=== PATIENT | female | born 1975 | race Caucasian/White ===

== ENCOUNTER 2016-11-08 19:42 | Emergency (ER) | payer OTHER, SELFPAY ==
[2016-11-08] MEDS ORDERED: MORPHINE SULFATE 4 MG INJ IV ONE (20:18)
[2016-11-08] MEDS ORDERED: Phenergan 25 MG INJ IV ONE (20:18)
--- NOTE | 2016-11-08 20:25 | ERPHSYRPT ---
- History of Present Illness Time Seen by Provider: 11/08/16 20:11 Historian: patient Exam Limitations: no limitations Patient Subjective Stated Complaint: states that she began having lower abd pain this morning - painful urination - history of ovarian cysts Triage Nursing Assessment: ambulatory to treatment area - steady gait - moves all extremities with equal strength. alert/oriented - unpleasant affect. skin pwd - no rash/injury. resps easy - non-labored. tenderness of abd Physician History: FOR THE PAST 9 HOURS PT HAS HAD INTERMITTENT SHARP LOWER ABDOMINAL PAIN WITH LOW BACK PAIN LASTING UP TO 5 MINUTES PER EPISODE. LAST BM WAS THIS AM & WNL. LMP STARTED YESTERDAY. PT STATES SHE HAS A HX OF OVARIAN CYSTS. PT DENIES FEVER , COUGH, CHILLS, DIAPHORESIS, DYSURIA; ADMITS TO RIGHT EYE REDNESS SINCE THIS AM. Allergies/Adverse Reactions: Sulfa (Sulfonamide Antibiotics) [Sulfa(Sulfonamide Antibiotics)] Allergy ( Verified 11/08/16 19:52) Home Medications: Chlorzoxazone 500 mg PO Q4-6HPRN 01/03/16 [History] Trihexyphenidyl HCl 4 mg PO TID 01/03/16 [History] Hydrocodone Bit/Acetaminophen [[place]ale 5/325Mg] 1 each PO Q4-6HPRN PRN 02/25/16 [ History] Clonazepam 0.5 mg [Klonopin 0.5 MG] 0.5 mg PO TID 03/07/16 [History] Gabapentin [Neurontin] 300 mg PO HS 03/07/16 [History] Meloxicam 7.5 mg [Mobic 7.5 MG] 7.5 mg PO HS 03/07/16 [History] Dicyclomine HCl [Bentyl] 10 mg PO QID 05/08/16 [History] Hx Tetanus, Diphtheria Vaccination/Date Given: Yes Hx Influenza Vaccination/Date Given: No Hx Pneumococcal Vaccination/Date Given: No Immunizations Up to Date: Yes - Review of Systems Eyes: Eye Redness (RIGHT) Respiratory: No Dyspnea on Exertion (DRUMMOND) Cardiac: No Chest Pain Abdominal/Gastrointestinal: Abdominal Pain Musculoskeletal: Back Pain (LOW) Endocrine: No Excessive Sweating All Other Systems: Reviewed and Negative - Past Medical History Pertinent Past Medical History: Yes Neurological History: No Pertinent History ENT History: No Pertinent History Cardiac History: No Pertinent History Respiratory History: No Pertinent History Endocrine Medical History: No Pertinent History Musculoskeletal History: Other GI Medical History: No Pertinent History History: No Pertinent History Psycho-Social History: Anxiety Female Reproductive Disorders: Abnormal Uterine Bleeding, Menstrual Problems, Other Other Medical History: DYSTONIA DISORDER - Past Surgical History Past Surgical History: Yes Neuro Surgical History: No Pertinent History Cardiac: No Pertinent History Respiratory: No Pertinent History Gastrointestinal: No Pertinent History Genitourinary: No Pertinent History Musculoskeletal: No Pertinent History Female Surgical History: Section, Tubal Ligation, Other Other Surgical History: COCHL. EAR IMPLANT - Social History Smoking Status: Current every day smoker How long have you smoked: 25 Exposure to second hand smoke: No Drug Use: none Patient Lives Alone: No - Female History Hx Last Menstrual Period: 2 days Hx Now: No - Nursing Vital Signs Nursing Vital Signs: Initial Vital Signs Temperature 99.6 F Temperature Source Oral Pulse Rate 80 Respiratory Rate 14 Blood Pressure [] 118/62 Pain Intensity 7 - Physical Exam General Appearance: alert Eye Exam: other (RIGHT CONJUNCTIVAE INJECTED) Ears, Nose, Throat Exam: TMs normal, pharynx normal, moist mucous membranes Neck Exam: normal inspection Respiratory Exam: lungs clear Cardiovascular Exam: normal heart sounds Gastrointestinal/Abdomen Exam: soft, normal bowel sounds, tenderness (MILD LOWER ABDOMINAL TENDERNESS) Back Exam: other (MILD LUMBAR PARAVERTEBRAL MUSCLE TENDERNESS) Extremity Exam: normal inspection, No pedal edema Neurologic Exam: alert, cooperative Skin Exam: warm, dry SpO2 Interpretation: normal SpO2: 99 Oxygen Delivery: Room Air - Course Nursing assessment & vital signs reviewed: Yes - CT Exams Abdomen/Pelvis CT Interpretation: Tele-radiologist Report (NO ACUTE FINDINGS) - Radiology Ultrasound Exam Pelvis Ultrasound: Other (TECH REPORT: NOTHING ABNORMAL.) Ordered Tests: Active Orders 24 hr Category Date Time Status Clean Catch Urine Specimen STAT Care 11/08/16 20:18 Active IV Insertion STAT Care 11/08/16 20:18 Active ABDOMEN AND PELVIS W/0 CONTRAS [CT] Stat Exams 11/08/16 21:03 Taken PELVIS TRANS VAGINAL [US] Stat Exams 11/08/16 20:18 Taken AMYLASE Stat Lab 11/08/16 20:33 Completed CBC W DIFF Stat Lab 11/08/16 20:33 Completed CMP Stat Lab 11/08/16 20:33 Completed HCG QUALITATIVE,SERUM Stat Lab 11/08/16 20:33 Completed LIPASE Stat Lab 11/08/16 20:33 Completed MAGNESIUM Stat Lab 11/08/16 20:33 Completed UA W/ MICROSCOPIC Stat Lab 11/08/16 20:30 Completed Medication Summary Generic Name Dose Route Start Last Admin Trade Name Jackie PRN Reason Stop Dose Admin Sodium Chloride 1,000 mls @ 100 mls/hr 11/08/16 20:30 11/08/16 20:44 Sodium Chloride 0.9% 1000 Ml IV 12/08/16 20:29 100 mls/hr .Q10H NATHALY Administration Discontinued Medications Generic Name Dose Route Start Last Admin Trade Name Jackie PRN Reason Stop Dose Admin Morphine Sulfate 4 mg 11/08/16 20:18 11/08/16 20:44 Morphine Sulfate 4 Mg Inj IV 11/08/16 20:19 4 mg STAT ONE Administration Morphine Sulfate Confirm 11/08/16 20:35 Morphine Sulfate 4 Mg Inj Administered 11/08/16 20:36 Dose 4 mg .ROUTE .STK-MED ONE Promethazine HCl 12.5 mg 11/08/16 20:18 11/08/16 20:44 Phenergan 25 Mg Inj IV 11/08/16 20:19 12.5 mg STAT ONE Administration Promethazine HCl Confirm 11/08/16 20:35 Phenergan 25 Mg Inj Administered 11/08/16 20:36 Dose 25 mg .ROUTE .STK-MED ONE Lab/Rad Data: Laboratory Result Diagrams 11/08/16 20:33 11/08/16 20:33 Laboratory Results 11/08/16 11/08/16 11/08/16 Range/Units 20:33 20:33 20:33 WBC 12.3 H (4.0-10.5) K/mm3 RBC 4.01 L (4.1-5.4) M/mm3 Hgb 11.8 L (12.0-16.0) gm/dl Hct 36.3 (35-47) % MCV 90.5 (78-100) fl MCH 29.4 (26-32) pg MCHC 32.5 (32-36) g/dl RDW 14.6 H (11.5-14.0) % Plt Count 338 (150-450) K/mm3 MPV 10.8 H (6-9.5) fl Gran % 64.9 (36.0-66.0) % Lymphocytes % 26.4 (24.0-44.0) % Monocytes % 6.7 (0.0-12.0) % Eosinophils % 1.4 (0.00-5.0) % Basophils % 0.6 (0.0-0.4) % Basophils # 0.08 (0-0.4) Sodium 139 (136-145) mEq/L Potassium 4.2 (3.5-5.1) mEq/L Chloride 104 (98-107) mEq/L Carbon Dioxide 27.3 (21-32) mEq/L Anion Gap 12.2 (5-15) MEQ/L BUN 15 (9-20) mg/dL Creatinine 0.98 (0.55-1.30) mg/dl Estimated GFR > 60 ML/MIN Glucose 89 (70-110) MG/DL Calcium 8.1 L (8.5-10.1) mg/dL Magnesium 1.8 (1.8-2.4) mg/dL Total Bilirubin 0.1 L (0.2-1.0) mg/dL AST 16 (15-37) U/L ALT 27 (12-78) U/L Alkaline Phosphatase 67 (46-116) U/L Serum Total Protein 6.7 (6.4-8.2) gm/dL Albumin 3.5 (3.4-5.0) g/dL Amylase 39 (25-115) U/L Lipase 138 (73-393) U/L Serum , Qual NEGATIVE (Negative) Ur Collection Type Urine Color (YELLOW) Urine Appearance (CLEAR) Urine pH (5-6) Ur Specific [place] (1.005-1.025) Urine Protein (Negative) Urine Glucose (UA) (NEGATIVE) mg/dL Urine Ketones (NEGATIVE) Urine Nitrite (NEGATIVE) Urine Bilirubin (NEGATIVE) Urine Urobilinogen (0-1) mg/dL Urine WBC (Auto) (NEGATIVE) Urine RBC (Auto) (0-5) Ethan/ul Ur Epithelial Cells (FEW) /HPF Urine Mucus (NEGATIVE) /HPF Specimen Received 11/08/16 Range/Units 20:30 WBC (4.0-10.5) K/mm3 RBC (4.1-5.4) M/mm3 Hgb (12.0-16.0) gm/dl Hct (35-47) % MCV (78-100) fl MCH (26-32) pg MCHC (32-36) g/dl RDW (11.5-14.0) % Plt Count (150-450) K/mm3 MPV (6-9.5) fl Gran % (36.0-66.0) % Lymphocytes % (24.0-44.0) % Monocytes % (0.0-12.0) % Eosinophils % (0.00-5.0) % Basophils % (0.0-0.4) % Basophils # (0-0.4) Sodium (136-145) mEq/L Potassium (3.5-5.1) mEq/L Chloride (98-107) mEq/L Carbon Dioxide (21-32) mEq/L Anion Gap (5-15) MEQ/L BUN (9-20) mg/dL Creatinine (0.55-1.30) mg/dl Estimated GFR ML/MIN Glucose (70-110) MG/DL Calcium (8.5-10.1) mg/dL Magnesium (1.8-2.4) mg/dL Total Bilirubin (0.2-1.0) mg/dL AST (15-37) U/L ALT (12-78) U/L Alkaline Phosphatase (46-116) U/L Serum Total Protein (6.4-8.2) gm/dL Albumin (3.4-5.0) g/dL Amylase (25-115) U/L Lipase (73-393) U/L Serum , Qual (Negative) Ur Collection Type CLEAN CATCH Urine Color YELLOW (YELLOW) Urine Appearance SLIGHTLY CLOUDY (CLEAR) Urine pH 6.0 (5-6) Ur Specific [place] 1.025 (1.005-1.025) Urine Protein 30 (Negative) Urine Glucose (UA) NEGATIVE (NEGATIVE) mg/dL Urine Ketones NEGATIVE (NEGATIVE) Urine Nitrite NEGATIVE (NEGATIVE) Urine Bilirubin NEGATIVE (NEGATIVE) Urine Urobilinogen 1 (0-1) mg/dL Urine WBC (Auto) NEGATIVE (NEGATIVE) Urine RBC (Auto) NEGATIVE (0-5) Ethan/ul Ur Epithelial Cells FEW (FEW) /HPF Urine Mucus SLIGHT (NEGATIVE) /HPF Specimen Received 11/08/16:2330 - Departure Time of Disposition: 22:33 Departure Disposition: Home Clinical Impression: ABDOMINAL PAIN, LOW BACK PAIN, CONJUNCTIVITIS OF RIGHT EYE Condition: Fair Critical Care Time: No Referrals: ELZBIETA VALERA MD [Primary Care Provider] - Instructions: Abdominal Pain-Adult, Low Back Pain, Conjunctivitis Additional Instructions: FOLLOW UP WITH PRIVATE DOCTOR TOMORROW. Prescriptions: Sulfacetamide Sodium Ophth [Sodium Sulamyd Eye Drops 15 ml] 2 drops OP TID #1 bottle
[2016-11-08] MEDS ORDERED: Sodium Chloride 0.9% 1000 ML 1,000 ML IV SCH (20:30)
[2016-11-08] MEDS ORDERED: Phenergan 25 MG INJ ONE (20:35)
[2016-11-08] MEDS ORDERED: Sodium Chloride 0.9% 1000 ML 1,000 ML ONE (20:35)
[2016-11-08] MEDS ORDERED: MORPHINE SULFATE 4 MG INJ ONE (20:35)
[2016-11-08 20:39] LABS: BASOPHIL % 0.6 % (0.0-0.4); Eosinophil % 1.4 % (0.00-5.0); Granulocytes % 64.9 % (36.0-66.0); Lymphocytes % 26.4 % (24.0-44.0); Mean Cell Volume 90.5 fl (78-100); Mean Corpuscular Hemoglobin 29.4 pg (26-32); Mean Platelet Volume 10.8 fl (6-9.5); Monocytes % 6.7 % (0.0-12.0); Platelet Count 338 K/mm3 (150-450); Red Blood Count 4.01 M/mm3 (4.1-5.4); Red Cell Distribution Width 14.6 % (11.5-14.0); White Blood Count 12.3 K/mm3 (4.0-10.5)
[2016-11-08 20:41] LABS: COMPLETE URINE MICROSCOPIC? YES; Collection Type CLEAN CATCH; Epithelial Cells FEW /HPF (FEW); Mucus SLIGHT /HPF (NEGATIVE)
[2016-11-08 21:05] LABS: ALBUMIN 3.5 g/dL (3.4-5.0); ALKALINE PHOSPHATASE 67 U/L (46-116); ANION GAP 12.2 MEQ/L (5-15); BILIRUBIN,TOTAL 0.1 mg/dL (0.2-1.0); BLOOD UREA NITROGEN 15 mg/dL (9-20); CHLORIDE 104 mEq/L (98-107); Carbon Dioxide 27.3 mEq/L (21-32); Glucose 89 MG/DL (70-110); LIPASE 138 U/L (73-393); MAGNESIUM 1.8 mg/dL (1.8-2.4); Potassium 4.2 mEq/L (3.5-5.1); SGOT/AST 16 U/L (15-37); SGPT/ALT 27 U/L (12-78); SODIUM 139 mEq/L (136-145); Total Protein 6.7 gm/dL (6.4-8.2)
[2016-11-08] MEDS ORDERED: Hydromorphone 1 mg/ml Ampule IV ONE (22:37)
[2016-11-08] MEDS ORDERED: SODIUM SULAMYD EYE DROPS 15 ML OP ONE ×2 (22:40→22:45)
[2016-11-08] MEDS ORDERED: Hydromorphone 1 mg/ml Ampule ONE (22:40)
[2016-11-08] MEDS ORDERED: GARAMYCIN 0.3% OPHTH SOL OP ONE (22:41)
[2016-11-08] MEDS ORDERED: GARAMYCIN 0.3% OPHTH SOL ONE (22:44)
[2016-11-08 22:55] VITALS: BP 114/63; PULSE 78; O2SAT 97
--- NOTE | 2016-11-09 08:07 | XRAY ---
Indication: Lower abdominal pain. Dysuria. Multiple contiguous axial images obtained through the abdomen and pelvis without contrast as ordered. Comparison: April 11, 2014. Lung bases demonstrates mild bilateral dependent atelectasis. No consolidation or effusion. Heart is not enlarged. Noncontrasted stomach and bowel loops appear nonobstructed. Mild diffuse scattered colonic fecal debris. Appendix not seen. No free fluid/air. There remains a few bilateral pelvic phleboliths. Remaining liver, gallbladder, pancreas, spleen, adrenal glands, kidneys, ureters, bladder, and uterus appear unremarkable for noncontrast exam. Minimal calcifications of the aortoiliac vessels without AAA. Osseous structures intact. Impression: Mild fecal stasis without obstruction. No new or acute intra-abdominal/pelvic abnormalities on this noncontrast exam. Comment: Preliminary interpretation was made by [facility]. No discrepancy. CTDI 8.48
--- NOTE | 2016-11-09 08:09 | XRAY ---
Indication: Right lower quadrant pain. Two-dimensional transvaginal pelvic ultrasound was performed. Comparison: March 21, 2009. Uterus is anteverted today measuring 9.7 x 4.4 x 5.5 cm. No focal solid/cystic mass. Endometrial stripe measures 5 mm. No endometrial cavity mass or fluid collection. Right ovary measures 1.7 x 1.0 x 1.7 cm and the left measures 1.5 x 0.8 x 1.6 cm. Normal perfusion bilaterally. No suspicious adnexal mass or free fluid. Impression: Negative transvaginal pelvic sonogram. Comment: Preliminary report was given.
== END 2016-11-08 22:57 | disposition home or self-care (01) ==
LOC: ED 19:42
DX: R10.9 Unspecified abdominal pain (principal); M54.5 Low back pain; H10.89 Other conjunctivitis; Z85.43 Personal history of malignant neoplasm of ovary; F17.200 Nicotine dependence, unspecified, uncomplicated
CPT/HCPCS: 36000; 36415; 74176; 76830; 80053; 81000; 82150; 83690; 83735; 84703; 85025; 96360; 96361; 96374; 96375; 99283; 99285; J1170; J2270; J2550; A9270-GY

== ENCOUNTER 2017-09-04 12:17 | Emergency (ER) | payer OTHER ==
[2017-09-04] MEDS ORDERED: Sodium Chloride 0.9% 1000 ML 1,000 ML IV STA (12:31)
[2017-09-04] MEDS ORDERED: TORAdol 30 mg Injection IV ONE (12:31)
[2017-09-04] MEDS ORDERED: ATARAX 25 MG PO ONE (12:32)
[2017-09-04] MEDS ORDERED: ATARAX 25 MG ONE (12:43)
[2017-09-04] MEDS ORDERED: Sodium Chloride 0.9% 1000 ML 1,000 ML ONE (12:43)
[2017-09-04] MEDS ORDERED: TORAdol 30 mg Injection ONE (12:43)
--- NOTE | 2017-09-04 12:44 | ERPHSYRPT ---
- History of Present Illness Time Seen by Provider: 09/04/17 12:19 Source: patient, family Patient Subjective Stated Complaint: PT COMPLAINS OF LOWER ABDOMINAL PAIN SINCE LAST. NIGHT STATES THAT SHE HAS NOTICED THAT SHE HAS. INCREASED ABDOMINAL PAIN WHEN SHE IS ON HER. PERIOD DENIES NAUSEA OR VOMITING. STATES SHE. WAS 2 MONTHS LATE ON HER PERIOD. Triage Nursing Assessment: PT ALERT WARM AND DRY RESP EASY NON LABORED ABDOMEN. SOFT NON TENDER ON PALPATION. Physician History: CC: lower abd pain Hx: 41 y/o patient of Dr Valera with hx of cochlear implant. She has intermittent lower abdominal pain associated with menses. She missed menses for 2 months, now on menses with discomfort. No vomiting. No fever or chills. Normal urination. Some vaginal discharge. She had prior BTL and hernia repairs. Severity of Pain-Max: moderate Severity of Pain-Current: moderate Allergies/Adverse Reactions: Sulfa (Sulfonamide Antibiotics) [Sulfa(Sulfonamide Antibiotics)] Allergy ( Verified 11/08/16 19:52) Home Medications: Trihexyphenidyl HCl 1 mg PO TID 01/03/16 [History] Hydrocodone Bit/Acetaminophen [[place] 5/325Mg] 1 each PO Q4-6HPRN PRN 02/25/16 [ History] Clonazepam 0.5 mg [Klonopin 0.5 MG] 0.5 mg PO TID 03/07/16 [History] Gabapentin [Neurontin] 300 mg PO HS 03/07/16 [History] Dicyclomine HCl [Bentyl] 10 mg PO QID 05/08/16 [History] Hx Tetanus, Diphtheria Vaccination/Date Given: Yes Hx Influenza Vaccination/Date Given: No Hx Pneumococcal Vaccination/Date Given: No - Review of Systems Constitutional: Malaise, No Fever, No Chills Eyes: No Symptoms Ears, Nose, & Throat: No Symptoms Respiratory: No Cough, No Dyspnea Cardiac: No Chest Pain Abdominal/Gastrointestinal: Abdominal Pain, No Nausea, No Vomiting, No Diarrhea Genitourinary Symptoms: Vaginal Bleeding, Vaginal Discharge, No Dysuria, No Musculoskeletal: No Back Pain Skin: No Rash Neurological: No Headache All Other Systems: Reviewed and Negative - Past Medical History Pertinent Past Medical History: Yes Neurological History: No Pertinent History ENT History: No Pertinent History Cardiac History: No Pertinent History Respiratory History: No Pertinent History Endocrine Medical History: No Pertinent History Musculoskeletal History: Other GI Medical History: No Pertinent History History: No Pertinent History Psycho-Social History: Anxiety Female Reproductive Disorders: Abnormal Uterine Bleeding, Menstrual Problems, Other Other Medical History: DYSTONIA DISORDER - Past Surgical History Past Surgical History: Yes Neuro Surgical History: No Pertinent History Cardiac: No Pertinent History Respiratory: No Pertinent History Gastrointestinal: No Pertinent History Genitourinary: No Pertinent History Musculoskeletal: No Pertinent History Female Surgical History: Section, Tubal Ligation, Other Other Surgical History: COCHL. EAR IMPLANT - Social History Smoking Status: Never smoker How long have you smoked: 25 Exposure to second hand smoke: Yes Drug Use: none Patient Lives Alone: No - Female History Hx Last Menstrual Period: NOW Hx Now: (HCG pending) - Nursing Vital Signs Nursing Vital Signs: Initial Vital Signs Temperature 98.4 F 09/04/17 12:31 Pulse Rate 61 09/04/17 12:31 Respiratory Rate 18 09/04/17 12:31 Blood Pressure 96/52 09/04/17 12:31 O2 Sat by Pulse Oximetry 96 09/04/17 12:31 Pain Scale Pain Intensity 6 - Physical Exam General Appearance: alert, thin, other (appears to understand speech and communicates well) Eye Exam: PERRL/EOMI Ears, Nose, Throat Exam: normal ENT inspection, moist mucous membranes Neck Exam: normal inspection, non-tender, supple Respiratory Exam: normal breath sounds, lungs clear Cardiovascular Exam: regular rate/rhythm Gastrointestinal/Abdomen Exam: soft, No tenderness, No distention, No mass, No guarding Pelvic Exam: normal external exam, cervical motion tenderness, vaginal bleeding (menses appears normal and mild), uterine tenderness, No adnexal mass, No vaginal discharge Back Exam: normal inspection, normal range of motion Extremity Exam: normal inspection, normal range of motion Neurologic Exam: alert, oriented x 3, cooperative, sensation nml, No motor deficits Skin Exam: warm, dry, No rash - Course Nursing assessment & vital signs reviewed: Yes - Radiology Exams AAS X-ray Interpretation: Teleradiologist Report, Negative Ordered Tests: Active Orders 24 hr Category Date Time Status Cath for Specimen-Straight STAT Care 09/04/17 12:32 Active IV Insertion STAT Care 09/04/17 12:31 Active Pelvic Exam Assist STAT Care 09/04/17 12:31 Active OBSTR/ACUTE ABDOMEN SERIES Stat Exams 09/04/17 12:31 Completed CBC W DIFF Stat Lab 09/04/17 12:46 Completed CMP Stat Lab 09/04/17 12:46 Completed HCG QUALITATIVE,SERUM Stat Lab 09/04/17 12:46 Completed LIPASE Stat Lab 09/04/17 12:46 Completed UA W/RFX UR CULTURE Stat Lab 09/04/17 13:12 Completed Wet Prep Stat Lab 09/04/17 13:12 Completed Medication Summary Discontinued Medications Generic Name Dose Route Start Last Admin Trade Name Freq PRN Reason Stop Dose Admin Hydroxyzine HCl 25 mg 09/04/17 12:32 09/04/17 12:45 Atarax 25 Mg PO 09/04/17 12:33 25 mg STAT ONE Administration Hydroxyzine HCl Confirm 09/04/17 12:43 Atarax 25 Mg Administered 09/04/17 12:44 Dose 25 mg .ROUTE .STK-MED ONE Sodium Chloride 1,000 mls @ 999 mls/hr 09/04/17 12:31 09/04/17 12:45 Sodium Chloride 0.9% 1000 Ml IV 09/04/17 13:31 999 mls/hr .Q1H1M STA Administration Sodium Chloride Confirm 09/04/17 12:43 Sodium Chloride 0.9% 1000 Ml Administered 09/04/17 12:44 Dose 1,000 mls @ ud .ROUTE .STK-MED ONE Ketorolac Tromethamine 30 mg 09/04/17 12:31 09/04/17 12:45 Toradol 30 Mg Injection IV 09/04/17 12:32 30 mg STAT ONE Administration Ketorolac Tromethamine Confirm 09/04/17 12:43 Toradol 30 Mg Injection Administered 09/04/17 12:44 Dose 30 mg .ROUTE .STK-MED ONE Lab/Rad Data: Laboratory Result Diagrams 09/04/17 12:46 09/04/17 12:46 Laboratory Results 09/04/17 09/04/17 09/04/17 Range/Units 13:12 12:46 12:46 WBC (4.0-10.5) K/mm3 RBC (4.1-5.4) M/mm3 Hgb (12.0-16.0) gm/dl Hct (35-47) % MCV (78-100) fl MCH (26-32) pg MCHC (32-36) g/dl RDW (11.5-14.0) % Plt Count (150-450) K/mm3 MPV (6-9.5) fl Gran % (36.0-66.0) % Lymphocytes % (24.0-44.0) % Monocytes % (0.0-12.0) % Eosinophils % (0.00-5.0) % Basophils % (0.0-0.4) % Basophils # (0-0.4) Sodium 137 (136-145) mEq/L Potassium 4.4 (3.5-5.1) mEq/L Chloride 103 (98-107) mEq/L Carbon Dioxide 26.3 (21-32) mEq/L Anion Gap 12.1 (5-15) MEQ/L BUN 9 (9-20) mg/dL Creatinine 0.82 (0.55-1.30) mg/dl Estimated GFR > 60 ML/MIN Glucose 85 (70-110) MG/DL Calcium 8.4 L (8.5-10.1) mg/dL Total Bilirubin 0.20 (0.2-1.0) mg/dL AST 17 (15-37) U/L ALT 16 (12-78) U/L Alkaline Phosphatase 58 (46-116) U/L Serum Total Protein 6.4 (6.4-8.2) gm/dL Albumin 3.3 L (3.4-5.0) g/dL Lipase 136 (73-393) U/L Serum , Qual NEGATIVE (Negative) Ur Collection Type CATH Urine Color YELLOW (YELLOW) Urine Appearance CLEAR (CLEAR) Urine pH 6.0 (5-6) Ur Specific [place] 1.010 (1.005-1.025) Urine Protein NEGATIVE (Negative) Urine Ketones NEGATIVE (NEGATIVE) Urine Blood NEGATIVE (0-5) Ethan/ul Urine Nitrite NEGATIVE (NEGATIVE) Urine Bilirubin NEGATIVE (NEGATIVE) Urine Urobilinogen NORMAL (0-1) mg/dL Ur Leukocyte Esterase NEGATIVE (NEGATIVE) Urine Culture Reflexed NO (NO) Urine Glucose NEGATIVE (NEGATIVE) mg/dL WBC (Wet Prep) Few RBC (Wet Prep) Many Epi Cells (Wet Prep) Moderate Bacteria (Wet Prep) Moderate Clue Cells (Wet Prep) None Seen Trichomonas (Wet Prep) None Seen Budding Yeast (Wet Prp) None Seen Specimen Received 09/04/17 1315 09/04/17 Range/Units 12:46 WBC 6.4 (4.0-10.5) K/mm3 RBC 4.05 L (4.1-5.4) M/mm3 Hgb 11.8 L (12.0-16.0) gm/dl Hct 36.2 (35-47) % MCV 89.4 (78-100) fl MCH 29.1 (26-32) pg MCHC 32.6 (32-36) g/dl RDW 14.2 H (11.5-14.0) % Plt Count 267 (150-450) K/mm3 MPV 10.3 H (6-9.5) fl Gran % 61.8 (36.0-66.0) % Lymphocytes % 27.8 (24.0-44.0) % Monocytes % 7.3 (0.0-12.0) % Eosinophils % 2.2 (0.00-5.0) % Basophils % 0.9 (0.0-0.4) % Basophils # 0.06 (0-0.4) Sodium (136-145) mEq/L Potassium (3.5-5.1) mEq/L Chloride (98-107) mEq/L Carbon Dioxide (21-32) mEq/L Anion Gap (5-15) MEQ/L BUN (9-20) mg/dL Creatinine (0.55-1.30) mg/dl Estimated GFR ML/MIN Glucose (70-110) MG/DL Calcium (8.5-10.1) mg/dL Total Bilirubin (0.2-1.0) mg/dL AST (15-37) U/L ALT (12-78) U/L Alkaline Phosphatase (46-116) U/L Serum Total Protein (6.4-8.2) gm/dL Albumin (3.4-5.0) g/dL Lipase (73-393) U/L Serum , Qual (Negative) Ur Collection Type Urine Color (YELLOW) Urine Appearance (CLEAR) Urine pH (5-6) Ur Specific [place] (1.005-1.025) Urine Protein (Negative) Urine Ketones (NEGATIVE) Urine Blood (0-5) Ethan/ul Urine Nitrite (NEGATIVE) Urine Bilirubin (NEGATIVE) Urine Urobilinogen (0-1) mg/dL Ur Leukocyte Esterase (NEGATIVE) Urine Culture Reflexed (NO) Urine Glucose (NEGATIVE) mg/dL WBC (Wet Prep) RBC (Wet Prep) Epi Cells (Wet Prep) Bacteria (Wet Prep) Clue Cells (Wet Prep) Trichomonas (Wet Prep) Budding Yeast (Wet Prp) Specimen Received - Progress Progress Note: 09/04/17 13:53 Pt stable. No sign of PID. Abd soft. Will Rx NSAID for dysmenorrhea. Appt for Dr Valera for recheck. Counseled pt/family regarding: lab results, diagnosis, need for follow-up, rad results - Departure Time of Disposition: 13:53 Departure Disposition: Home Clinical Impression: Dysmenorrhea Condition: Stable Critical Care Time: No Referrals: ELZBIETA VALERA MD [Primary Care Provider] - 09/10/17 2:30 pm (September 10 at 2:30PM) Instructions: Menstrual Cramps (DC) Additional Instructions: ABDOMINAL PAIN 1. There are several different causes for abdominal pain, some of which may not be able to be identified on initial examination. 2. The important thing to remember is that bodily functions can change in a short period of time. If you notice any of the following symptoms, return to the emergency department or consult your doctor immediately: A. Worsening pain or no improvement in the next 12 hours. B. Increasing, severe abdominal pain C. Blood in stool D. Black stools E. Persistent vomiting F. Fever or chills or other symptoms Rx Naproxen. Follow up with Dr Valera September 10 at 2:30PM. Prescriptions: Naproxen 500 mg [Naprosyn 500 MG] 500 mg PO BID #20 tablet
[2017-09-04 12:58] LABS: BASOPHIL % 0.9 % (0.0-0.4); Basophil (Absolute #) 0.06 (0-0.4); Eosinophil % 2.2 % (0.00-5.0); Eosinophil (Absolute #) 0.14 (0-0.5); Granulocyte Absolute (ANC) 3.97 (1.4-6.9); Granulocytes % 61.8 % (36.0-66.0); Hematocrit 36.2 % (35-47); Hemoglobin 11.8 gm/dl (12.0-16.0); Lymphocyte (Absolute #) 1.79 (1.0-4.6); Lymphocytes % 27.8 % (24.0-44.0); Mean Cell Volume 89.4 fl (78-100); Mean Corpuscular Hemoglobin 29.1 pg (26-32); Mean Corpuscular Hgb Concent. 32.6 g/dl (32-36); Mean Platelet Volume 10.3 fl (6-9.5); Monocyte (Absolute #) 0.47 (0.0-1.3); Monocytes % 7.3 % (0.0-12.0); Platelet Count 267 K/mm3 (150-450); Red Blood Count 4.05 M/mm3 (4.1-5.4); Red Cell Distribution Width 14.2 % (11.5-14.0); White Blood Count 6.4 K/mm3 (4.0-10.5)
[2017-09-04 13:07] VITALS: O2SAT 96
[2017-09-04 13:15] LABS: ALBUMIN 3.3 g/dL (3.4-5.0); ALKALINE PHOSPHATASE 58 U/L (46-116); ANION GAP 12.1 MEQ/L (5-15); BLOOD UREA NITROGEN 9 mg/dL (9-20); CHLORIDE 103 mEq/L (98-107); Calcium 8.4 mg/dL (8.5-10.1); Carbon Dioxide 26.3 mEq/L (21-32); Creatinine 1 0.82 mg/dl (0.55-1.30); EST GLOMERULAR FILTRATION RATE > 60 ML/MIN; Glucose 85 MG/DL (70-110); LIPASE 136 U/L (73-393); Potassium 4.4 mEq/L (3.5-5.1); SGOT/AST 17 U/L (15-37); SGPT/ALT 16 U/L (12-78); SODIUM 137 mEq/L (136-145); Total Protein 6.4 gm/dL (6.4-8.2)
[2017-09-04 13:21] LABS: Appearance CLEAR (CLEAR); Bacteria Moderate; Bilirubin NEGATIVE (NEGATIVE); Blood NEGATIVE Ery/ul (0-5); Clue Cells None Seen; Glucose NEGATIVE (NEGATIVE); Ketones NEGATIVE (NEGATIVE); Leukocyte Esterase NEGATIVE (NEGATIVE); Nitrite NEGATIVE (NEGATIVE); Protein,Urine Dip NEGATIVE (Negative); Trichomonas None Seen; Urobilinogen NORMAL mg/dL (0-1)
[2017-09-04 13:22] LABS: Red Blood Cells Many; White Blood Cells Few; Yeast None Seen
--- NOTE | 2017-09-04 13:37 | XRAY ---
Indication: Lower abdominal pain 2 days. Comparison: [facility] September 20, 2015. 2 views of the abdomen nonacute and nonobstructed. Solid organs and osseous structures unremarkable. Single PA chest demonstrates minimal mid lung fibrosis/scarring bilaterally. Otherwise normal heart, lungs, and bony thorax. Impression: Negative abdomen. Nonacute 1 view chest.
[2017-09-04 14:01] VITALS: BP 96/62; PULSE 84
== END 2017-09-04 14:08 | disposition home or self-care (01) ==
LOC: ED 12:17
DX: N94.6 Dysmenorrhea, unspecified (principal); Z79.899 Other long term (current) drug therapy
CPT/HCPCS: 36000; 36415; 74022; 80053; 81002; 83690; 84703; 85025; 87210; 87490; 87590; 96360; 96375; 99284; J1885; P9612; A9270-GY

== ENCOUNTER 2019-03-07 13:52 | Emergency (ER) | payer OTHER ==
--- NOTE | 2019-03-07 14:27 | ERPHSYRPT ---
- History of Present Illness Time Seen by Provider: 03/07/19 14:27 Source: patient Exam Limitations: other (pt cannot verbalize after her cva) Patient Subjective Stated Complaint: pt reports nausea, diarrhea, decreased appetite and low energy x 2 days. pt also reports left lower abd pain. pt reports she ended her period yesterday. Triage Nursing Assessment: pt is aox3, pupils perrl, afebrile, resps easy and non labored, radial pulses strong and equal, cap refill < 3 seconds, pt abd soft , tender with palpation to the lower left quadrant, bowel sounds present and normoactive x 4, pt skin pink warm dry. Physician History: 42 y/o white female states she has had diarrhea for last 2 days. she has had associated headache as well. no others individuals with same sx. no recent travel outside [facility]. no recent camping. no recent antibiotic use. she has never had this before Timing/Duration: day(s) (2) Severity: mild Associated Symptoms: nausea, headaches, No vomiting, No abdominal pain Allergies/Adverse Reactions: Sulfa (Sulfonamide Antibiotics) [Sulfa(Sulfonamide Antibiotics)] Allergy ( Verified 03/07/19 14:19) Home Medications: Trihexyphenidyl HCl 1 mg PO TID 01/03/16 [History] Hydrocodone Bit/Acetaminophen [[place] 5/325Mg] 1 each PO Q4-6HPRN PRN 02/25/16 [ History] Clonazepam 0.5 mg [Klonopin 0.5 MG] 0.5 mg PO TID 03/07/16 [History] Gabapentin [Neurontin] 300 mg PO HS 03/07/16 [History] Dicyclomine HCl [Bentyl] 10 mg PO QID 05/08/16 [History] Hx Tetanus, Diphtheria Vaccination/Date Given: Yes Hx Influenza Vaccination/Date Given: Yes Hx Pneumococcal Vaccination/Date Given: No Immunizations Up to Date: Yes - Review of Systems Constitutional: No Symptoms Eyes: No Symptoms Ears, Nose, & Throat: No Symptoms Respiratory: No Symptoms Cardiac: No Symptoms Abdominal/Gastrointestinal: Nausea, Diarrhea Genitourinary Symptoms: No Symptoms Musculoskeletal: No Symptoms Skin: No Symptoms Neurological: Headache Psychological: No Symptoms Endocrine: No Symptoms Hematologic/Lymphatic: No Symptoms Immunological/Allergic: No Symptoms All Other Systems: Reviewed and Negative - Past Medical History Pertinent Past Medical History: Yes Neurological History: No Pertinent History ENT History: No Pertinent History Cardiac History: No Pertinent History Respiratory History: No Pertinent History Endocrine Medical History: No Pertinent History Musculoskeletal History: Other GI Medical History: No Pertinent History History: No Pertinent History Psycho-Social History: Anxiety Female Reproductive Disorders: Abnormal Uterine Bleeding, Menstrual Problems, Other Other Medical History: DYSTONIA DISORDER - Past Surgical History Past Surgical History: Yes Neuro Surgical History: No Pertinent History Cardiac: No Pertinent History Respiratory: No Pertinent History Gastrointestinal: No Pertinent History, Hernia Repair Genitourinary: No Pertinent History Musculoskeletal: No Pertinent History Female Surgical History: Section, Tubal Ligation, Other Other Surgical History: COCHL. EAR IMPLANT - Social History Smoking Status: Never smoker How long have you smoked: 25 Exposure to second hand smoke: Yes Drug Use: none Patient Lives Alone: No - Female History Hx Last Menstrual Period: 03/06/19 Hx Now: No - Nursing Vital Signs Nursing Vital Signs: Initial Vital Signs Temperature 98.9 F 03/07/19 14:09 Pulse Rate 116 H 03/07/19 14:09 Respiratory Rate 20 03/07/19 14:09 Blood Pressure 106/73 03/07/19 14:09 O2 Sat by Pulse Oximetry 97 03/07/19 14:09 Pain Scale Pain Intensity 10 - Physical Exam General Appearance: no apparent distress, alert Eye Exam: PERRL/EOMI, eyes nml inspection Ears, Nose, Throat Exam: normal ENT inspection, moist mucous membranes Neck Exam: normal inspection, non-tender, supple, full range of motion Respiratory Exam: normal breath sounds, lungs clear, airway intact, No chest tenderness, No respiratory distress Cardiovascular Exam: normal peripheral pulses, tachycardia Gastrointestinal/Abdomen Exam: soft, normal bowel sounds, No tenderness Pelvic Exam: not done Rectal Exam: not done Back Exam: normal inspection, normal range of motion, No CVA tenderness, No vertebral tenderness Extremity Exam: normal inspection, normal range of motion, pelvis stable Neurologic Exam: alert, oriented x 3, cooperative, 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, normal mood/affect Skin Exam: normal color, warm, dry Lymphatic Exam: No adenopathy SpO2 Interpretation: normal SpO2: 97 O2 Delivery: Room Air - Course Nursing assessment & vital signs reviewed: Yes Ordered Tests: Active Orders 24 hr Category Date Time Status IV Insertion STAT Care 03/07/19 14:36 Active AMYLASE Stat Lab 03/07/19 14:46 Completed CBC W DIFF Stat Lab 03/07/19 14:46 Completed CMP Stat Lab 03/07/19 14:46 Completed LIPASE Stat Lab 03/07/19 14:46 Completed Lactic Acid Stat Lab 03/07/19 15:42 Completed UA W/RFX UR CULTURE Stat Lab 03/07/19 16:30 Completed Medication Summary Discontinued Medications Generic Name Dose Route Start Last Admin Trade Name Jackie PRN Reason Stop Dose Admin Sodium Chloride 1,000 mls @ 999 mls/hr 03/07/19 14:36 03/07/19 16:50 Sodium Chloride 0.9% 1000 Ml IV 03/07/19 15:36 Infused .Q1H1M STA Infusion Sodium Chloride Confirm 03/07/19 15:31 Sodium Chloride 0.9% 1000 Ml Administered 03/07/19 15:32 Dose 1,000 mls @ ud .ROUTE .STK-MED ONE Metronidazole 500 mg 03/07/19 16:10 03/07/19 16:20 Flagyl 500 Mg PO 03/07/19 16:11 500 mg STAT ONE Administration Metronidazole Confirm 03/07/19 16:20 Flagyl 500 Mg Administered 03/07/19 16:21 Dose 500 mg .ROUTE .STK-MED ONE Ondansetron HCl 4 mg 03/07/19 14:36 03/07/19 15:32 Zofran 4 Mg/2 Ml Vial IV 03/07/19 14:37 4 mg STAT ONE Administration Ondansetron HCl Confirm 03/07/19 15:31 Zofran 4 Mg/2 Ml Vial Administered 03/07/19 15:32 Dose 4 mg .ROUTE .STK-MED ONE Lab/Rad Data: Laboratory Result Diagrams 03/07/19 14:46 03/07/19 14:46 Laboratory Results 03/07/19 03/07/19 03/07/19 Range/Units 16:30 15:42 14:46 WBC (4.0-10.5) K/mm3 RBC (4.1-5.4) M/mm3 Hgb (12.0-16.0) gm/dl Hct (35-47) % MCV (78-100) fl MCH (26-32) pg MCHC (32-36) g/dl RDW (11.5-14.0) % Plt Count (150-450) K/mm3 MPV (6-9.5) fl Gran % (36.0-66.0) % Eos # (Auto) (0-0.5) Absolute Lymphs (auto) (1.0-4.6) Absolute Monos (auto) (0.0-1.3) Lymphocytes % (24.0-44.0) % Monocytes % (0.0-12.0) % Eosinophils % (0.00-5.0) % Basophils % (0.0-0.4) % Absolute Granulocytes (1.4-6.9) Basophils # (0-0.4) Sodium 136 L (137-145) mmol/L Potassium 3.9 (3.5-5.1) mmol/L Chloride 101 (98-107) mmol/L Carbon Dioxide 24 (22-30) mmol/L Anion Gap 15.2 H (5-15) MEQ/L BUN 11 (7-17) mg/dL Creatinine 0.72 (0.52-1.04) mg/dL Estimated GFR > 60.0 ML/MIN Glucose 121 H (74-106) mg/dL Lactic Acid 0.9 (0.4-2.0) Calcium 9.7 (8.4-10.2) mg/dL Total Bilirubin 0.60 (0.2-1.3) mg/dL AST 25 (14-36) U/L ALT 17 (0-35) U/L Alkaline Phosphatase 72 (38-126) U/L Serum Total Protein 8.3 H (6.3-8.2) g/dL Albumin 4.9 (3.5-5.0) g/dL Amylase 77 (30-110) U/L Lipase 68 (23-300) U/L Urine Color YELLOW (YELLOW) Urine Appearance SLIGHTLY CLOUDY (CLEAR) Urine pH 6.0 (5-6) Ur Specific [place] 1.015 (1.005-1.025) Urine Protein NEGATIVE (Negative) Urine Ketones TRACE (NEGATIVE) Urine Blood MODERATE (0-5) Ethan/ul Urine Nitrite NEGATIVE (NEGATIVE) Urine Bilirubin NEGATIVE (NEGATIVE) Urine Urobilinogen NEGATIVE (0-1) mg/dL Ur Leukocyte Esterase NEGATIVE (NEGATIVE) Urine WBC (Auto) 0-2 (0-5) /HPF Urine RBC (Auto) NONE (0-2) /HPF U Epithel Cells (Auto) RARE (FEW) /HPF Urine Bacteria (Auto) NONE (NEGATIVE) /HPF Urine Mucus (Auto) SLIGHT (NEGATIVE) /HPF Urine Culture Reflexed NO (NO) Urine Glucose NEGATIVE (NEGATIVE) mg/dL 03/07/19 Range/Units 14:46 WBC 8.6 (4.0-10.5) K/mm3 RBC 5.01 (4.1-5.4) M/mm3 Hgb 15.5 (12.0-16.0) gm/dl Hct 44.8 (35-47) % MCV 89.4 (78-100) fl MCH 30.9 (26-32) pg MCHC 34.6 (32-36) g/dl RDW 14.4 H (11.5-14.0) % Plt Count 325 (150-450) K/mm3 MPV 10.7 H (6-9.5) fl Gran % 77.5 H (36.0-66.0) % Eos # (Auto) 0.05 (0-0.5) Absolute Lymphs (auto) 1.22 (1.0-4.6) Absolute Monos (auto) 0.58 (0.0-1.3) Lymphocytes % 14.2 L (24.0-44.0) % Monocytes % 6.8 (0.0-12.0) % Eosinophils % 0.6 (0.00-5.0) % Basophils % 0.9 (0.0-0.4) % Absolute Granulocytes 6.65 (1.4-6.9) Basophils # 0.08 (0-0.4) Sodium (137-145) mmol/L Potassium (3.5-5.1) mmol/L Chloride (98-107) mmol/L Carbon Dioxide (22-30) mmol/L Anion Gap (5-15) MEQ/L BUN (7-17) mg/dL Creatinine (0.52-1.04) mg/dL Estimated GFR ML/MIN Glucose (74-106) mg/dL Lactic Acid (0.4-2.0) Calcium (8.4-10.2) mg/dL Total Bilirubin (0.2-1.3) mg/dL AST (14-36) U/L ALT (0-35) U/L Alkaline Phosphatase (38-126) U/L Serum Total Protein (6.3-8.2) g/dL Albumin (3.5-5.0) g/dL Amylase (30-110) U/L Lipase (23-300) U/L Urine Color (YELLOW) Urine Appearance (CLEAR) Urine pH (5-6) Ur Specific [place] (1.005-1.025) Urine Protein (Negative) Urine Ketones (NEGATIVE) Urine Blood (0-5) Ethan/ul Urine Nitrite (NEGATIVE) Urine Bilirubin (NEGATIVE) Urine Urobilinogen (0-1) mg/dL Ur Leukocyte Esterase (NEGATIVE) Urine WBC (Auto) (0-5) /HPF Urine RBC (Auto) (0-2) /HPF U Epithel Cells (Auto) (FEW) /HPF Urine Bacteria (Auto) (NEGATIVE) /HPF Urine Mucus (Auto) (NEGATIVE) /HPF Urine Culture Reflexed (NO) Urine Glucose (NEGATIVE) mg/dL - Progress Progress: improved, re-examined Counseled pt/family regarding: lab results, diagnosis, need for follow-up - Departure Departure Disposition: Home Clinical Impression: Colitis, UTI (urinary tract infection) Condition: Stable Critical Care Time: No Referrals: ELZBIETA VALERA MD [Primary Care Provider] - Additional Instructions: drink plenty of fluids. follow up with primary doctor for further management Prescriptions: Metronidazole 500 mg [Flagyl 500 MG] 500 mg PO TID #21 tablet Phenazopyridine HCl 200 mg [Pyridium 200 mg] 200 mg PO TID #6 tablet
[2019-03-07] MEDS ORDERED: Zofran 4 MG/2 ML VIAL IV ONE (14:36)
[2019-03-07] MEDS ORDERED: Sodium Chloride 0.9% 1000 ML 1,000 ML IV STA (14:36)
[2019-03-07 14:59] LABS: BASOPHIL % 0.9 % (0.0-0.4); Basophil (Absolute #) 0.08 (0-0.4); Eosinophil % 0.6 % (0.00-5.0); Eosinophil (Absolute #) 0.05 (0-0.5); Granulocyte Absolute (ANC) 6.65 (1.4-6.9); Granulocytes % 77.5 % (36.0-66.0); Hematocrit 44.8 % (35-47); Hemoglobin 15.5 gm/dl (12.0-16.0); Lymphocyte (Absolute #) 1.22 (1.0-4.6); Lymphocytes % 14.2 % (24.0-44.0); Mean Cell Volume 89.4 fl (78-100); Mean Corpuscular Hemoglobin 30.9 pg (26-32); Mean Corpuscular Hgb Concent. 34.6 g/dl (32-36); Mean Platelet Volume 10.7 fl (6-9.5); Monocyte (Absolute #) 0.58 (0.0-1.3); Monocytes % 6.8 % (0.0-12.0); Platelet Count 325 K/mm3 (150-450); Red Blood Count 5.01 M/mm3 (4.1-5.4); Red Cell Distribution Width 14.4 % (11.5-14.0); White Blood Count 8.6 K/mm3 (4.0-10.5)
[2019-03-07 15:10] LABS: ALBUMIN 4.9 g/dL (3.5-5.0); ALKALINE PHOSPHATASE 72 U/L (38-126); AMYLASE 77 U/L (30-110); ANION GAP 15.2 MEQ/L (5-15); BLOOD UREA NITROGEN 11 mg/dL (7-17); CHLORIDE 101 mmol/L (98-107); Calcium 9.7 mg/dL (8.4-10.2); Carbon Dioxide 24 mmol/L (22-30); Creatinine 1 0.72 mg/dL (0.52-1.04); Glucose 121 mg/dL (74-106); LIPASE 68 U/L (23-300); Potassium 3.9 mmol/L (3.5-5.1); SGOT/AST 25 U/L (14-36); SGPT/ALT 17 U/L (0-35); SODIUM 136 mmol/L (137-145); Total Protein 8.3 g/dL (6.3-8.2)
[2019-03-07] MEDS ORDERED: Zofran 4 MG/2 ML VIAL ONE (15:31)
[2019-03-07] MEDS ORDERED: Sodium Chloride 0.9% 1000 ML 1,000 ML ONE (15:31)
[2019-03-07 16:09] VITALS: O2SAT 97
[2019-03-07] MEDS ORDERED: Flagyl 500 MG PO ONE (16:10)
[2019-03-07] MEDS ORDERED: Flagyl 500 MG ONE (16:20)
[2019-03-07 16:37] LABS: Appearance SLIGHTLY CLOUDY (CLEAR); Bilirubin NEGATIVE (NEGATIVE); Blood MODERATE Ery/ul (0-5); Epithelial Cells RARE /HPF (FEW); Glucose NEGATIVE (NEGATIVE); Ketones TRACE (NEGATIVE); Leukocyte Esterase NEGATIVE (NEGATIVE); Mucus SLIGHT /HPF (NEGATIVE); Nitrite NEGATIVE (NEGATIVE); Protein,Urine Dip NEGATIVE (Negative); Specific Gravity 1.015 (1.005-1.025); Urobilinogen NEGATIVE mg/dL (0-1); WBC 0-2 /HPF (0-5)
[2019-03-07 17:14] VITALS: BP 120/78; PULSE 84
== END 2019-03-07 17:22 | disposition home or self-care (01) ==
LOC: ED 13:52
DX: K52.9 Noninfective gastroenteritis and colitis, unspecified (principal); N39.0 Urinary tract infection, site not specified
CPT/HCPCS: 36000; 36415; 80053; 81001; 82150; 83605; 83690; 85025; 96360; 96374; 99284; J2405; A9270-GY

== ENCOUNTER 2020-04-18 13:12 | Emergency (ER) | payer OTHER ==
[2020-04-18] MEDS ORDERED: Zofran 4 MG/2 ML VIAL IV ONE (13:41)
[2020-04-18] MEDS ORDERED: Hydromorphone 1 mg/ml Ampule IV ONE (13:41)
[2020-04-18] MEDS ORDERED: Sodium Chloride 0.9% 1000 ML 1,000 ML IV STA (13:41)
[2020-04-18] MEDS ORDERED: Protonix 40MG Tablet PO ONE (13:41)
--- NOTE | 2020-04-18 13:51 | ERPHSYRPT ---
- History of Present Illness Time Seen by Provider: 04/18/20 13:40 Patient Subjective Stated Complaint: abd pain Triage Nursing Assessment: pt to ED c/o R abd pain x about 1 week. pt rates 10/10 pain, denies NV but possibly had diarrhea. denies urinary issues currently. denies COVID exposure, no fever at home. pt also reports menstral issues and irreg cycles, currently menstrating. Physician History: Is a 44-year-old female who presents with a complaint of abdominal pain she is been sick for a week sleeping a lot up to 20 hours/day she is complained of a sore throat and stomach plain. Has had decreased p.o. intake the pain is generalized primarily epigastric he has had some fever but no chills or sweats and her only previous surgeries included the removal of some nondescript tumors apparently. He has not had any nausea or vomiting but she has had diarrhea Activities at Onset: none Quality: cramping Abdominal Pain Onset Location: RUQ, LUQ, epigastric Pain Radiation: no radiation Severity of Pain-Max: moderate Severity of Pain-Current: moderate Modifying Factors: Improves With: nothing Associated Symptoms: fever/chills, loss of appetite, nausea Previous symptoms: same symptoms as today Allergies/Adverse Reactions: Sulfa (Sulfonamide Antibiotics) [Sulfa(Sulfonamide Antibiotics)] Allergy (Verified 04/18/20 13:37) Home Medications: Trihexyphenidyl HCl 1 mg PO TID 01/03/16 [History] Hydrocodone Bit/Acetaminophen [[place] 5/325Mg] 1 each PO Q4-6HPRN PRN 02/25/16 [History] Clonazepam 0.5 mg [Klonopin 0.5 MG] 0.5 mg PO TID 03/07/16 [History] Gabapentin [Neurontin] 300 mg PO HS 03/07/16 [History] Dicyclomine HCl [Bentyl] 10 mg PO QID 05/08/16 [History] Hx Tetanus, Diphtheria Vaccination/Date Given: No Hx Influenza Vaccination/Date Given: No Hx Pneumococcal Vaccination/Date Given: No Immunizations Up to Date: No Travel Risk - International Travel Have you traveled outside of the country in past 3 weeks: No - Coronavirus Screening Are you exhibiting any of the following symptoms?: Yes Symptoms: Vomiting/Diarrhea Close contact with a COVID-19 positive Pt in past 14-21 Days: No - Review of Systems Constitutional: Fever, No Chills Eyes: No Symptoms Ears, Nose, & Throat: No Symptoms Respiratory: No Cough, No Dyspnea Cardiac: No Chest Pain, No Edema, No Syncope Abdominal/Gastrointestinal: Abdominal Pain, Diarrhea, Hematochezia, No Nausea, No Vomiting Genitourinary Symptoms: No Dysuria Musculoskeletal: No Back Pain, No Neck Pain Skin: No Rash Neurological: No Dizziness, No Focal Weakness, No Sensory Changes Psychological: No Symptoms Endocrine: No Symptoms All Other Systems: Reviewed and Negative - Past Medical History Pertinent Past Medical History: Yes Neurological History: No Pertinent History ENT History: No Pertinent History Cardiac History: No Pertinent History Respiratory History: No Pertinent History Endocrine Medical History: No Pertinent History Musculoskeletal History: Other GI Medical History: No Pertinent History History: No Pertinent History Psycho-Social History: Anxiety Female Reproductive Disorders: Abnormal Uterine Bleeding, Menstrual Problems, Other Other Medical History: DYSTONIA DISORDER - Past Surgical History Past Surgical History: Yes Neuro Surgical History: No Pertinent History Cardiac: No Pertinent History Respiratory: No Pertinent History Gastrointestinal: No Pertinent History Genitourinary: No Pertinent History Musculoskeletal: No Pertinent History Female Surgical History: Section, Tubal Ligation, Other Other Surgical History: COCHL. EAR IMPLANT - Social History Smoking Status: Current every day smoker How long have you smoked: 25 Exposure to second hand smoke: Yes Drug Use: none Patient Lives Alone: No - Female History Hx Now: No (currently on period) - Nursing Vital Signs Nursing Vital Signs: Initial Vital Signs Temperature 98.8 F 04/18/20 13:30 Pulse Rate 68 04/18/20 13:30 Respiratory Rate 14 04/18/20 13:30 Blood Pressure 117/63 04/18/20 13:30 O2 Sat by Pulse Oximetry 99 04/18/20 13:30 Pain Scale Pain Intensity 10 - Physical Exam General Appearance: mild distress, alert Eye Exam: PERRL/EOMI, eyes nml inspection Ears, Nose, Throat Exam: normal ENT inspection, moist mucous membranes, pharyngeal erythema Neck Exam: normal inspection, non-tender, supple, full range of motion Respiratory Exam: normal breath sounds, lungs clear, No respiratory distress Cardiovascular Exam: regular rate/rhythm, normal heart sounds Gastrointestinal/Abdomen Exam: soft, tenderness (History of), No mass Back Exam: normal inspection, normal range of motion, No CVA tenderness, No vertebral tenderness Extremity Exam: normal inspection, normal range of motion, pelvis stable Neurologic Exam: alert, oriented x 3, cooperative, normal mood/affect, nml cerebellar function, sensation nml, No motor deficits Skin Exam: normal color, warm, dry SpO2 Interpretation: normal SpO2: 99 O2 Delivery: Room Air - Course Nursing assessment & vital signs reviewed: Yes EKG Interpreted by Me: RATE (63), Sinus Rhythm, NORMAL AXIS, NORMAL INTERVALS, NORMAL QRS, Non-specific ST Changes, Other (poor R wave progression) - CT Exams Abdomen/Pelvis CT Interpretation: Other (Scan indicates dilation of the duodenum and proximal jejunum with fluid-filled areas consistent with enteritis) Ordered Tests: Active Orders 24 hr Category Date Time Status EKG-ER Only STAT Care 04/18/20 13:41 Active IV Insertion STAT Care 04/18/20 13:41 Active ABDOMEN AND PELVIS W CONTRAST [CT] Stat Exams 04/18/20 13:42 Completed CHEST 1 VIEW (PORTABLE) Stat Exams 04/18/20 13:42 Completed AMYLASE Stat Lab 04/18/20 13:33 Completed CBC W DIFF Stat Lab 04/18/20 13:33 Completed CMP Stat Lab 04/18/20 13:33 Completed LIPASE Stat Lab 04/18/20 13:33 Completed Lactic Acid Stat Lab 04/18/20 13:41 Completed [place] Screen Stat Lab 04/18/20 15:00 Completed PROTIME WITH INR Stat Lab 04/18/20 13:33 Completed TROPONIN Q3H Lab 04/18/20 14:00 Completed TROPONIN Q3H Lab 04/18/20 16:45 Ordered TROPONIN Q3H Lab 04/18/20 19:45 Ordered TROPONIN Q3H Lab 04/18/20 22:45 Ordered TROPONIN Q3H Lab 04/19/20 01:45 Ordered UA W/RFX UR CULTURE Stat Lab 04/18/20 14:01 Completed Medication Summary Discontinued Medications Generic Name Dose Route Start Last Admin Trade Name Freq PRN Reason Stop Dose Admin Hydromorphone HCl 1 mg 04/18/20 13:41 Hydromorphone 1 Mg/Ml Ampule IV 04/18/20 13:42 STAT ONE Hydromorphone HCl Confirm 04/18/20 15:08 Hydromorphone 1 Mg/Ml Ampule Administered 04/18/20 15:09 Dose 1 mg .ROUTE .STK-MED ONE Sodium Chloride 1,000 mls @ 999 mls/hr 04/18/20 13:41 04/18/20 15:13 Sodium Chloride 0.9% 1000 Ml IV 04/18/20 14:41 999 mls/hr .Q1H1M STA Administration Sodium Chloride Confirm 04/18/20 15:08 Sodium Chloride 0.9% 1000 Ml Administered 04/18/20 15:09 Dose 1,000 mls @ ud .ROUTE .STK-MED ONE Ondansetron HCl 4 mg 04/18/20 13:41 04/18/20 15:14 Zofran 4 Mg/2 Ml Vial IV 04/18/20 13:42 4 mg STAT ONE Administration Ondansetron HCl Confirm 04/18/20 15:08 Zofran 4 Mg/2 Ml Vial Administered 04/18/20 15:09 Dose 4 mg .ROUTE .STK-MED ONE Pantoprazole Sodium 40 mg 04/18/20 13:41 04/18/20 15:15 Protonix 40mg Tablet PO 04/18/20 13:42 40 mg STAT ONE Administration Pantoprazole Sodium Confirm 04/18/20 15:08 Protonix 40 Mg Iv Administered 04/18/20 15:09 Dose 40 mg IV .STK-MED ONE Pantoprazole Sodium Confirm 04/18/20 15:15 Protonix 40mg Tablet Administered 04/18/20 15:16 Dose 40 mg .ROUTE .STK-MED ONE Lab/Rad Data: Laboratory Result Diagrams 04/18/20 13:33 04/18/20 13:33 Laboratory Results 04/18/20 04/18/20 04/18/20 Range/Units 15:00 14:01 14:00 WBC (4.0-10.5) K/mm3 RBC (4.1-5.4) M/mm3 Hgb (12.0-16.0) gm/dl Hct (35-47) % MCV (78-100) fl MCH (26-32) pg MCHC (32-36) g/dl RDW (11.5-14.0) % Plt Count (150-450) K/mm3 MPV (7.5-11.0) fl Gran % (36.0-66.0) % Eos # (Auto) (0-0.5) Absolute Lymphs (auto) (1.0-4.6) Absolute Monos (auto) (0.0-1.3) Lymphocytes % (24.0-44.0) % Monocytes % (0.0-12.0) % Eosinophils % (0.00-5.0) % Basophils % (0.0-0.4) % Absolute Granulocytes (1.4-6.9) Basophils # (0-0.4) PT (9.95-12.35) SECONDS INR (0.8-3.0) Sodium (137-145) mmol/L Potassium (3.5-5.1) mmol/L Chloride (98-107) mmol/L Carbon Dioxide (22-30) mmol/L Anion Gap (5-15) MEQ/L BUN (7-17) mg/dL Creatinine (0.52-1.04) mg/dL Estimated GFR ML/MIN Glucose (74-106) mg/dL Lactic Acid (0.4-2.0) Calcium (8.4-10.2) mg/dL Total Bilirubin (0.2-1.3) mg/dL AST (14-36) U/L ALT (0-35) U/L Alkaline Phosphatase (38-126) U/L Troponin I < 0.012 (0.000-0.034) ng/mL Serum Total Protein (6.3-8.2) g/dL Albumin (3.5-5.0) g/dL Amylase (30-110) U/L Lipase (23-300) U/L Urine Color YELLOW (YELLOW) Urine Appearance SLIGHTLY CLOUDY (CLEAR) Urine pH 6.0 (5-6) Ur Specific [place] 1.013 (1.005-1.025) Urine Protein NEGATIVE (Negative) Urine Ketones NEGATIVE (NEGATIVE) Urine Blood NEGATIVE (0-5) Ethan/ul Urine Nitrite NEGATIVE (NEGATIVE) Urine Bilirubin NEGATIVE (NEGATIVE) Urine Urobilinogen NEGATIVE (0-1) mg/dL Ur Leukocyte Esterase NEGATIVE (NEGATIVE) Urine WBC (Auto) 3-5 (0-5) /HPF Urine RBC (Auto) NONE (0-2) /HPF U Epithel Cells (Auto) RARE (FEW) /HPF Urine Bacteria (Auto) NONE (NEGATIVE) /HPF Urine Mucus (Auto) SLIGHT (NEGATIVE) /HPF Urine Culture Reflexed NO (NO) Urine Glucose NEGATIVE (NEGATIVE) mg/dL Monoscreen NEGATIVE (Negative) 04/18/20 04/18/20 04/18/20 Range/Units 13:41 13:33 13:33 WBC (4.0-10.5) K/mm3 RBC (4.1-5.4) M/mm3 Hgb (12.0-16.0) gm/dl Hct (35-47) % MCV (78-100) fl MCH (26-32) pg MCHC (32-36) g/dl RDW (11.5-14.0) % Plt Count (150-450) K/mm3 MPV (7.5-11.0) fl Gran % (36.0-66.0) % Eos # (Auto) (0-0.5) Absolute Lymphs (auto) (1.0-4.6) Absolute Monos (auto) (0.0-1.3) Lymphocytes % (24.0-44.0) % Monocytes % (0.0-12.0) % Eosinophils % (0.00-5.0) % Basophils % (0.0-0.4) % Absolute Granulocytes (1.4-6.9) Basophils # (0-0.4) PT 12.9 H (9.95-12.35) SECONDS INR 1.14 (0.8-3.0) Sodium 139 (137-145) mmol/L Potassium 3.0 L (3.5-5.1) mmol/L Chloride 104 (98-107) mmol/L Carbon Dioxide 25 (22-30) mmol/L Anion Gap 12.4 (5-15) MEQ/L BUN 9 (7-17) mg/dL Creatinine 0.70 (0.52-1.04) mg/dL Estimated GFR > 60.0 ML/MIN Glucose 148 H (74-106) mg/dL Lactic Acid 2.1 H (0.4-2.0) Calcium 9.2 (8.4-10.2) mg/dL Total Bilirubin 0.20 (0.2-1.3) mg/dL AST 21 (14-36) U/L ALT 18 (0-35) U/L Alkaline Phosphatase 73 (38-126) U/L Troponin I (0.000-0.034) ng/mL Serum Total Protein 7.5 (6.3-8.2) g/dL Albumin 4.5 (3.5-5.0) g/dL Amylase 54 (30-110) U/L Lipase 41 (23-300) U/L Urine Color (YELLOW) Urine Appearance (CLEAR) Urine pH (5-6) Ur Specific [place] (1.005-1.025) Urine Protein (Negative) Urine Ketones (NEGATIVE) Urine Blood (0-5) Ethan/ul Urine Nitrite (NEGATIVE) Urine Bilirubin (NEGATIVE) Urine Urobilinogen (0-1) mg/dL Ur Leukocyte Esterase (NEGATIVE) Urine WBC (Auto) (0-5) /HPF Urine RBC (Auto) (0-2) /HPF U Epithel Cells (Auto) (FEW) /HPF Urine Bacteria (Auto) (NEGATIVE) /HPF Urine Mucus (Auto) (NEGATIVE) /HPF Urine Culture Reflexed (NO) Urine Glucose (NEGATIVE) mg/dL Monoscreen (Negative) 04/18/20 Range/Units 13:33 WBC 8.8 (4.0-10.5) K/mm3 RBC 4.20 (4.1-5.4) M/mm3 Hgb 12.9 (12.0-16.0) gm/dl Hct 39.3 (35-47) % MCV 93.6 (78-100) fl MCH 30.7 (26-32) pg MCHC 32.8 (32-36) g/dl RDW 14.6 H (11.5-14.0) % Plt Count 365 (150-450) K/mm3 MPV 11.3 H (7.5-11.0) fl Gran % 66.2 H (36.0-66.0) % Eos # (Auto) 0.23 (0-0.5) Absolute Lymphs (auto) 2.03 (1.0-4.6) Absolute Monos (auto) 0.66 (0.0-1.3) Lymphocytes % 23.1 L (24.0-44.0) % Monocytes % 7.5 (0.0-12.0) % Eosinophils % 2.6 (0.00-5.0) % Basophils % 0.6 (0.0-0.4) % Absolute Granulocytes 5.83 (1.4-6.9) Basophils # 0.05 (0-0.4) PT (9.95-12.35) SECONDS INR (0.8-3.0) Sodium (137-145) mmol/L Potassium (3.5-5.1) mmol/L Chloride (98-107) mmol/L Carbon Dioxide (22-30) mmol/L Anion Gap (5-15) MEQ/L BUN (7-17) mg/dL Creatinine (0.52-1.04) mg/dL Estimated GFR ML/MIN Glucose (74-106) mg/dL Lactic Acid (0.4-2.0) Calcium (8.4-10.2) mg/dL Total Bilirubin (0.2-1.3) mg/dL AST (14-36) U/L ALT (0-35) U/L Alkaline Phosphatase (38-126) U/L Troponin I (0.000-0.034) ng/mL Serum Total Protein (6.3-8.2) g/dL Albumin (3.5-5.0) g/dL Amylase (30-110) U/L Lipase (23-300) U/L Urine Color (YELLOW) Urine Appearance (CLEAR) Urine pH (5-6) Ur Specific [place] (1.005-1.025) Urine Protein (Negative) Urine Ketones (NEGATIVE) Urine Blood (0-5) Ethan/ul Urine Nitrite (NEGATIVE) Urine Bilirubin (NEGATIVE) Urine Urobilinogen (0-1) mg/dL Ur Leukocyte Esterase (NEGATIVE) Urine WBC (Auto) (0-5) /HPF Urine RBC (Auto) (0-2) /HPF U Epithel Cells (Auto) (FEW) /HPF Urine Bacteria (Auto) (NEGATIVE) /HPF Urine Mucus (Auto) (NEGATIVE) /HPF Urine Culture Reflexed (NO) Urine Glucose (NEGATIVE) mg/dL Monoscreen (Negative) - Progress Progress: improved - Departure Departure Disposition: Home Clinical Impression: Enteritis, Throat pain, Somnolence Condition: Stable Critical Care Time: No Referrals: ELZBIETA VALERA MD [Primary Care Provider] - Instructions: Acute Abdomen (Belly Pain), Adult (DC) Prescriptions: Hydrocodone/APAP 5-325 Tab^^^ [[place] 5-325 Tablet^^^] 1 tab PO Q6HPRN PRN #10 tablet MDD 6 PRN Reason: Pain Dicyclomine HCl 20 mg [Bentyl 20 mg] 20 mg PO TID 10 Days #30 tablet Metronidazole 500 mg [Flagyl 500 MG] 500 mg PO TID 10 Days #30 tablet
[2020-04-18 14:13] LABS: Appearance SLIGHTLY CLOUDY (CLEAR); Bilirubin NEGATIVE (NEGATIVE); Blood NEGATIVE Ery/ul (0-5); Epithelial Cells RARE /HPF (FEW); Glucose NEGATIVE (NEGATIVE); Ketones NEGATIVE (NEGATIVE); Leukocyte Esterase NEGATIVE (NEGATIVE); Mucus SLIGHT /HPF (NEGATIVE); Nitrite NEGATIVE (NEGATIVE); Protein,Urine Dip NEGATIVE (Negative); Specific Gravity 1.013 (1.005-1.025); Urobilinogen NEGATIVE mg/dL (0-1)
[2020-04-18 14:18] LABS: Absolute Neutrophil Ct (ANC) 5.83 (1.4-6.9); BASOPHIL % 0.6 % (0.0-0.4); Basophil (Absolute #) 0.05 (0-0.4); Eosinophil % 2.6 % (0.00-5.0); Eosinophil (Absolute #) 0.23 (0-0.5); Hematocrit 39.3 % (35-47); Hemoglobin 12.9 gm/dl (12.0-16.0); Lymphocyte (Absolute #) 2.03 (1.0-4.6); Lymphocytes % 23.1 % (24.0-44.0); Mean Cell Volume 93.6 fl (78-100); Mean Corpuscular Hemoglobin 30.7 pg (26-32); Mean Corpuscular Hgb Concent. 32.8 g/dl (32-36); Mean Platelet Volume 11.3 fl (7.5-11.0); Monocyte (Absolute #) 0.66 (0.0-1.3); Monocytes % 7.5 % (0.0-12.0); Neutrophil % 66.2 % (36.0-66.0); Platelet Count 365 K/mm3 (150-450); Red Cell Distribution Width 14.6 % (11.5-14.0); White Blood Count 8.8 K/mm3 (4.0-10.5)
[2020-04-18 14:34] LABS: INR 1.14 (0.8-3.0); PROTIME 12.9 SECONDS (9.95-12.35)
--- NOTE | 2020-04-18 14:37 | XRAY ---
Indication: Bilateral abdomen pain. Multiple contiguous axial images obtained through the abdomen and pelvis using 80 cc Isovue 370 contrast. Comparison: November 08, 2016. Lung bases again demonstrates minimal dependent atelectasis. No infiltrate or effusion. Heart is not enlarged. Noncontrasted stomach and bowel loops appear nonobstructed. A few jejunal bowel loops are now mildly fluid distended with fluid leveling unchanged on delayed images, ileus versus enteritis. Appendix not seen. No free fluid/air. Remaining liver, gallbladder, pancreas, spleen, adrenal glands, kidneys, ureters, bladder, and uterus appear unremarkable. Again minimal aortic calcifications. No AAA or pathologic retroperitoneal lymphadenopathy. Osseous structures intact. No ventral or inguinal hernias. Impression: 1. Mild fluid distended jejunal bowel loops with fluid leveling, ileus versus enteritis. 2. Remaining CT abdomen/pelvis with contrast exam is negative.
[2020-04-18 14:39] LABS: ALBUMIN 4.5 g/dL (3.5-5.0); ALKALINE PHOSPHATASE 73 U/L (38-126); AMYLASE 54 U/L (30-110); ANION GAP 12.4 MEQ/L (5-15); BLOOD UREA NITROGEN 9 mg/dL (7-17); CHLORIDE 104 mmol/L (98-107); Calcium 9.2 mg/dL (8.4-10.2); Carbon Dioxide 25 mmol/L (22-30); EST GLOMERULAR FILTRATION RATE > 60.0 ML/MIN; Glucose 148 mg/dL (74-106); LIPASE 41 U/L (23-300); SGOT/AST 21 U/L (14-36); SGPT/ALT 18 U/L (0-35); SODIUM 139 mmol/L (137-145); Total Protein 7.5 g/dL (6.3-8.2)
--- NOTE | 2020-04-18 14:54 | XRAY ---
Indication: Abdomen pain. Nonverbal. Comparison: July 06, 2015. Portable chest demonstrates normal heart, lungs, and bony thorax. Incidental contrast in the system from CT abdomen/pelvis of the same day.
[2020-04-18] MEDS ORDERED: Sodium Chloride 0.9% 1000 ML 1,000 ML ONE (15:08)
[2020-04-18] MEDS ORDERED: Zofran 4 MG/2 ML VIAL ONE (15:08)
[2020-04-18] MEDS ORDERED: PROTONIX 40 MG IV IV ONE (15:08)
[2020-04-18] MEDS ORDERED: Hydromorphone 1 mg/ml Ampule ONE (15:08)
[2020-04-18] MEDS ORDERED: Protonix 40MG Tablet ONE (15:15)
[2020-04-18 16:08] VITALS: BP 102/63; PULSE 86; O2SAT 98
== END 2020-04-18 16:11 | disposition home or self-care (01) ==
LOC: ED 13:12
DX: K52.9 Noninfective gastroenteritis and colitis, unspecified (principal); R07.0 Pain in throat; R40.0 Somnolence
CPT/HCPCS: 36000; 36415; 71045; 74177; 80053; 81001; 82150; 83605; 83690; 84484; 85025; 85610; 86308; 87651; 93005; 96374; 99284; J1170; J2405; A9270-GY

== ENCOUNTER 2021-07-27 14:59 | Emergency (ER) | payer OTHER ==
[2021-07-27 15:27] VITALS: BP 104/63; PULSE 78; O2SAT 97
[2021-07-27] MEDS ORDERED: TORAdol 30 mg Injection IM ONE (15:30)
[2021-07-27] MEDS ORDERED: Augmentin 875-125 Tablet PO ONE (15:31)
[2021-07-27] MEDS ORDERED: TORAdol 30 mg Injection ONE (15:41)
[2021-07-27] MEDS ORDERED: Augmentin 875-125 Tablet ONE (15:41)
--- NOTE | 2021-07-27 15:45 | ERPHSYRPT ---
- History of Present Illness Time Seen by Provider: 07/27/21 15:17 Source: patient Exam Limitations: no limitations Patient Subjective Stated Complaint: C/O left tooth/jaw pain and pressure across forehead. States by writing out on paper, "my sinuses have been draining non- stop." Triage Nursing Assessment: Patient ambulated back to ED. Patient is alert and oriented. She is legally deaf and has trouble verbally communication at times but will read lips as able and write out answers. Noted that upper teeth to left side of mouth have obvious cavities. Gums red/inflammed. No sores noted inside of mouth. No nasal drainage noted upon exam at this time. Physician History: 45 years old female presented to the ER with chief complaint of left upper jaw pain/toothache for the last 4 days, constant, moderate to severe intensity, sharp nature without any significant relieving factor, associated with worsening on movements and some sinus congestion. No fever or chills reported. Timing/Duration: gradual onset, persistent, days (4) Severity: moderate ENT Location: facial, dental Prearrival Treatment: over the counter meds Associated Symptoms: facial pain/swelling, swollen glands, sinus infection, tooth pain Allergies/Adverse Reactions: Sulfa (Sulfonamide Antibiotics) [Sulfa(Sulfonamide Antibiotics)] Allergy (Verified 07/27/21 15:16) Home Medications: Trihexyphenidyl HCl 1 mg PO TID 01/03/16 [History] Hydrocodone Bit/Acetaminophen [[place] 5/325Mg] 1 each PO Q4-6HPRN PRN 02/25/16 [History] Clonazepam 0.5 mg [Klonopin 0.5 MG] 0.5 mg PO TID 03/07/16 [History] Gabapentin [Neurontin] 300 mg PO HS 03/07/16 [History] Dicyclomine HCl [Bentyl] 10 mg PO QID 05/08/16 [History] Hx Tetanus, Diphtheria Vaccination/Date Given: No Hx Influenza Vaccination/Date Given: No Hx Pneumococcal Vaccination/Date Given: No Immunizations Up to Date: Yes Travel Risk - International Travel Have you traveled outside of the country in past 3 weeks: No - Coronavirus Screening Are you exhibiting any of the following symptoms?: No Close contact with a COVID-19 positive Pt in past 14-21 Days: No - Vaccine Status Have you recieved a Covid-19 vaccination: Yes 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: [place] - Vaccination Dates Date of 2cond Vaccination (if applicable): 07/01/21 - Review of Systems Constitutional: No Symptoms Eyes: No Symptoms Ears, Nose, & Throat: Sinus Drainage Respiratory: No Symptoms Cardiac: No Symptoms Abdominal/Gastrointestinal: No Symptoms Genitourinary Symptoms: No Symptoms Musculoskeletal: No Symptoms Skin: No Symptoms Neurological: No Symptoms Endocrine: No Symptoms Hematologic/Lymphatic: No Symptoms - Past Medical History Pertinent Past Medical History: Yes Neurological History: No Pertinent History ENT History: No Pertinent History Cardiac History: No Pertinent History Respiratory History: No Pertinent History Endocrine Medical History: No Pertinent History Musculoskeletal History: Other GI Medical History: No Pertinent History History: No Pertinent History Psycho-Social History: Anxiety Female Reproductive Disorders: Abnormal Uterine Bleeding, Menstrual Problems, Other Other Medical History: DYSTONIA DISORDER, Patient is deaf - Past Surgical History Past Surgical History: Yes Neuro Surgical History: No Pertinent History Cardiac: No Pertinent History Respiratory: No Pertinent History Gastrointestinal: No Pertinent History Genitourinary: No Pertinent History Musculoskeletal: No Pertinent History Female Surgical History: Section, Tubal Ligation, Other Other Surgical History: COCHL. EAR IMPLANT - Social History Smoking Status: Former smoker How long have you smoked: 25 Exposure to second hand smoke: Yes Drug Use: none Patient Lives Alone: No - Female History Hx Now: No - Nursing Vital Signs Nursing Vital Signs: Initial Vital Signs Temperature 98.4 F 07/27/21 15:17 Pulse Rate 78 07/27/21 15:17 Respiratory Rate 20 07/27/21 15:17 Blood Pressure 104/63 07/27/21 15:17 O2 Sat by Pulse Oximetry 97 07/27/21 15:17 Pain Scale Pain Intensity 10 - Physical Exam General Appearance: no apparent distress, alert Eye Exam: bilateral eye: normal inspection, PERRL, EOMI Ear Exam: bilateral ear: auricle normal, canal normal, TM normal Nasal Exam: normal inspection Throat Exam: dental tenderness (Left upper teeth with periodontal disease, mild gum swelling.), pharynx swelling, No uvula swelling Neck Exam: normal inspection, non-tender, supple, full range of motion Cardiovascular/Respiratory Exam: normal breath sounds, regular rate/rhythm Neurologic Exam: alert, oriented x 3, cooperative, fountain 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 II-XII nml as tested Skin Exam: cyanosis SpO2 Interpretation: normal SpO2: 97 O2 Delivery: Room Air Ordered Tests: Medication Summary Discontinued Medications Generic Name Dose Route Start Last Admin Trade Name Freq PRN Reason Stop Dose Admin Amoxicillin/Clavulanate Potassium 875 mg 07/27/21 15:31 Amox Tr/Potassium Clavulanate 875 Mg Tablet PO 07/27/21 15:32 STAT ONE Ketorolac Tromethamine 30 mg 07/27/21 15:30 Ketorolac Tromethamine 30 Mg/Ml Inj IM 07/27/21 15:31 STAT ONE - Progress Progress: unchanged, pain not gone completely Progress Note: 07/27/21 15:43 She is given symptomatic treatment for pain and started on antibiotics. Recommended outpatient dental follow-up. Counseled pt/family regarding: diagnosis, need for follow-up - Departure Departure Disposition: Home Clinical Impression: Dental infection Condition: Stable Critical Care Time: No Referrals: ELZBIETA VALERA MD [Primary Care Provider] - Follow up/PCP as directed (In 2 days for reevaluation) SHLELY RAMIRES DDS [NON-STAFF PHY W/O PRIVILEGES] - (In 2 days for reevaluation.) Instructions: Tooth Abscess (DC), Dental Pain (DC) Additional Instructions: Take Tylenol/ibuprofen as needed for pain. Follow-up with primary care and dentist for reevaluation. Return to ER for worsening swelling or if develop fever chills etc. Prescriptions: Ibuprofen 600 mg PO Q6HPRN PRN 10 Days #20 tablet PRN Reason: Pain Amox Tr/Potass Clav. 875 mg [Augmentin 875-125 Tablet] 875 mg PO BID #14 tablet
== END 2021-07-27 16:11 | disposition home or self-care (01) ==
LOC: ED 14:59
DX: K04.7 Periapical abscess without sinus (principal); H91.93 Unspecified hearing loss, bilateral; Z79.891 Long term (current) use of opiate analgesic
CPT/HCPCS: 96372; 99283; J1885; A9270-GY

== ENCOUNTER 2021-09-22 17:26 | Emergency (ER) | payer MEDICAID, OTHER ==
[2021-09-22 17:32] VITALS: BP 107/58; PULSE 59; O2SAT 98
[2021-09-22] MEDS ORDERED: TORAdol 30 mg Injection IM ONE (17:43)
[2021-09-22] MEDS ORDERED: TORAdol 30 mg Injection ONE (17:46)
--- NOTE | 2021-09-22 17:47 | ERPHSYRPT ---
- History of Present Illness Time Seen by Provider: 09/22/21 17:45 Source: patient Exam Limitations: no limitations Patient Subjective Stated Complaint: pt here for possible needle broke off in tongue after trying to piercing it Triage Nursing Assessment: pt alert, sh[place]cock, resp easy, face mask in place, unable to visualize needlen no bleeding noted Physician History: pt here for possible needle broke off in tongue after trying to piercing it Prearrival Treatment: no prearrival treatment Associated Symptoms: denies symptoms Allergies/Adverse Reactions: Sulfa (Sulfonamide Antibiotics) [Sulfa(Sulfonamide Antibiotics)] Allergy (Verified 07/27/21 15:16) Home Medications: Trihexyphenidyl HCl 1 mg PO TID 01/03/16 [History] Clonazepam 0.5 mg [Klonopin 0.5 MG] 0.5 mg PO TID 03/07/16 [History] Gabapentin [Neurontin] 300 mg PO HS 03/07/16 [History] Tizanidine HCl 4 mg [Zanaflex 4 MG] 1 ea DAILY 09/22/21 [History] Hx Tetanus, Diphtheria Vaccination/Date Given: No Hx Influenza Vaccination/Date Given: No Hx Pneumococcal Vaccination/Date Given: No Immunizations Up to Date: Yes Travel Risk - International Travel Have you traveled outside of the country in past 3 weeks: No - Coronavirus Screening Are you exhibiting any of the following symptoms?: No - Vaccine Status Have you recieved a Covid-19 vaccination: Yes Superintendent Pressure: Citizen.VC - Vaccination Dates Date of 2cond Vaccination (if applicable): 07/01/21 - Review of Systems Constitutional: No Symptoms Eyes: No Symptoms Ears, Nose, & Throat: Mouth Pain Respiratory: No Symptoms Cardiac: No Symptoms Abdominal/Gastrointestinal: No Symptoms Genitourinary Symptoms: No Symptoms Musculoskeletal: No Symptoms - Past Medical History Pertinent Past Medical History: Yes Neurological History: No Pertinent History ENT History: No Pertinent History Cardiac History: No Pertinent History Respiratory History: No Pertinent History Endocrine Medical History: No Pertinent History Musculoskeletal History: Other GI Medical History: No Pertinent History History: No Pertinent History Psycho-Social History: Anxiety Female Reproductive Disorders: Abnormal Uterine Bleeding, Menstrual Problems, Other Other Medical History: DYSTONIA DISORDER, Patient is deaf - Past Surgical History Past Surgical History: Yes Neuro Surgical History: No Pertinent History Cardiac: No Pertinent History Respiratory: No Pertinent History Gastrointestinal: No Pertinent History Genitourinary: No Pertinent History Musculoskeletal: No Pertinent History Female Surgical History: Section, Tubal Ligation, Other Other Surgical History: COCHL. EAR IMPLANT - Social History Smoking Status: Former smoker How long have you smoked: 25 Exposure to second hand smoke: Yes Drug Use: none Patient Lives Alone: No - Female History Hx Last Menstrual Period: none Hx Now: No - Nursing Vital Signs Nursing Vital Signs: Initial Vital Signs Temperature 97.5 F 09/22/21 17:31 Pulse Rate 59 L 09/22/21 17:31 Respiratory Rate 18 09/22/21 17:31 Blood Pressure 107/58 09/22/21 17:31 O2 Sat by Pulse Oximetry 98 09/22/21 17:31 Pain Scale Pain Intensity 10 - Physical Exam General Appearance: no apparent distress, alert Eye Exam: bilateral eye: normal inspection Ear Exam: bilateral ear: auricle normal, TM normal Nasal Exam: normal inspection Throat Exam: pharynx normal, moist mucus membranes, No dental tenderness, No excessive drooling Neck Exam: normal inspection, non-tender, supple (no visible foreign body) Cardiovascular/Respiratory Exam: chest non-tender Abdominal Exam: non-tender Neurologic Exam: alert, oriented x 3 SpO2: 98 - Course Nursing assessment & vital signs reviewed: Yes - Radiology Exams Other X-ray Interpretation: Reviewed by me (needle in tongue) Ordered Tests: Active Orders 24 hr Category Date Time Status NECK SOFT TISSUE Stat Exams 09/22/21 17:43 Taken Medication Summary Discontinued Medications Generic Name Dose Route Start Last Admin Trade Name Daveq PRN Reason Stop Dose Admin Ketorolac Tromethamine 60 mg 09/22/21 17:43 09/22/21 17:46 Ketorolac Tromethamine 30 Mg/Ml Inj IM 09/22/21 17:44 60 mg STAT ONE Administration Ketorolac Tromethamine Confirm 09/22/21 17:46 Ketorolac Tromethamine 30 Mg/Ml Inj Administered 09/22/21 17:47 Dose 60 mg .ROUTE .STK-MED ONE - Progress Progress: improved, pain not gone completely Counseled pt/family regarding: diagnosis, need for follow-up - Departure Departure Disposition: Home Clinical Impression: Superficial injury of tongue Foreign body of tongue Qualifiers: Encounter type: initial encounter Qualified Code(s): S00.552A - Superficial foreign body of oral cavity, initial encounter Condition: Stable Critical Care Time: Yes Critical Care Time(excluding separately billable procedures): Critical 30-74 mins Referrals: ELZBIETA VALERA MD [Primary Care Provider] - Follow up/PCP as directed AGNIESZKA CHIANG [NON-STAFF PHY W/O PRIVILEGES] - Follow up/PCP as directed (follow up in office tommorow at [address] Chiang) Additional Instructions: Discharge/Care Plan ERICKSON SALGADO was seen on 09/22/21 in the Emergency Room. The patient was counseled regarding Diagnosis,Lab results, Imaging studies, need for follow up and when to return to the Emergency Room. Prescriptions given: Discharge Note I have spoken with the patient and/or caregivers. I have explained the patient's condition, diagnosis and treatment plan based on the information available to me at this time. I have answered the patient's and/or caregiver's questions and addressed any concerns. The patient and/or caregivers have as good understanding of the patient's diagnosis, condition and treatment plan as can be expected at this point. The vital signs have been stable. The patient's condition is stable and appropriate for discharge from the emergency department. The patient will pursue further outpatient evaluation with the primary care physician or other designated or consulting physician as outlined in the discharge instructions. The patient and/or caregivers are agreeable to this plan of care and follow-up instructions have been explained in detail. The patient and/or caregivers have received these instruction. The patient/and or caregivers are aware that any significant change in condition or worsening of symptoms should prompt an immediate return to this or the closest emergency department or call 911. ERICKSON SALGADO was seen on 09/22/21 n the Emergency Room. At that time you were treated for an emergent condition, during your visit Laboratory, Radiology and/or other procedures may have been ordered. It is very important that you follow-up with your Primary Care Physician ELZBIETA VALERA within the next 24-48 hours to review your Emergency Room visit and the final results of testing that was ordered. Some test results such as Urine Cultures, Blood Cultures, and other cultures if ordered will not be finalized for 24-48 hours. If you do not have a Primary Care Provider please call the medical records department at [phone] to obtain a copy of your results or you may sign into our patient portal to obtain these results by visiting us @ [email or web address] and completing the following steps: 1. Click on the Patient Portal link 2. Click the Patient Self Enrollment Link to complete the enrollment form and entering your 3. Once the enrollment form is completed you will receive an email with a temporary ID and password at the email address you provided. 4. Next choose a user name and password. Your user name must be at least 4 characters long and your password must be at least 4 characters long. 5. Choose a security question from the list and provide your answer to the question. If you already have signed into the Health Portal you may access your Health Care Information 02/03 by the following steps: 1. Login to our website @ [email or web address] 2. Enter your original user name and password. FAQS The [facility] Health Portal is an online tool that contains your Lab Results, Radiology Reports, Visit History, Discharge Instructions and Health Summary Lab and Radiology Results will not be available for 72 hours on the portal. The Portal is a secure site, passwords are encryted and URLs are re-written so they cannot be copied and pasted. You and authorized family members are the only ones who can access your Portal. Also there is a timeout feature that protects your information if you leave the Portal page open. If you have technical difficulty please use the Contact Us link on the page this will allow you to submit any questions you have regarding the Portal or you may contact the Medical Record Department at [phone] ext [phone].
[2021-09-22] MEDS ORDERED: Rocephin 1000 MG INJ IM ONE (18:44)
[2021-09-22] MEDS ORDERED: XYLOCAINE 1% HCL 20 ML MDV ONE (18:46)
[2021-09-22] MEDS ORDERED: Rocephin 1000 MG INJ ONE (18:46)
--- NOTE | 2021-09-23 08:33 | XRAY ---
Indication: Foreign body/needle. Comparison: None AP/lateral soft tissue neck demonstrates foreign body needle in base of mouth. Incidental left cochlear implant and right hearing aid. No other bony, articular, or soft tissue abnormalities.
== END 2021-09-22 19:17 | disposition home or self-care (01) ==
LOC: ED 17:26
DX: S00.552A Superficial foreign body of oral cavity, initial encounter (principal); W26.8XXA Contact with other sharp object(s), not elsewhere classified, initial encounter; W45.8XXA Other foreign body or object entering through skin, initial encounter; H91.93 Unspecified hearing loss, bilateral; G24.9 Dystonia, unspecified; Z79.899 Other long term (current) drug therapy; Z96.21 Cochlear implant status
CPT/HCPCS: 70360; 96372; 99284; 99291; J0696; J1885

== ENCOUNTER 2022-02-15 21:36 | Emergency (ER) | payer MEDICAID ==
[2022-02-15] MEDS ORDERED: Lidoderm Patch 5% TOP STA (22:30)
[2022-02-15] MEDS ORDERED: NORCO 5/325 MG PO ONE (22:32)
[2022-02-15] MEDS ORDERED: TORAdol 30 mg Injection IM ONE (22:32)
[2022-02-15] MEDS ORDERED: TORAdol 30 mg Injection ONE (22:34)
--- NOTE | 2022-02-15 22:34 | ERPHSYRPT ---
- History of Present Illness Time Seen by Provider: 02/15/22 22:10 Source: patient, EMS Patient Subjective Stated Complaint: back pain x2-3 days Triage Nursing Assessment: Pt c/o low back pain at the spine and has pain that radiates down to her thighs bilat. Pain x2-3 days and worse today. Pt arrived via ambulance. Physician History: The patient is a 46-year-old female who presents with a chief complaint of low back pain, specifically left paralumbar spine back pain radiates down her left leg to her left toe. Onset reports 2 days ago. Of note, details pertaining HI were limited due to the patient having difficulty hearing and speech difficulties given that she had no teeth and was difficult to understand Her was at bedside and also had a hard time understanding the patient as well. When I could ascertain is that she started to experience low back pain 2 days ago. She apparently is on gabapentin for pain but has not take anything else for pain to include Tylenol and/or ibuprofen. She denies any traumatic injury resulting in the pain, history of IV drug abuse, bladder or bowel incontinence, fever, chills, anticoagulation use, any history of immunosuppression to include HIV, denies history of TB or any purposeful weight loss or night sweats. There is no known history of malignancy. The patient was transported by EMS to the emergency department. Allergies/Adverse Reactions: Sulfa (Sulfonamide Antibiotics) [Sulfa(Sulfonamide Antibiotics)] Allergy (Verified 02/15/22 21:49) Home Medications: Trihexyphenidyl HCl 1 mg PO TID 01/03/16 [History] Clonazepam 0.5 mg [Klonopin 0.5 MG] 0.5 mg PO TID 03/07/16 [History] Gabapentin [Neurontin] 800 mg PO TID 03/07/16 [History] Tizanidine HCl 4 mg [Zanaflex 4 MG] 1 ea PO DAILY 09/22/21 [History] Hx Tetanus, Diphtheria Vaccination/Date Given: Yes Hx Influenza Vaccination/Date Given: No Hx Pneumococcal Vaccination/Date Given: No Immunizations Up to Date: Yes Travel Risk - International Travel Have you traveled outside of the country in past 3 weeks: No - Coronavirus Screening Are you exhibiting any of the following symptoms?: No Close contact with a COVID-19 positive Pt in past 14-21 Days: No - Vaccine Status Have you recieved a Covid-19 vaccination: Yes 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 - Review of Systems Constitutional: No Fever, No Chills, No Fatigue Genitourinary Symptoms: No Dysuria, No Frequency Musculoskeletal: Back Pain All Other Systems: Reviewed and Negative - Past Medical History Pertinent Past Medical History: Yes Neurological History: No Pertinent History ENT History: No Pertinent History Cardiac History: No Pertinent History Respiratory History: No Pertinent History Endocrine Medical History: No Pertinent History Musculoskeletal History: Other GI Medical History: No Pertinent History History: No Pertinent History Psycho-Social History: Anxiety Female Reproductive Disorders: Abnormal Uterine Bleeding, Menstrual Problems, Other Other Medical History: DYSTONIA DISORDER, Patient is deaf - Past Surgical History Past Surgical History: Yes Neuro Surgical History: No Pertinent History Cardiac: No Pertinent History Respiratory: No Pertinent History Gastrointestinal: No Pertinent History Genitourinary: No Pertinent History Musculoskeletal: No Pertinent History Female Surgical History: Section, Tubal Ligation, Other Other Surgical History: COCHL. EAR IMPLANT - Social History Smoking Status: Never smoker How long have you smoked: 25 Exposure to second hand smoke: Yes Drug Use: none Patient Lives Alone: No - Female History Hx Now: No - Nursing Vital Signs Nursing Vital Signs: Initial Vital Signs Temperature 98.4 F 02/15/22 21:36 Pulse Rate 96 H 02/15/22 21:36 Respiratory Rate 16 02/15/22 21:36 Blood Pressure 103/68 02/15/22 21:36 O2 Sat by Pulse Oximetry 97 02/15/22 21:36 Pain Scale Pain Intensity [] 10 Pain Intensity 8 - Physical Exam General Appearance: no apparent distress, alert, other (The patient appeared to be older than her stated age) Eye Exam: other (The patient had a contusion around her left eye which was reportedly from a fall) Ears, Nose, Throat Exam: other (The patient was hard of hearing and had a hearing aid in the right ear, edentulous) Neck Exam: normal inspection, non-tender, supple Respiratory Exam: normal breath sounds, lungs clear, airway intact, No respiratory distress, No diminished breath sounds Cardiovascular Exam: regular rate/rhythm, normal heart sounds, normal peripheral pulses, No murmur, No friction rub, No gallop Gastrointestinal/Abdomen Exam: soft Rectal Exam: tenderness Back Exam: normal inspection, No CVA tenderness, No vertebral tenderness, No point tenderness Extremity Exam: normal inspection, other (Knee flexion extension 5 out of 5 bilaterally, plantarflexion and dorsiflexion 5 out of 5 bilaterally, the patient is able to stand and stand memberships of her toes) Neurologic Exam: alert, oriented x 3, cooperative Skin Exam: normal color, warm, dry SpO2 Interpretation: normal SpO2: 97 - Course Nursing assessment & vital signs reviewed: Yes - Radiology Exams L-Spine X-ray Interpretation: Interpreted by me, Reviewed by me, Negative (No acute fracture or dislocation.) Ordered Tests: Active Orders 24 hr Category Date Time Status Re-Check Vital Signs STAT Care 02/15/22 23:15 Completed LUMBAR LIMITED (2 OR 3 VIEWS) Stat Exams 02/15/22 22:29 Taken HCG,QUALITATIVE URINE Stat Lab 02/15/22 22:37 Completed UA W/RFX CULTURE Stat Lab 02/15/22 22:41 Completed Urine Triage Profile Stat Lab 02/15/22 22:37 Completed Medication Summary Discontinued Medications Generic Name Dose Route Start Last Admin Trade Name Jackie PRN Reason Stop Dose Admin Hydrocodone Bitart/Acetaminophen 1 tab 02/15/22 22:32 02/15/22 23:15 Hydrocodone/Apap 5/325 Mg Tablet PO 02/15/22 22:33 1 tab SENT HOME W/ PATIENT ONE Administration Hydrocodone Bitart/Acetaminophen Confirm 02/15/22 23:13 Hydrocodone/Apap 5/325 Mg Tablet Administered 02/15/22 23:14 Dose 1 tab .ROUTE .STK-MED ONE Ketorolac Tromethamine 30 mg 02/15/22 22:32 02/15/22 22:53 Ketorolac Tromethamine 30 Mg/Ml Inj IM 02/15/22 22:33 30 mg STAT ONE Administration Ketorolac Tromethamine Confirm 02/15/22 22:34 Ketorolac Tromethamine 30 Mg/Ml Inj Administered 02/15/22 22:35 Dose 30 mg .ROUTE .STK-MED ONE Lidocaine 1 patch 02/15/22 22:30 02/15/22 22:53 Lidocaine Hcl 1 Patch Patch TOP 02/15/22 22:31 1 patch STAT STA Administration Lab/Rad Data: Laboratory Results 02/15/22 02/15/22 02/15/22 Range/Units 22:41 22:37 22:37 Urinalys Dipstick Clnc MAIN LAB Urine Color YELLOW (YELLOW) Urine Appearance CLEAR (CLEAR) Urine pH 6.0 (5-6) Ur Specific [place] 1.010 (1.005-1.025) POC Urine Protein Conf NEGATIVE (Negative) Urine Ketones NEGATIVE (NEGATIVE) Urine Nitrite NEGATIVE (NEGATIVE) Urine Bilirubin NEGATIVE (NEGATIVE) Urine Urobilinogen 0.2 (0-1) mg/dL Urine Leukocytes NEGATIVE (NEGATIVE) Urine WBC (Auto) 0-2 (0-5) /HPF Urine RBC (Auto) NONE (0-2) /HPF U Epithel Cells (Auto) RARE (FEW) /HPF Urine Bacteria (Auto) NONE SEEN (NEGATIVE) /HPF Urine RBC NEGATIVE (0-5) Ethan/ul Urine Mucus (Auto) SLIGHT (NEGATIVE) /HPF Ur Culture Indicated? NO Urine Glucose NEGATIVE (NEGATIVE) mg/dL Urine HCG, Qual NEGATIVE (Negative) Urine Opiates Level NEGATIVE (NEGATIVE) Ur Methadone NEGATIVE (NEGATIVE) Urine Barbiturates NEGATIVE (NEGATIVE) Ur Phencyclidine (PCP) NEGATIVE (NEGATIVE) Urine Amphetamine NEGATIVE (NEGATIVE) U Benzodiazepine Level NEGATIVE (NEGATIVE) Urine Cocaine NEGATIVE (NEGATIVE) Urine Marijuana (THC) NEGATIVE (NEGATIVE) - Progress Progress: improved Progress Note: 02/15/22 22:33 Inspect reviewed and it appears the patient is prescribed clonazepam 1 mg tablets for a total of 60 tablets that was filled on February 07, 2022 in addition the patient is also prescribed gabapentin 800 mg tablets and 90 tablets refilled on February 07, 2022 as well. 02/15/22 23:21 The patient was updated with her x-ray findings and laboratory work-up and need to follow-up with her primary care provider for further evaluation and management of low back pain. When I entered the room, she was sitting in the bed in no obvious distress. Her legs were crossed and she was operating a smart phone. She was asking for a prescription of Lortab in addition to [place] however I told her that I did not think this was appropriate to be prescribed for this kind of pain at this point and if she needed a prescription other than what was given to her in the emergency department tonight, that she would need to follow-up with her primary care provider to have this prescribed. I think if necessary that she can be arranged for PT by her PCP if deemed necessary. I have a low suspicion for cauda equina syndrome, spinal epidural abscess, spinal hematoma, conus medullaris syndrome, or vertebral osteomyelitis at this time. Therefore, advanced imaging such as CT and/or MRI was not pursued. Counseled pt/family regarding: lab results, diagnosis, need for follow-up, rad results - Departure Departure Disposition: Home Clinical Impression: Low back pain Condition: Stable Critical Care Time: No Referrals: ELZBIETA VALERA MD [Primary Care Provider] - Follow up/PCP as directed Instructions: Low Back Pain (DC) Additional Instructions: Please take Tylenol and/or ibuprofen as needed for pain. Please use the Lidoderm patches prescribed you for pain control as well follow-up with your primary care provider for further evaluation and management and to be referred to physical therapy for your back pain. Prescriptions: Lidocaine HCl 5% Patch [Lidoderm Patch 5%] 1 patch TOP DAILY #7 patch
[2022-02-15 22:54] LABS: Appearance CLEAR (CLEAR); Bilirubin NEGATIVE (NEGATIVE); Dipstick done @ ? MAIN LAB; Glucose NEGATIVE (NEGATIVE); Ketones NEGATIVE (NEGATIVE); Nitrite NEGATIVE (NEGATIVE); Protein,Urine Dip NEGATIVE (Negative); RBC NEGATIVE Ery/ul (0-5); Urobilinogen 0.2 mg/dL (0-1)
[2022-02-15 22:56] LABS: Epithelial Cells RARE /HPF (FEW); Mucus SLIGHT /HPF (NEGATIVE); WBC 0-2 /HPF (0-5)
[2022-02-15 23:01] LABS: Bacteria NONE SEEN /HPF (NEGATIVE); Urine Cultured Indicated? NO
[2022-02-15 23:04] LABS: Amphetamine,Urine NEGATIVE (NEGATIVE); Barbiturate,Urine NEGATIVE (NEGATIVE); Benzodiazepine,Urine NEGATIVE (NEGATIVE); Cocaine,Urine NEGATIVE (NEGATIVE); Methadone,Urine NEGATIVE (NEGATIVE); Opiate,Urine NEGATIVE (NEGATIVE); PCP,Urine NEGATIVE (NEGATIVE); THC,Urine NEGATIVE (NEGATIVE)
[2022-02-15] MEDS ORDERED: NORCO 5/325 MG ONE (23:13)
[2022-02-15 23:25] VITALS: BP 104/63; PULSE 78
[2022-02-16 03:40] VITALS: O2SAT 97
--- NOTE | 2022-02-16 07:50 | XRAY ---
Indication: Low back pain. Comparison: None 3 view lumbar spine demonstrates 5 lumbar segments in normal alignment with minimal L4-L5 disc space narrowing, mild aortic calcifications, and mild diffuse scattered colonic fecal debris. No other bony, articular, or soft tissue abnormalities.
== END 2022-02-15 23:23 | disposition home or self-care (01) ==
LOC: ED 21:36
DX: M54.50 Low back pain, unspecified (principal); Z79.899 Other long term (current) drug therapy
CPT/HCPCS: 72100; 80307; 81015; 81025; 96372; 99283; J1885; A9270-GY

== ENCOUNTER 2022-06-30 17:27 | Emergency (ER) | payer MEDICAID ==
--- NOTE | 2022-06-30 18:09 | ERPHSYRPT ---
- History of Present Illness Source: patient, other () Exam Limitations: other ( very poor historian/Pt nonverbal) Patient Subjective Stated Complaint: PT states "For a week, my throat hurts and my belly hurts." Triage Nursing Assessment: Pt presented alert and oriented X 3, skin pwd. PT has speech problems, no apparnet respiratory distress. PT resting comfortably on the bed. Physician History: 46 yo WF w cough/coryza/ST/mild diarrhea/mild abdominal pain x 1 week. She denies fever/N/V/dysuria/hematuria/chest pain. Pt was placed on Zithromax per Dr. Valera. Timing/Duration: other (1 wk) Cough Quality/Degree: dry cough Possible Cause: occasional episodes Modifying Factors: Improves With: coughing Associated Symptoms: denies symptoms, sore throat Allergies/Adverse Reactions: Sulfa (Sulfonamide Antibiotics) [Sulfa(Sulfonamide Antibiotics)] Allergy (Verified 02/15/22 21:49) Home Medications: Trihexyphenidyl HCl 1 mg PO TID 01/03/16 [History] Clonazepam 0.5 mg [Klonopin 0.5 MG] 0.5 mg PO TID 03/07/16 [History] Gabapentin [Neurontin] 800 mg PO TID 03/07/16 [History] Tizanidine HCl 4 mg [Zanaflex 4 MG] 1 ea PO DAILY 09/22/21 [History] Nabumetone [Relafen] 500 mg PO BID 06/30/22 [History] Hx Tetanus, Diphtheria Vaccination/Date Given: Yes Hx Influenza Vaccination/Date Given: No Hx Pneumococcal Vaccination/Date Given: No Immunizations Up to Date: Yes Travel Risk - International Travel Have you traveled outside of the country in past 3 weeks: No - Coronavirus Screening Are you exhibiting any of the following symptoms?: No Close contact with a COVID-19 positive Pt in past 14-21 Days: No - Vaccine Status Have you recieved a Covid-19 vaccination: Yes 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[employer] - Vaccination Dates Date of 2cond Vaccination (if applicable): 2020 - Review of Systems Constitutional: No Symptoms, Malaise Eyes: No Symptoms Ears, Nose, & Throat: No Symptoms, Nose Congestion, Nose Discharge Respiratory: No Symptoms, Cough Cardiac: No Symptoms Abdominal/Gastrointestinal: No Symptoms, Abdominal Pain, Diarrhea Genitourinary Symptoms: No Symptoms Musculoskeletal: No Symptoms Skin: No Symptoms Neurological: No Symptoms Psychological: No Symptoms Endocrine: No Symptoms Hematologic/Lymphatic: No Symptoms Immunological/Allergic: No Symptoms - Past Medical History Pertinent Past Medical History: Yes Neurological History: No Pertinent History ENT History: No Pertinent History Cardiac History: No Pertinent History Respiratory History: No Pertinent History Endocrine Medical History: No Pertinent History Musculoskeletal History: Other GI Medical History: No Pertinent History History: No Pertinent History Psycho-Social History: Anxiety Female Reproductive Disorders: Abnormal Uterine Bleeding, Menstrual Problems, Other Other Medical History: DYSTONIA DISORDER, Patient is deaf - Past Surgical History Past Surgical History: Yes Neuro Surgical History: No Pertinent History Cardiac: No Pertinent History Respiratory: No Pertinent History Gastrointestinal: No Pertinent History Genitourinary: No Pertinent History Musculoskeletal: No Pertinent History Female Surgical History: Section, Tubal Ligation, Other Other Surgical History: COCHL. EAR IMPLANT - Social History Smoking Status: Never smoker How long have you smoked: 25 Exposure to second hand smoke: Yes Drug Use: none Patient Lives Alone: No - Female History Hx Last Menstrual Period: menopause Hx Now: No - Nursing Vital Signs Nursing Vital Signs: Initial Vital Signs Temperature 98.3 F 06/30/22 17:40 Pulse Rate 88 06/30/22 17:40 Respiratory Rate 18 06/30/22 17:40 Blood Pressure 131/77 06/30/22 17:40 O2 Sat by Pulse Oximetry 99 06/30/22 17:40 Pain Scale Pain Intensity 5 WNL - Physical Exam General Appearance: no apparent distress Eye Exam: PERRL/EOMI, eyes nml inspection Ears, Nose, Throat Exam: normal ENT inspection, pharynx normal, moist mucous membranes Neck Exam: normal inspection, non-tender, supple, full range of motion, No meningismus, No mass, No Brudzinski, No Kernig's Respiratory Exam: normal breath sounds, lungs clear, airway intact Cardiovascular Exam: regular rate/rhythm, normal heart sounds, normal peripheral pulses, capillary refill <2 sec, No murmur Gastrointestinal/Abdomen Exam: soft, normal bowel sounds, No tenderness Back Exam: normal inspection, normal range of motion, No CVA tenderness, No vertebral tenderness Extremity Exam: normal inspection, normal range of motion Neurologic Exam: alert, oriented x 3, cooperative, family intervention specialist II-XII nml as tested, normal mood/affect, sensation nml Skin Exam: normal color, warm, dry Lymphatic Exam: No adenopathy SpO2 Interpretation: normal SpO2: 99 O2 Delivery: Room Air - Course Nursing assessment & vital signs reviewed: Yes Lab/Rad Data: Laboratory Results 06/30/22 06/30/22 Range/Units 18:20 18:20 Influenza Type A Ag NEGATIVE (NEGATIVE) Influenza Type B Ag NEGATIVE (NEGATIVE) RSV (PCR) NEGATIVE (Negative) SARS-CoV-2 (PCR) NEGATIVE (NEGATIVE) Group A Strep Antibody NOT DETECTED (NEGATIVE) - Progress Progress Note: 06/30/22 22:01 Abdomen soft and NTTP on serial exams Counseled pt/family regarding: lab results, diagnosis, need for follow-up - Departure Departure Disposition: Home Clinical Impression: Diarrhea, Sore throat (viral) Condition: Stable Critical Care Time: No Referrals: ELZBIETA VALERA MD [Primary Care Provider] - Follow up/PCP as directed Instructions: Diarrhea and Travelers' Diarrhea, Adult (DC), Sore Throat, Adult (DC) Additional Instructions: Follow up with your family MD in 1-2 days Bentyl as needed for diarrhea/abdominal pain Return to ER for increasing abdominal pain, temperature greater than 100.5, worsening diarrhea, or worsening sore throat Prescriptions: Dicyclomine HCl 20 mg [Bentyl 20 mg] 10 mg PO QID PRN #14 tablet PRN Reason: Diarrhea
[2022-06-30 19:06] LABS: INFLUENZA A NEGATIVE (NEGATIVE); INFLUENZA B NEGATIVE (NEGATIVE); RESPIRATORY SYNCTIAL VIRUS NEGATIVE (Negative); SARS-CoV-2 Xpert Express NEGATIVE (NEGATIVE)
[2022-06-30 19:25] VITALS: BP 111/71; PULSE 82; O2SAT 99
== END 2022-06-30 19:35 | disposition home or self-care (01) ==
LOC: ED 17:27
DX: R19.7 Diarrhea, unspecified (principal); J02.9 Acute pharyngitis, unspecified; R05.1 Acute cough; R09.81 Nasal congestion; R10.9 Unspecified abdominal pain; Z79.899 Other long term (current) drug therapy
CPT/HCPCS: 0241U; 87651; 99282

== ENCOUNTER 2022-07-30 07:01 | Emergency (ER) | payer MEDICAID ==
--- NOTE | 2022-07-30 07:06 | ERPHSYRPT ---
- History of Present Illness Time Seen by Provider: 07/30/22 07:11 Exam Limitations: no limitations Physician History: Patient is a 46-year-old female presents to our emergency department via EMS for evaluation of altered mental status. Patient states she has been experiencing auditory and visual hallucinations. Symptoms started early this morning. Upon EMS arrival they observe patient was making irrational comments. Patient denies homicidal suicidal ideation. Patient acknowledges that she is experiencing unusual hallucinations and expresses that she is very concerned. Patient recently had several teeth extracted. However she is currently not on any new medications. It is unclear whether or not patient is compliant with her home medication regimen. However patient is cooperative at this time. She denies pain. No nausea vomiting. No diaphoresis. No rash. Symptoms are mild to moderate in intensity. No specific worsening improving factors. Patient voices no other complaints or concerns at this time. Portions of this note were created with voice recognition technology. There may be grammatical, spelling, punctuation or sound alike errors Timing/Duration: today Severity: moderate Modifying Factors: Improves With: nothing Associated Symptoms: denies symptoms Allergies/Adverse Reactions: Sulfa (Sulfonamide Antibiotics) [Sulfa(Sulfonamide Antibiotics)] Allergy (Verified 02/15/22 21:49) Home Medications: Trihexyphenidyl HCl 1 mg PO TID 01/03/16 [History] Clonazepam 0.5 mg [Klonopin 0.5 MG] 1 mg PO BID 03/07/16 [History] Gabapentin [Neurontin] 800 mg PO TID 03/07/16 [History] Tizanidine HCl 4 mg [Zanaflex 4 MG] 1 ea PO DAILY 09/22/21 [History] Nabumetone [Relafen] 500 mg PO BID 06/30/22 [History] Ibuprofen 800 mg PO Q8HPRN PRN 07/30/22 [History] Hx Tetanus, Diphtheria Vaccination/Date Given: Yes Hx Influenza Vaccination/Date Given: No Hx Pneumococcal Vaccination/Date Given: No Travel Risk - Vaccine Status Have you recieved a Covid-19 vaccination: Yes 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[employer] - Vaccination Dates Date of 2cond Vaccination (if applicable): 2020 - Review of Systems Constitutional: No Symptoms, No Fever, No Chills Eyes: No Symptoms Ears, Nose, & Throat: No Symptoms Respiratory: No Symptoms, No Cough, No Dyspnea Cardiac: No Symptoms, No Chest Pain, No Edema, No Syncope Abdominal/Gastrointestinal: No Symptoms, No Abdominal Pain, No Nausea, No Vomiting, No Diarrhea Genitourinary Symptoms: No Symptoms, No Dysuria Musculoskeletal: No Symptoms, No Back Pain, No Neck Pain Skin: No Symptoms, No Rash Neurological: No Symptoms, No Dizziness, No Focal Weakness, No Sensory Changes Psychological: No Symptoms Endocrine: No Symptoms Hematologic/Lymphatic: No Symptoms Immunological/Allergic: No Symptoms All Other Systems: Reviewed and Negative - Past Medical History Pertinent Past Medical History: Yes Neurological History: No Pertinent History ENT History: No Pertinent History Cardiac History: No Pertinent History Respiratory History: No Pertinent History Endocrine Medical History: No Pertinent History Musculoskeletal History: Other GI Medical History: No Pertinent History History: No Pertinent History Psycho-Social History: Anxiety Female Reproductive Disorders: Abnormal Uterine Bleeding, Menstrual Problems, Other Other Medical History: DYSTONIA DISORDER, Patient is deaf - Past Surgical History Past Surgical History: Yes Neuro Surgical History: No Pertinent History Cardiac: No Pertinent History Respiratory: No Pertinent History Gastrointestinal: No Pertinent History Genitourinary: No Pertinent History Musculoskeletal: No Pertinent History Female Surgical History: Section, Tubal Ligation, Other Other Surgical History: COCHL. EAR IMPLANT - Social History Smoking Status: Never smoker How long have you smoked: 25 Exposure to second hand smoke: Yes Drug Use: none Patient Lives Alone: No - Nursing Vital Signs Nursing Vital Signs: Initial Vital Signs Temperature 99.1 F 07/30/22 07:03 Pulse Rate 90 07/30/22 07:03 Respiratory Rate 20 07/30/22 07:03 Blood Pressure 124/74 07/30/22 07:03 O2 Sat by Pulse Oximetry 99 07/30/22 07:03 Pain Scale Pain Intensity 0 - Physical Exam General Appearance: no apparent distress, alert Eye Exam: PERRL/EOMI, eyes nml inspection Ears, Nose, Throat Exam: normal ENT inspection, TMs normal, pharynx normal, moist mucous membranes, other (Edentulous. Patient just finished a round of clindamycin for gum infection) Neck Exam: normal inspection, non-tender, supple, full range of motion Respiratory Exam: normal breath sounds, lungs clear, airway intact, No respiratory distress Cardiovascular Exam: regular rate/rhythm, normal heart sounds, normal peripheral pulses Gastrointestinal/Abdomen Exam: soft, normal bowel sounds, No tenderness, No mass Back Exam: normal inspection, normal range of motion, No CVA tenderness, No vertebral tenderness Extremity Exam: normal inspection, normal range of motion, pelvis stable Neurologic Exam: alert, oriented x 3, cooperative, normal mood/affect, nml cerebellar function, nml station & gait, sensation nml, No motor deficits Skin Exam: normal color, warm, dry, No rash Lymphatic Exam: No adenopathy SpO2 Interpretation: normal SpO2: 98 O2 Delivery: Room Air - Course Nursing assessment & vital signs reviewed: Yes - CT Exams Head CT Interpretation: Tele-radiologist Report (Grossly negative CT head without contrast. Limited due to beam artifact from cochlear implant) Ordered Tests: Active Orders 24 hr Category Date Time Status Paramedic Supervisor STAT Care 07/30/22 07:07 Active EKG-ER Only STAT Care 07/30/22 07:06 Active Pulse Oximetry (ED) STAT Care 07/30/22 07:06 Active HEAD WITHOUT CONTRAST [CT] Stat Exams 07/30/22 07:14 Completed CBC W DIFF Stat Lab 07/30/22 07:19 Completed CMP Stat Lab 07/30/22 07:19 Completed ETHYL ALCOHOL Stat Lab 07/30/22 07:19 Completed HCG,QUALITATIVE URINE Stat Lab 07/30/22 07:32 Completed SALICYLATE Stat Lab 07/30/22 07:19 Completed TROPONIN Q4H Lab 07/30/22 07:19 Completed TROPONIN Q4H Lab 07/30/22 10:48 Completed TROPONIN Q4H Lab 07/30/22 15:15 Ordered UA W/RFX CULTURE Stat Lab 07/30/22 07:55 Completed Urine Triage Profile Stat Lab 07/30/22 07:32 Completed Medication Summary Generic Name Dose Route Start Last Admin Trade Name Freq PRN Reason Stop Dose Admin Sodium Chloride 1,000 mls @ 100 mls/hr 07/30/22 07:15 07/30/22 11:33 Sodium Chloride 0.9% 1000 Ml IV 08/29/22 07:14 Not Given .Q10H NATHALY Discontinued Medications Generic Name Dose Route Start Last Admin Trade Name Freq PRN Reason Stop Dose Admin Clonazepam 1 mg 07/30/22 07:42 07/30/22 08:00 Clonazepam 0.5 Mg Tablet PO 07/30/22 07:43 1 mg ONCE STA Administration Gabapentin 800 mg 07/30/22 07:40 07/30/22 08:00 Gabapentin 400 Mg Capsule PO 07/30/22 07:41 800 mg STAT ONE Administration Ibuprofen 800 mg 07/30/22 07:40 07/30/22 07:59 Ibuprofen 400 Mg Tablet PO 07/30/22 07:41 800 mg STAT ONE Administration Ibuprofen Confirm 07/30/22 07:44 Ibuprofen 400 Mg Tablet Administered 07/30/22 07:45 Dose 800 mg .ROUTE .STK-MED ONE Lab/Rad Data: Laboratory Result Diagrams 07/30/22 07:19 07/30/22 07:19 Laboratory Results 07/30/22 07/30/22 07/30/22 Range/Units 10:48 07:55 07:32 WBC (4.0-10.5) x10^3/uL RBC (4.1-5.4) x10^6/uL Hgb (12.0-16.0) g/dL Hct (35-47) % MCV (78-100) fL MCH (26-32) pg MCHC (32-36) g/dL RDW (11.5-14.0) % Plt Count (150-450) x10^3/uL MPV (7.5-11.0) fL Gran % (36.0-66.0) % Immature Gran % (Auto) (0.00-0.4) % Nucleat RBC Rel Count (0.00-0.1) % Eos # (Auto) (0-0.5) x10^3/uL Immature Gran # (Auto) (0.00-0.03) x10^3u/L Absolute Lymphs (auto) (1.0-4.6) x10^3/uL Absolute Monos (auto) (0.0-1.3) x10^3/uL Absolute Nucleated RBC (0.00-0.01) x10^3u/L Lymphocytes % (24.0-44.0) % Monocytes % (0.0-12.0) % Eosinophils % (0.00-5.0) % Basophils % (0.0-0.4) % Absolute Granulocytes (1.4-6.9) x10^3/uL Basophils # (0-0.4) x10^3/uL Sodium (137-145) mmol/L Potassium (3.5-5.1) mmol/L Chloride (98-107) mmol/L Carbon Dioxide (22-30) mmol/L Anion Gap (5-15) MEQ/L BUN (7-17) mg/dL Creatinine (0.52-1.04) mg/dL Estimated GFR ML/MIN Glucose (74-106) mg/dL Calcium (8.4-10.2) mg/dL Total Bilirubin (0.2-1.3) mg/dL AST (14-36) U/L ALT (0-35) U/L Alkaline Phosphatase (38-126) U/L Troponin I < 0.012 (0.000-0.034) ng/mL Serum Total Protein (6.3-8.2) g/dL Albumin (3.5-5.0) g/dL Urinalys Dipstick Clnc MAIN LAB Urine Color CHARLIE (YELLOW) Urine Appearance SLIGHTLY CLOUDY A (CLEAR) Urine pH 5.5 (5-6) Ur Specific [place] >=1.030 A (1.005-1.025) POC Urine Protein Conf 30 A (Negative) Urine Ketones NEGATIVE (NEGATIVE) Urine Nitrite NEGATIVE (NEGATIVE) Urine Bilirubin NEGATIVE (NEGATIVE) Urine Urobilinogen 0.2 (0-1) mg/dL Urine Leukocytes NEGATIVE (NEGATIVE) Urine WBC (Auto) 0-2 (0-5) /HPF Urine RBC (Auto) 0-2 (0-2) /HPF U Hyaline Cast (Auto) 3-5 A (0-2) /LPF U Epithel Cells (Auto) RARE (FEW) /HPF Urine Bacteria (Auto) RARE (NEGATIVE) /HPF Urine RBC NEGATIVE (0-5) Ethan/ul Urine Mucus (Auto) SLIGHT A (NEGATIVE) /HPF Ur Culture Indicated? NO Urine Glucose NEGATIVE (NEGATIVE) mg/dL Urine HCG, Qual NEGATIVE (Negative) Salicylates (2-20) mg/dL Urine Opiates Level (NEGATIVE) Ur Methadone (NEGATIVE) Urine Barbiturates (NEGATIVE) Ur Phencyclidine (PCP) (NEGATIVE) Urine Amphetamine (NEGATIVE) U Benzodiazepine Level (NEGATIVE) Urine Cocaine (NEGATIVE) Urine Marijuana (THC) (NEGATIVE) Ethyl Alcohol (0-10) mg/dL 07/30/22 07/30/22 07/30/22 Range/Units 07:32 07:19 07:19 WBC (4.0-10.5) x10^3/uL RBC (4.1-5.4) x10^6/uL Hgb (12.0-16.0) g/dL Hct (35-47) % MCV (78-100) fL MCH (26-32) pg MCHC (32-36) g/dL RDW (11.5-14.0) % Plt Count (150-450) x10^3/uL MPV (7.5-11.0) fL Gran % (36.0-66.0) % Immature Gran % (Auto) (0.00-0.4) % Nucleat RBC Rel Count (0.00-0.1) % Eos # (Auto) (0-0.5) x10^3/uL Immature Gran # (Auto) (0.00-0.03) x10^3u/L Absolute Lymphs (auto) (1.0-4.6) x10^3/uL Absolute Monos (auto) (0.0-1.3) x10^3/uL Absolute Nucleated RBC (0.00-0.01) x10^3u/L Lymphocytes % (24.0-44.0) % Monocytes % (0.0-12.0) % Eosinophils % (0.00-5.0) % Basophils % (0.0-0.4) % Absolute Granulocytes (1.4-6.9) x10^3/uL Basophils # (0-0.4) x10^3/uL Sodium (137-145) mmol/L Potassium (3.5-5.1) mmol/L Chloride (98-107) mmol/L Carbon Dioxide (22-30) mmol/L Anion Gap (5-15) MEQ/L BUN (7-17) mg/dL Creatinine (0.52-1.04) mg/dL Estimated GFR ML/MIN Glucose (74-106) mg/dL Calcium (8.4-10.2) mg/dL Total Bilirubin (0.2-1.3) mg/dL AST (14-36) U/L ALT (0-35) U/L Alkaline Phosphatase (38-126) U/L Troponin I < 0.012 (0.000-0.034) ng/mL Serum Total Protein (6.3-8.2) g/dL Albumin (3.5-5.0) g/dL Urinalys Dipstick Clnc Urine Color (YELLOW) Urine Appearance (CLEAR) Urine pH (5-6) Ur Specific [place] (1.005-1.025) POC Urine Protein Conf (Negative) Urine Ketones (NEGATIVE) Urine Nitrite (NEGATIVE) Urine Bilirubin (NEGATIVE) Urine Urobilinogen (0-1) mg/dL Urine Leukocytes (NEGATIVE) Urine WBC (Auto) (0-5) /HPF Urine RBC (Auto) (0-2) /HPF U Hyaline Cast (Auto) (0-2) /LPF U Epithel Cells (Auto) (FEW) /HPF Urine Bacteria (Auto) (NEGATIVE) /HPF Urine RBC (0-5) Ethan/ul Urine Mucus (Auto) (NEGATIVE) /HPF Ur Culture Indicated? Urine Glucose (NEGATIVE) mg/dL Urine HCG, Qual (Negative) Salicylates < 1.0 L (2-20) mg/dL Urine Opiates Level NEGATIVE (NEGATIVE) Ur Methadone NEGATIVE (NEGATIVE) Urine Barbiturates NEGATIVE (NEGATIVE) Ur Phencyclidine (PCP) NEGATIVE (NEGATIVE) Urine Amphetamine NEGATIVE (NEGATIVE) U Benzodiazepine Level NEGATIVE (NEGATIVE) Urine Cocaine NEGATIVE (NEGATIVE) Urine Marijuana (THC) NEGATIVE (NEGATIVE) Ethyl Alcohol (0-10) mg/dL 07/30/22 07/30/22 Range/Units 07:19 07:19 WBC 10.6 H (4.0-10.5) x10^3/uL RBC 3.73 L (4.1-5.4) x10^6/uL Hgb 11.3 L (12.0-16.0) g/dL Hct 34.0 L (35-47) % MCV 91.2 (78-100) fL MCH 30.3 (26-32) pg MCHC 33.2 (32-36) g/dL RDW 13.9 (11.5-14.0) % Plt Count 298 (150-450) x10^3/uL MPV 11.1 H (7.5-11.0) fL Gran % 65.7 (36.0-66.0) % Immature Gran % (Auto) 0.4 (0.00-0.4) % Nucleat RBC Rel Count 0.0 (0.00-0.1) % Eos # (Auto) 0.41 (0-0.5) x10^3/uL Immature Gran # (Auto) 0.04 H (0.00-0.03) x10^3u/L Absolute Lymphs (auto) 2.26 (1.0-4.6) x10^3/uL Absolute Monos (auto) 0.79 (0.0-1.3) x10^3/uL Absolute Nucleated RBC 0.00 (0.00-0.01) x10^3u/L Lymphocytes % 21.4 L (24.0-44.0) % Monocytes % 7.5 (0.0-12.0) % Eosinophils % 3.9 (0.00-5.0) % Basophils % 1.1 (0.0-0.4) % Absolute Granulocytes 6.93 H (1.4-6.9) x10^3/uL Basophils # 0.12 (0-0.4) x10^3/uL Sodium 140 (137-145) mmol/L Potassium 3.6 (3.5-5.1) mmol/L Chloride 107 (98-107) mmol/L Carbon Dioxide 22 (22-30) mmol/L Anion Gap 14.7 (5-15) MEQ/L BUN 16 (7-17) mg/dL Creatinine 0.67 (0.52-1.04) mg/dL Estimated GFR > 60.0 ML/MIN Glucose 106 (74-106) mg/dL Calcium 9.3 (8.4-10.2) mg/dL Total Bilirubin 0.80 (0.2-1.3) mg/dL AST 28 (14-36) U/L ALT 18 (0-35) U/L Alkaline Phosphatase 81 (38-126) U/L Troponin I (0.000-0.034) ng/mL Serum Total Protein 7.7 (6.3-8.2) g/dL Albumin 4.5 (3.5-5.0) g/dL Urinalys Dipstick Clnc Urine Color (YELLOW) Urine Appearance (CLEAR) Urine pH (5-6) Ur Specific [place] (1.005-1.025) POC Urine Protein Conf (Negative) Urine Ketones (NEGATIVE) Urine Nitrite (NEGATIVE) Urine Bilirubin (NEGATIVE) Urine Urobilinogen (0-1) mg/dL Urine Leukocytes (NEGATIVE) Urine WBC (Auto) (0-5) /HPF Urine RBC (Auto) (0-2) /HPF U Hyaline Cast (Auto) (0-2) /LPF U Epithel Cells (Auto) (FEW) /HPF Urine Bacteria (Auto) (NEGATIVE) /HPF Urine RBC (0-5) Ethan/ul Urine Mucus (Auto) (NEGATIVE) /HPF Ur Culture Indicated? Urine Glucose (NEGATIVE) mg/dL Urine HCG, Qual (Negative) Salicylates (2-20) mg/dL Urine Opiates Level (NEGATIVE) Ur Methadone (NEGATIVE) Urine Barbiturates (NEGATIVE) Ur Phencyclidine (PCP) (NEGATIVE) Urine Amphetamine (NEGATIVE) U Benzodiazepine Level (NEGATIVE) Urine Cocaine (NEGATIVE) Urine Marijuana (THC) (NEGATIVE) Ethyl Alcohol < 10 (0-10) mg/dL - Progress Progress: improved Progress Note: Work-up essentially nonremarkable. CT head negative. Toxicology screen negative. Laboratory work-up essentially negative. Patient has not taken her prescribed home medications in several days. We contacted patient's primary care provider who states he has called in all of patient's home meds. All she has to do is pick them up. Patient was evaluated by [facility]. They recommend patient be discharged home. Patient denies homicidal suicidal ideation. Patient agrees to pickup driver her home meds and resume her home meds as recommended per her primary care doctor. She may follow-up with her primary care doctor tomorrow for reevaluation. Patient eager to be discharged. There is no indication for further work-up at this time. Will discharge home. 07/30/22 12:48 Patient agrees to follow-up with her primary care doctor within 48 hours for evaluation. Portions of this note were created with voice recognition technology. There may be grammatical, spelling, punctuation or sound alike errors Discussed with Dr.: Pancho Will see patient in: office Counseled pt/family regarding: lab results, diagnosis, need for follow-up, rad results - Departure Departure Disposition: Home Clinical Impression: Hallucination, Noncompliance with medication regimen, Normocytic anemia Condition: Stable Critical Care Time: No Referrals: ELZBIETA VALERA MD [Primary Care Provider] - Follow up/PCP as directed Additional Instructions: Discharge/Care Plan NAOMIERICKSON was seen on 07/30/22 in the Emergency Room. The patient was counseled regarding Diagnosis,Lab results, Imaging studies, need for follow up and when to return to the Emergency Room. Prescriptions given: Discharge Note I have spoken with the patient and/or caregivers. I have explained the patient's condition, diagnosis and treatment plan based on the information available to me at this time. I have answered the patient's and/or caregiver's questions and addressed any concerns. The patient and/or caregivers have as good understanding of the patient's diagnosis, condition and treatment plan as can be expected at this point. The vital signs have been stable. The patient's condition is stable and appropriate for discharge from the emergency department. The patient will pursue further outpatient evaluation with the primary care physician or other designated or consulting physician as outlined in the discharge instructions. The patient and/or caregivers are agreeable to this plan of care and follow-up instructions have been explained in detail. The patient and/or caregivers have received these instruction. The patient/and or caregivers are aware that any significant change in condition or worsening of symptoms should prompt an immediate return to this or the closest emergency department or call 911.
[2022-07-30] MEDS ORDERED: Sodium Chloride 0.9% 1000 ML 1,000 ML IV SCH (07:15)
[2022-07-30 07:40] LABS: Absolute Neutrophil Ct (ANC) 6.93 x10^3/uL (1.4-6.9); Basophil (Absolute #) 0.12 x10^3/uL (0-0.4); Eosinophil % 3.9 % (0.00-5.0); Eosinophil (Absolute #) 0.41 x10^3/uL (0-0.5); Hemoglobin 11.3 g/dL (12.0-16.0); Lymphocyte (Absolute #) 2.26 x10^3/uL (1.0-4.6); Lymphocytes % 21.4 % (24.0-44.0); Mean Cell Volume 91.2 fL (78-100); Mean Corpuscular Hemoglobin 30.3 pg (26-32); Mean Corpuscular Hgb Concent. 33.2 g/dL (32-36); Mean Platelet Volume 11.1 fL (7.5-11.0); Monocyte (Absolute #) 0.79 x10^3/uL (0.0-1.3); Monocytes % 7.5 % (0.0-12.0); Neutrophil % 65.7 % (36.0-66.0); Platelet Count 298 x10^3/uL (150-450); Red Blood Count 3.73 x10^6/uL (4.1-5.4); Red Cell Distribution Width 13.9 % (11.5-14.0); White Blood Count 10.6 x10^3/uL (4.0-10.5)
[2022-07-30] MEDS ORDERED: Neurontin PO ONE (07:40)
[2022-07-30] MEDS ORDERED: MOTRIN 400 MG PO ONE (07:40)
[2022-07-30] MEDS ORDERED: clonazePAM PO STA (07:42)
[2022-07-30] MEDS ORDERED: MOTRIN 400 MG ONE (07:44)
[2022-07-30 07:56] LABS: Appearance SLIGHTLY CLOUDY (CLEAR); Bilirubin NEGATIVE (NEGATIVE); Dipstick done @ ? MAIN LAB; Glucose NEGATIVE (NEGATIVE); Ketones NEGATIVE (NEGATIVE); Nitrite NEGATIVE (NEGATIVE); Ph 5.5 (5-6); Protein,Urine Dip 30 (Negative); RBC NEGATIVE Ery/ul (0-5); Specific Gravity >=1.030 (1.005-1.025); Urobilinogen 0.2 mg/dL (0-1)
[2022-07-30 08:02] LABS: Bacteria RARE /HPF (NEGATIVE); Epithelial Cells RARE /HPF (FEW); Mucus SLIGHT /HPF (NEGATIVE); RBC 0-2 /HPF (0-2); WBC 0-2 /HPF (0-5)
[2022-07-30 08:03] LABS: ALBUMIN 4.5 g/dL (3.5-5.0); ALKALINE PHOSPHATASE 81 U/L (38-126); ANION GAP 14.7 MEQ/L (5-15); BLOOD UREA NITROGEN 16 mg/dL (7-17); CHLORIDE 107 mmol/L (98-107); Calcium 9.3 mg/dL (8.4-10.2); Carbon Dioxide 22 mmol/L (22-30); Creatinine 1 0.67 mg/dL (0.52-1.04); EST GLOMERULAR FILTRATION RATE > 60.0 ML/MIN; ETHYL ALCOHOL < 10 mg/dL (0-10); Glucose 106 mg/dL (74-106); Potassium 3.6 mmol/L (3.5-5.1); SGOT/AST 28 U/L (14-36); SGPT/ALT 18 U/L (0-35); SODIUM 140 mmol/L (137-145); Total Protein 7.7 g/dL (6.3-8.2)
[2022-07-30 08:04] LABS: Amphetamine,Urine NEGATIVE (NEGATIVE); Barbiturate,Urine NEGATIVE (NEGATIVE); Benzodiazepine,Urine NEGATIVE (NEGATIVE); Cocaine,Urine NEGATIVE (NEGATIVE); Methadone,Urine NEGATIVE (NEGATIVE); Opiate,Urine NEGATIVE (NEGATIVE); PCP,Urine NEGATIVE (NEGATIVE); THC,Urine NEGATIVE (NEGATIVE)
[2022-07-30 08:05] LABS: Urine Cultured Indicated? NO
--- NOTE | 2022-07-30 08:39 | XRAY ---
Indication: Hallucinations. Multiple contiguous axial images obtained through the head without contrast. Comparison: March 04, 2016 Again extreme beam artifact from left cochlear implant and right hearing aid limits exam. No gross acute intracranial hemorrhage, abnormal extra-axial fluid collection, or mass effect. Fourth ventricle is midline without hydrocephalus. Bony calvarium intact. Visualized paranasal sinuses and mastoid air cells are clear. Impression: Limited exam due to beam artifact. Otherwise grossly negative CT head without contrast exam.
[2022-07-30 11:34] VITALS: O2SAT 98
[2022-07-30 12:40] VITALS: BP 122/70; PULSE 94
== END 2022-07-30 13:01 | disposition home or self-care (01) ==
LOC: ED 07:01
DX: R44.1 Visual hallucinations (principal); R44.0 Auditory hallucinations; Z91.14 Patient's other noncompliance with medication regimen; D64.9 Anemia, unspecified; Z79.899 Other long term (current) drug therapy
CPT/HCPCS: 36415; 70450; 80053; 80307; 81015; 81025; 84484; 85025; 93005; 93041; 94760; 99284; A9270-GY; G0480

== ENCOUNTER 2023-02-10 12:12 | Emergency (ER) | payer MEDICAID, OTHER ==
[2023-02-10] MEDS ORDERED: MORPHINE SULFATE 4 MG INJ IM ONE (12:59)
[2023-02-10] MEDS ORDERED: Rocephin 1000 MG INJ IM ONE (12:59)
[2023-02-10] MEDS ORDERED: TORAdol 30 mg Injection IM ONE (13:03)
[2023-02-10] MEDS ORDERED: DELTASONE 10 MG PO SCH (13:15)
[2023-02-10] MEDS ORDERED: TORAdol 30 mg Injection ONE (13:18)
[2023-02-10] MEDS ORDERED: Rocephin 1000 MG INJ ONE (13:18)
[2023-02-10] MEDS ORDERED: XYLOCAINE 1% HCL 20 ML MDV ONE (13:19)
[2023-02-10] MEDS ORDERED: DELTASONE 20 MG ONE (13:19)
[2023-02-10 13:21] VITALS: O2SAT 98
--- NOTE | 2023-02-10 13:35 | ERPHSYRPT ---
- History of Present Illness Time Seen by Provider: 02/10/23 12:39 Source: patient Exam Limitations: no limitations Patient Subjective Stated Complaint: pt here for right mouth pain, she has dental work done recently . she aslo co pain to left rib area after a fall 2 days ago Triage Nursing Assessment: alert walked in, resp easy, skin w/d/p, pt has white area and swelling to top of right side of mouth, no bruising to left rib area Physician History: 47-year-old female presented in the ER with chief complaint of right upper jaw pain and swelling gradually worsening for the last 3 weeks after she had a dental work-up done. Moderate to severe sharp pain making it difficult to swallow. No fever or chills reported. Patient also reports getting stumbled and fell 2 days ago hitting her left lower ribs against the bathtub. No head injury. No loss of consciousness. No difficulty breathing. Severity: moderate ENT Location: dental Prearrival Treatment: over the counter meds Allergies/Adverse Reactions: Sulfa (Sulfonamide Antibiotics) [Sulfa(Sulfonamide Antibiotics)] Allergy (Verified 02/10/23 12:14) Home Medications: Trihexyphenidyl HCl 1 mg PO TID 01/03/16 [History] Clonazepam 0.5 mg [Klonopin 0.5 MG] 1 mg PO BID 03/07/16 [History] Gabapentin [Neurontin] 800 mg PO TID 03/07/16 [History] Tizanidine HCl 4 mg [Zanaflex 4 MG] 1 ea PO DAILY 09/22/21 [History] Nabumetone [Relafen] 500 mg PO BID 06/30/22 [History] Ibuprofen 800 mg PO Q8HPRN PRN 07/30/22 [History] Hx Tetanus, Diphtheria Vaccination/Date Given: Yes Hx Influenza Vaccination/Date Given: No Hx Pneumococcal Vaccination/Date Given: No Immunizations Up to Date: Yes Travel Risk - International Travel Have you traveled outside of the country in past 3 weeks: No - Coronavirus Screening Are you exhibiting any of the following symptoms?: No Close contact with a COVID-19 positive Pt in past 14-21 Days: No - Vaccine Status Have you recieved a Covid-19 vaccination: Yes Girl Friday: [employer] - Vaccination Dates Date of 2cond Vaccination (if applicable): 2020 - Review of Systems Constitutional: No Symptoms Eyes: No Symptoms Ears, Nose, & Throat: Mouth Swelling Respiratory: No Symptoms Cardiac: Chest Pain (Chest wall) Abdominal/Gastrointestinal: No Symptoms Genitourinary Symptoms: No Symptoms Musculoskeletal: Injury Skin: No Symptoms Endocrine: No Symptoms - Past Medical History Pertinent Past Medical History: Yes Neurological History: No Pertinent History ENT History: No Pertinent History Cardiac History: No Pertinent History Respiratory History: No Pertinent History Endocrine Medical History: No Pertinent History Musculoskeletal History: Other GI Medical History: No Pertinent History History: No Pertinent History Psycho-Social History: Anxiety Female Reproductive Disorders: Abnormal Uterine Bleeding, Menstrual Problems, Other Other Medical History: DYSTONIA DISORDER, Patient is deaf - Past Surgical History Past Surgical History: Yes Neuro Surgical History: No Pertinent History Cardiac: No Pertinent History Respiratory: No Pertinent History Gastrointestinal: No Pertinent History Genitourinary: No Pertinent History Musculoskeletal: No Pertinent History Female Surgical History: Section, Tubal Ligation, Other Other Surgical History: COCHL. EAR IMPLANT - Social History Smoking Status: Never smoker How long have you smoked: 25 Exposure to second hand smoke: Yes Drug Use: none Patient Lives Alone: No - Female History Hx Last Menstrual Period: post Hx Now: No - Nursing Vital Signs Nursing Vital Signs: Initial Vital Signs Temperature 97.2 F 02/10/23 12:13 Pulse Rate 78 02/10/23 12:13 Respiratory Rate 16 02/10/23 12:13 Blood Pressure 122/71 02/10/23 12:13 O2 Sat by Pulse Oximetry 97 02/10/23 12:13 Pain Scale Pain Intensity 10 - Physical Exam General Appearance: no apparent distress, alert Eye Exam: bilateral eye: normal inspection, PERRL, EOMI Ear Exam: bilateral ear: auricle normal, canal normal, TM normal Nasal Exam: normal inspection Throat Exam: normal, pharynx normal, dental tenderness (Right upper partially broken/erupting tooth with swelling around gingiva. No fluctuation. Tenderness to touch.) Neck Exam: normal inspection, non-tender, supple, full range of motion Cardiovascular/Respiratory Exam: normal breath sounds, regular rate/rhythm, No chest non-tender (Mild tenderness left lower anterior ribs. No obvious swelling, no crepitus, no paradoxical chest wall movements.) Abdominal Exam: non-tender, soft, no organomegaly, no hernia, guarding, No tenderness Neurologic Exam: alert, oriented x 3, video engineer II-XII nml as tested Skin Exam: normal color SpO2 Interpretation: normal SpO2: 98 O2 Delivery: Room Air Ordered Tests: Active Orders 24 hr Category Date Time Status RIBS UNILATERAL Stat Exams 02/10/23 13:35 Taken Medication Summary Generic Name Dose Route Start Last Admin Trade Name Jackie PRN Reason Stop Dose Admin Prednisone 50 mg 02/10/23 13:15 02/10/23 13:33 Prednisone 10 Mg Tablet PO 03/12/23 13:14 50 mg 1XONLY NATHALY Administration Discontinued Medications Generic Name Dose Route Start Last Admin Trade Name Freq PRN Reason Stop Dose Admin Ceftriaxone Sodium 1,000 mg 02/10/23 12:59 02/10/23 13:26 Ceftriaxone Sodium 1000 Mg Inj Vial IM 02/10/23 13:00 1,000 mg STAT ONE Administration Ceftriaxone Sodium Confirm 02/10/23 13:18 Ceftriaxone Sodium 1000 Mg Inj Vial Administered 02/10/23 13:19 Dose 1,000 mg .ROUTE .STK-MED ONE Ketorolac Tromethamine 30 mg 02/10/23 13:03 02/10/23 13:24 Ketorolac Tromethamine 30 Mg/Ml Inj IM 02/10/23 13:04 30 mg STAT ONE Administration Ketorolac Tromethamine Confirm 02/10/23 13:18 Ketorolac Tromethamine 30 Mg/Ml Inj Administered 02/10/23 13:19 Dose 30 mg .ROUTE .STK-MED ONE Lidocaine HCl Confirm 02/10/23 13:19 Lidocaine Hcl 1% 20 Ml Mdv 20 Ml Ml Administered 02/10/23 13:20 Dose 3 ml .ROUTE .STK-MED ONE Morphine Sulfate 4 mg 02/10/23 12:59 02/10/23 13:15 Morphine Sulfate 4 Mg/Ml Injection IM 02/10/23 13:00 Not Given STAT ONE Prednisone Confirm 02/10/23 13:19 Prednisone 20 Mg Tablet Administered 02/10/23 13:20 Dose 60 mg .ROUTE .STK-MED ONE - Progress Progress: improved Progress Note: 02/10/23 14:01 47-year-old female presented in the ER with chief complaint of right upper jaw pain and swelling gradually worsening for the last 3 weeks after she had a dental work-up done. Moderate to severe sharp pain making it difficult to swallow. No fever or chills reported. Patient also reports getting stumbled and fell 2 days ago hitting her left lower ribs against the bathtub. No head injury. No loss of consciousness. No difficulty breathing. She has gingival swelling with no obvious abscess at present. She is given symptomatic treatment for pain and a dose of Rocephin. Patient x-ray ribs negative for obvious rib fracture, pneumothorax reviewed by me, official report is pending. I would start her on Augmentin to go home along with NSAIDs and outpatient primary care/dental follow-up recommended. Discussed signs symptoms of worsening needing return to ER which she seems understanding Counseled pt/family regarding: diagnosis, need for follow-up, rad results Medical Desision Making - Diagnostic Testing Diagnostic test were ordered, analyzed, and reviewed by me: Yes Radiological Interpretation: Interpreted by me, Reviewed by me - Risk of complications The pt has a mod risk of morbidity or mortality based on: Need for prescription drug management - Departure Departure Disposition: Home Clinical Impression: Dental infection, Chest wall contusion Condition: Stable Critical Care Time: No Referrals: ELZBIETA VALERA MD [Primary Care Provider] - Follow up with PCP 2 days Instructions: Tooth Abscess (DC) Additional Instructions: Take Tylenol/ibuprofen as needed. Do deep breathing exercises. Follow-up with primary care and dentist for reevaluation in the next 1 to 2 days. Return to ER for worsening pain in the gums/swelling/fever chills etc. Prescriptions: Tramadol HCl 50 mg [Ultram 50 mg] 50 mg PO Q6HPRN PRN 3 Days #10 tablet PRN Reason: Pain Amox Tr/Potass Clav. 875 mg [Augmentin 875-125 Tablet] 875 mg PO BID #14 tablet
[2023-02-10 14:24] VITALS: BP 104/55; PULSE 61
--- NOTE | 2023-02-10 18:57 | XRAY ---
Indication: Pain following fall. Comparison: None 2 view left ribs demonstrate mild acromioclavicular degenerative changes. No other bony, articular, or soft tissue abnormalities.
== END 2023-02-10 14:36 | disposition home or self-care (01) ==
LOC: ED 12:12
DX: K04.7 Periapical abscess without sinus (principal); S20.212A Contusion of left front wall of thorax, initial encounter; W01.190A Fall on same level from slipping, tripping and stumbling with subsequent striking against furniture, initial encounter; Y92.002 Bathroom of unspecified non-institutional (private) residence as the place of occurrence of the external cause; R68.84 Jaw pain; Z79.891 Long term (current) use of opiate analgesic; Z79.899 Other long term (current) drug therapy
CPT/HCPCS: 71100; 96372; 99283; J0696; J1885; A9270-GY

== ENCOUNTER 2023-05-23 15:38 | Emergency (ER) | payer OTHER ==
[2023-05-23 16:08] VITALS: TEMP 97.7; O2SAT 98
[2023-05-23] MEDS ORDERED: Adacel Vial IM ONE ×2 (16:17→16:21)
[2023-05-23] MEDS ORDERED: KEFLEX 500 MG PO ONE (16:17)
[2023-05-23] MEDS ORDERED: TORAdol 30 mg Injection IM ONE (16:17)
[2023-05-23] MEDS ORDERED: TORAdol 30 mg Injection ONE (16:21)
[2023-05-23] MEDS ORDERED: KEFLEX 500 MG ONE (16:21)
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
[2023-05-23 18:26] VITALS: BP 134/82; PULSE 86; RESP 18
--- NOTE | 2023-05-23 20:12 | XRAY ---
Indication: Pain following fall. Comparison: None 3 view right knee demonstrates minimal medial joint space narrowing. No other bony, articular, or soft tissue abnormalities.
== END 2023-05-23 18:00 | disposition home or self-care (01) ==
LOC: ED 15:38
DX: S80.211A Abrasion, right knee, initial encounter (principal); L08.9 Local infection of the skin and subcutaneous tissue, unspecified; W03.XXXA Other fall on same level due to collision with another person, initial encounter; Z79.899 Other long term (current) drug therapy; Z23 Encounter for immunization
CPT/HCPCS: 73562; 90471; 90715; 96372; 99283; J1885; A9270-GY

== ENCOUNTER 2023-07-30 11:45 | Emergency (ER) | payer OTHER ==
[2023-07-30] MEDS ORDERED: BABY ASPIRIN 81 MG CHEW PO ONE (11:48)
--- NOTE | 2023-07-30 11:48 | ERPHSYRPT ---
- History of Present Illness Time Seen by Provider: 07/30/23 11:48 Historian: patient, EMS, old records Exam Limitations: other Physician History: This is a 47-year-old white female patient of Dr. Valera who presents with 2- day history of midsternal sharp chest pain without radiation that has been present for 2 days. Patient was seen 2 days ago by her primary care physician and given an injection of steroids for treatment of bronchitis. The chest pain has not worsened but has not improved. Patient is deaf. She has a history of dystonia disorder, and anxiety disorder. Patient denies cough. Patient denies shortness of breath. She does have headache and body aches. Patient has not undergone any viral swabs. She has no diagnosed coronary artery disease. Timing/Duration: day(s) (2) Activities at Onset: none Quality: sharpness Location: substernal, central Chest Pain Radiation: no radiation Severity of Pain-Max: moderate Severity of Pain-Current: mild (To moderate) Modifying Factors: Improves With: nothing Associated Symptoms: No nausea, No vomiting, No shortness of breath Nitro Today/Relief: no nitro taken today Aspirin Treatment Today: 81 mg x 4, provided by EMS Allergies/Adverse Reactions: Sulfa (Sulfonamide Antibiotics) [Sulfa(Sulfonamide Antibiotics)] Allergy (Verified 07/30/23 11:47) Home Medications: Trihexyphenidyl HCl 1 mg PO TID 01/03/16 [History] Clonazepam 0.5 mg [Klonopin 0.5 MG] 1 mg PO BID 03/07/16 [History] Gabapentin [Neurontin] 800 mg PO TID 03/07/16 [History] Tizanidine HCl 4 mg [Zanaflex 4 MG] 1 ea PO DAILY 09/22/21 [History] Nabumetone [Relafen] 500 mg PO BID 06/30/22 [History] Ibuprofen 800 mg PO Q8HPRN PRN 07/30/22 [History] Hx Tetanus, Diphtheria Vaccination/Date Given: Yes Hx Influenza Vaccination/Date Given: No Hx Pneumococcal Vaccination/Date Given: No Travel Risk - International Travel Have you traveled outside of the country in past 3 weeks: No - Coronavirus Screening Are you exhibiting any of the following symptoms?: Yes Symptoms: Headaches/Body Aches/Fatigue Close contact with a COVID-19 positive Pt in past 14-21 Days: No - Vaccine Status Have you recieved a Covid-19 vaccination: Yes Gis Specialist: Pfizer - Vaccination Dates Date of 2cond Vaccination (if applicable): 2020 - Review of Systems Constitutional: No Symptoms Eyes: No Symptoms Ears, Nose, & Throat: No Symptoms Respiratory: No Symptoms Cardiac: Chest Pain Abdominal/Gastrointestinal: No Symptoms Genitourinary Symptoms: No Symptoms Musculoskeletal: No Symptoms Skin: No Symptoms Neurological: Headache Psychological: No Symptoms Endocrine: No Symptoms Hematologic/Lymphatic: No Symptoms Immunological/Allergic: No Symptoms All Other Systems: Reviewed and Negative - Past Medical History Pertinent Past Medical History: Yes Neurological History: No Pertinent History ENT History: No Pertinent History Cardiac History: No Pertinent History Respiratory History: No Pertinent History Endocrine Medical History: No Pertinent History Musculoskeletal History: Other GI Medical History: No Pertinent History History: No Pertinent History Psycho-Social History: Anxiety Female Reproductive Disorders: Abnormal Uterine Bleeding, Menstrual Problems, Other Other Medical History: DYSTONIA DISORDER, Patient is deaf - Past Surgical History Past Surgical History: Yes Neuro Surgical History: No Pertinent History Cardiac: No Pertinent History Respiratory: No Pertinent History Gastrointestinal: No Pertinent History Genitourinary: No Pertinent History Musculoskeletal: No Pertinent History Female Surgical History: Section, Tubal Ligation, Other Other Surgical History: COCHL. EAR IMPLANT - Social History Smoking Status: Never smoker How long have you smoked: 25 Exposure to second hand smoke: Yes Drug Use: none Patient Lives Alone: No - Nursing Vital Signs Nursing Vital Signs: Initial Vital Signs O2 Sat by Pulse Oximetry 98 07/30/23 11:48 Pain Scale Pain Intensity 10 - Physical Exam General Appearance: no apparent distress, alert, anxiety, thin Eye Exam: PERRL/EOMI, eyes nml inspection Ears, Nose, Throat Exam: normal ENT inspection, moist mucous membranes Neck Exam: normal inspection, non-tender, supple, full range of motion Respiratory Exam: normal breath sounds, chest tenderness, lungs clear, airway intact, No respiratory distress Cardiovascular Exam: regular rate/rhythm, normal heart sounds, normal peripheral pulses Gastrointestinal/Abdomen Exam: soft, normal bowel sounds, No tenderness Pelvic Exam: not done Rectal Exam: not done Back Exam: normal inspection, normal range of motion, No CVA tenderness, No vertebral tenderness Extremity Exam: normal inspection, normal range of motion, pelvis stable Neurologic Exam: alert, oriented x 3, cooperative, jack setter II-XII nml as tested, normal mood/affect, nml cerebellar function, nml station & gait, sensation nml Skin Exam: normal color, warm, dry Lymphatic Exam: No adenopathy SpO2 Interpretation: normal O2 Delivery: Room Air - Course Nursing assessment & vital signs reviewed: Yes EKG Interpreted by Me: RATE (76), Sinus Rhythm, NORMAL AXIS, NORMAL INTERVALS, NORMAL QRS, NORMAL ST-T, Other (No acute ischemic changes on today's twelve-lead EKG.) Ordered Tests: Active Orders 24 hr Category Date Time Status EKG-ER Only STAT Care 07/30/23 11:48 Active IV Insertion STAT Care 07/30/23 11:48 Active Pulse Oximetry (ED) STAT Care 07/30/23 11:48 Active CHEST 1 VIEW (PORTABLE) Stat Exams 07/30/23 11:49 Completed CBC W DIFF Stat Lab 07/30/23 11:48 Completed CMP Stat Lab 07/30/23 12:15 Completed D-DIMER QUANTITATIVE Stat Lab 07/30/23 12:15 Completed MONO SCREEN Stat Lab 07/30/23 12:08 Completed NT PRO BNPII Stat Lab 07/30/23 12:15 Completed PROTIME WITH INR Stat Lab 07/30/23 12:15 Completed TROPONIN Q4H Lab 07/30/23 12:15 Completed TROPONIN Q4H Lab 07/30/23 16:00 Ordered TROPONIN Q4H Lab 07/30/23 20:00 Ordered UA W/RFX UR CULTURE Stat Lab 07/30/23 13:05 Completed Medication Summary Discontinued Medications Generic Name Dose Route Start Last Admin Trade Name Jackie PRN Reason Stop Dose Admin Aspirin 324 mg 07/30/23 11:48 07/30/23 12:00 Aspirin 81 Mg Tab.Chew PO 07/30/23 11:49 Not Given STAT ONE Morphine Sulfate 2 mg 07/30/23 13:00 07/30/23 13:26 Morphine Sulfate 2 Mg/Ml Inj IV 07/30/23 13:01 2 mg STAT ONE Administration Morphine Sulfate Confirm 07/30/23 13:22 Morphine Sulfate 2 Mg/Ml Inj Administered 07/30/23 13:23 Dose 2 mg .ROUTE .STK-MED ONE Ondansetron HCl 4 mg 07/30/23 13:00 07/30/23 13:24 Ondansetron Hcl 4 Mg/2 Ml Vial IV 07/30/23 13:01 4 mg STAT ONE Administration Ondansetron HCl Confirm 07/30/23 13:22 Ondansetron Hcl 4 Mg/2 Ml Vial Administered 07/30/23 13:23 Dose 4 mg .ROUTE .STK-MED ONE Lab/Rad Data: Laboratory Result Diagrams 07/30/23 11:48 07/30/23 12:15 Laboratory Results 07/30/23 07/30/23 07/30/23 Range/Units 13:15 13:05 12:35 WBC (4.0-10.5) x10^3/uL RBC (4.1-5.4) x10^6/uL Hgb (12.0-16.0) g/dL Hct (35-47) % MCV (78-100) fL MCH (26-32) pg MCHC (32-36) g/dL RDW (11.5-14.0) % Plt Count (150-450) x10^3/uL MPV (7.5-11.0) fL Gran % (36.0-66.0) % Immature Gran % (Auto) (0.00-0.4) % Nucleat RBC Rel Count (0.00-0.1) % Eos # (Auto) (0-0.5) x10^3/uL Immature Gran # (Auto) (0.00-0.03) x10^3u/L Absolute Lymphs (auto) (1.0-4.6) x10^3/uL Absolute Monos (auto) (0.0-1.3) x10^3/uL Absolute Nucleated RBC (0.00-0.01) x10^3u/L Lymphocytes % (24.0-44.0) % Monocytes % (0.0-12.0) % Eosinophils % (0.00-5.0) % Basophils % (0.0-0.4) % Absolute Granulocytes (1.4-6.9) x10^3/uL Basophils # (0-0.4) x10^3/uL PT (9.4-12.5) SECONDS INR (0.8-3.0) D-Dimer (0.0-0.50) mg/L Sodium (137-145) mmol/L Potassium (3.5-5.1) mmol/L Chloride (98-107) mmol/L Carbon Dioxide (22-30) mmol/L Anion Gap (5-15) MEQ/L BUN (7-17) mg/dL Creatinine (0.52-1.04) mg/dL Estimated GFR ML/MIN Glucose (74-106) mg/dL Calcium (8.4-10.2) mg/dL Total Bilirubin (0.2-1.3) mg/dL AST (14-36) U/L ALT (0-35) U/L Alkaline Phosphatase (38-126) U/L Troponin I (0.000-0.034) ng/mL NT-Pro-B Natriuret Pep (<300) pg/mL Serum Total Protein (6.3-8.2) g/dL Albumin (3.5-5.0) g/dL Urine Color Yellow (Yellow) Urine Appearance Clear (Clear) Urine pH 7.0 (4.6-8.0) Ur Specific [place] 1.010 (1.005-1.030) Urine Protein Negative (Negative) Urine Glucose (UA) Negative (Negative) mg/dL Urine Ketones Negative (Negative) Urine Blood Negative (Negative) Urine Nitrite Negative (Negative) Urine Bilirubin Negative (Negative) Urine Urobilinogen 0.2 (0.2) mg/dL Ur Leukocyte Esterase Negative (Negative) U Hyaline Cast (Auto) NONE SEEN (0-2) /LPF Urine Microscopic RBC 0-2 (0-5) /HPF Urine Microscopic WBC 0-2 (0-5) /HPF Ur Epithelial Cells None Seen (None Seen) /HPF Urine Bacteria None Seen (None Seen) /HPF Urine Culture Reflexed NO (NO) Monoscreen (NEGATIVE) Influenza Type A Ag NEGATIVE (NEGATIVE) Influenza Type B Ag NEGATIVE (NEGATIVE) RSV (PCR) NEGATIVE (NEGATIVE) SARS-CoV-2 (PCR) POSITIVE A (NEGATIVE) Group A Strep Antibody NOT DETECTED (NEGATIVE) 07/30/23 07/30/23 07/30/23 Range/Units 12:15 12:15 12:15 WBC (4.0-10.5) x10^3/uL RBC (4.1-5.4) x10^6/uL Hgb (12.0-16.0) g/dL Hct (35-47) % MCV (78-100) fL MCH (26-32) pg MCHC (32-36) g/dL RDW (11.5-14.0) % Plt Count (150-450) x10^3/uL MPV (7.5-11.0) fL Gran % (36.0-66.0) % Immature Gran % (Auto) (0.00-0.4) % Nucleat RBC Rel Count (0.00-0.1) % Eos # (Auto) (0-0.5) x10^3/uL Immature Gran # (Auto) (0.00-0.03) x10^3u/L Absolute Lymphs (auto) (1.0-4.6) x10^3/uL Absolute Monos (auto) (0.0-1.3) x10^3/uL Absolute Nucleated RBC (0.00-0.01) x10^3u/L Lymphocytes % (24.0-44.0) % Monocytes % (0.0-12.0) % Eosinophils % (0.00-5.0) % Basophils % (0.0-0.4) % Absolute Granulocytes (1.4-6.9) x10^3/uL Basophils # (0-0.4) x10^3/uL PT 10.3 (9.4-12.5) SECONDS INR 0.94 (0.8-3.0) D-Dimer 0.22 (0.0-0.50) mg/L Sodium 137 (137-145) mmol/L Potassium 4.1 (3.5-5.1) mmol/L Chloride 106 (98-107) mmol/L Carbon Dioxide 27 (22-30) mmol/L Anion Gap 8.6 (5-15) MEQ/L BUN 20 H (7-17) mg/dL Creatinine 0.75 (0.52-1.04) mg/dL Estimated GFR 98.8 ML/MIN Glucose 82 (74-106) mg/dL Calcium 8.4 (8.4-10.2) mg/dL Total Bilirubin 0.30 (0.2-1.3) mg/dL AST 21 (14-36) U/L ALT 17 (0-35) U/L Alkaline Phosphatase 62 (38-126) U/L Troponin I < 0.012 (0.000-0.034) ng/mL NT-Pro-B Natriuret Pep 95.4 (<300) pg/mL Serum Total Protein 6.4 (6.3-8.2) g/dL Albumin 3.7 (3.5-5.0) g/dL Urine Color (Yellow) Urine Appearance (Clear) Urine pH (4.6-8.0) Ur Specific [place] (1.005-1.030) Urine Protein (Negative) Urine Glucose (UA) (Negative) mg/dL Urine Ketones (Negative) Urine Blood (Negative) Urine Nitrite (Negative) Urine Bilirubin (Negative) Urine Urobilinogen (0.2) mg/dL Ur Leukocyte Esterase (Negative) U Hyaline Cast (Auto) (0-2) /LPF Urine Microscopic RBC (0-5) /HPF Urine Microscopic WBC (0-5) /HPF Ur Epithelial Cells (None Seen) /HPF Urine Bacteria (None Seen) /HPF Urine Culture Reflexed (NO) Monoscreen (NEGATIVE) Influenza Type A Ag (NEGATIVE) Influenza Type B Ag (NEGATIVE) RSV (PCR) (NEGATIVE) SARS-CoV-2 (PCR) (NEGATIVE) Group A Strep Antibody (NEGATIVE) 07/30/23 07/30/23 Range/Units 12:08 11:48 WBC 6.0 (4.0-10.5) x10^3/uL RBC 3.90 L (4.1-5.4) x10^6/uL Hgb 11.9 L (12.0-16.0) g/dL Hct 37.1 (35-47) % MCV 95.1 (78-100) fL MCH 30.5 (26-32) pg MCHC 32.1 (32-36) g/dL RDW 13.0 (11.5-14.0) % Plt Count 287 (150-450) x10^3/uL MPV 10.7 (7.5-11.0) fL Gran % 50.4 (36.0-66.0) % Immature Gran % (Auto) 0.3 (0.00-0.4) % Nucleat RBC Rel Count 0.0 (0.00-0.1) % Eos # (Auto) 0.43 (0-0.5) x10^3/uL Immature Gran # (Auto) 0.02 (0.00-0.03) x10^3u/L Absolute Lymphs (auto) 1.99 (1.0-4.6) x10^3/uL Absolute Monos (auto) 0.40 (0.0-1.3) x10^3/uL Absolute Nucleated RBC 0.00 (0.00-0.01) x10^3u/L Lymphocytes % 33.2 (24.0-44.0) % Monocytes % 6.7 (0.0-12.0) % Eosinophils % 7.2 H (0.00-5.0) % Basophils % 2.2 (0.0-0.4) % Absolute Granulocytes 3.03 (1.4-6.9) x10^3/uL Basophils # 0.13 (0-0.4) x10^3/uL PT (9.4-12.5) SECONDS INR (0.8-3.0) D-Dimer (0.0-0.50) mg/L Sodium (137-145) mmol/L Potassium (3.5-5.1) mmol/L Chloride (98-107) mmol/L Carbon Dioxide (22-30) mmol/L Anion Gap (5-15) MEQ/L BUN (7-17) mg/dL Creatinine (0.52-1.04) mg/dL Estimated GFR ML/MIN Glucose (74-106) mg/dL Calcium (8.4-10.2) mg/dL Total Bilirubin (0.2-1.3) mg/dL AST (14-36) U/L ALT (0-35) U/L Alkaline Phosphatase (38-126) U/L Troponin I (0.000-0.034) ng/mL NT-Pro-B Natriuret Pep (<300) pg/mL Serum Total Protein (6.3-8.2) g/dL Albumin (3.5-5.0) g/dL Urine Color (Yellow) Urine Appearance (Clear) Urine pH (4.6-8.0) Ur Specific [place] (1.005-1.030) Urine Protein (Negative) Urine Glucose (UA) (Negative) mg/dL Urine Ketones (Negative) Urine Blood (Negative) Urine Nitrite (Negative) Urine Bilirubin (Negative) Urine Urobilinogen (0.2) mg/dL Ur Leukocyte Esterase (Negative) U Hyaline Cast (Auto) (0-2) /LPF Urine Microscopic RBC (0-5) /HPF Urine Microscopic WBC (0-5) /HPF Ur Epithelial Cells (None Seen) /HPF Urine Bacteria (None Seen) /HPF Urine Culture Reflexed (NO) Monoscreen NEGATIVE (NEGATIVE) Influenza Type A Ag (NEGATIVE) Influenza Type B Ag (NEGATIVE) RSV (PCR) (NEGATIVE) SARS-CoV-2 (PCR) (NEGATIVE) Group A Strep Antibody (NEGATIVE) - Progress Progress: improved, re-examined Air Movement: good Progress Note: 07/30/23 12:31 This patient's medical issue is 1 of moderate complexity. Level complex in the workup performed is based on review of the patient's past medical history, review the patient's medication list, review the patient drug allergy list, history present illness and physical findings on examination. Workup in this patient includes placement of intravenous line, CBC, CMP, troponin level, BNP, D-dimer level, twelve-lead EKG chest x-ray, viral swabs and monotest. 07/30/23 12:34 Chest x-ray was interpreted by the radiologist and I reviewed the impression. Impression is there are no acute cardiopulmonary processes. Blood Culture(s) Obtained: No Counseled pt/family regarding: lab results, diagnosis, need for follow-up, rad results Medical Desision Making - Diagnostic Testing Diagnostic test were ordered, analyzed, and reviewed by me: Yes Radiological Interpretation: Reviewed by me, Teleradiologist Report - Risk of complications Low Risk: Low risk of morbidity from additional dx testing or treatment - Departure Departure Disposition: Home Clinical Impression: COVID-19 virus infection Condition: Stable Critical Care Time: No Referrals: ELZBIETA VALERA MD [Primary Care Provider] - Follow up/PCP as directed Additional Instructions: Drink plenty of clear liquids. Use Tylenol and ibuprofen for pain control. If you require additional pain control, contact your primary care provider. Take all your home medications as prescribed.
--- NOTE | 2023-07-30 12:17 | XRAY ---
Indication: Chest pain, cough, short of breath. Covid 19 symptoms. Comparison: April 18, 2020 Portable chest again demonstrates normal heart, lungs, and bony thorax.
[2023-07-30 12:19] LABS: Absolute Neutrophil Ct (ANC) 3.03 x10^3/uL (1.4-6.9); BASOPHIL % 2.2 % (0.0-0.4); Basophil (Absolute #) 0.13 x10^3/uL (0-0.4); Eosinophil % 7.2 % (0.00-5.0); Eosinophil (Absolute #) 0.43 x10^3/uL (0-0.5); Hematocrit 37.1 % (35-47); Hemoglobin 11.9 g/dL (12.0-16.0); IMMATURE GRAN # 0.02 x10^3u/L (0.00-0.03); IMMATURE GRAN % 0.3 % (0.00-0.4); Lymphocyte (Absolute #) 1.99 x10^3/uL (1.0-4.6); Lymphocytes % 33.2 % (24.0-44.0); Mean Cell Volume 95.1 fL (78-100); Mean Corpuscular Hemoglobin 30.5 pg (26-32); Mean Corpuscular Hgb Concent. 32.1 g/dL (32-36); Mean Platelet Volume 10.7 fL (7.5-11.0); Monocytes % 6.7 % (0.0-12.0); Neutrophil % 50.4 % (36.0-66.0); Platelet Count 287 x10^3/uL (150-450)
[2023-07-30 12:42] LABS: D-DIMER QUANTITATIVE 0.22 mg/L (0.0-0.50); INR 0.94 (0.8-3.0); PROTIME 10.3 SECONDS (9.4-12.5)
[2023-07-30 12:43] LABS: ALBUMIN 3.7 g/dL (3.5-5.0); ANION GAP 8.6 MEQ/L (5-15); BILIRUBIN,TOTAL 0.3 mg/dL (0.2-1.3); Calcium 8.4 mg/dL (8.4-10.2); Creatinine 1 0.75 mg/dL (0.52-1.04); EST GLOMERULAR FILTRATION RATE 98.8 ML/MIN; NT PRO BNPII 95.4 pg/mL (<300); Potassium 4.1 mmol/L (3.5-5.1); Total Protein 6.4 g/dL (6.3-8.2)
[2023-07-30] MEDS ORDERED: MORPHINE SULFATE 2 MG INJ IV ONE (13:00)
[2023-07-30] MEDS ORDERED: Zofran 4 MG/2 ML VIAL IV ONE (13:00)
[2023-07-30 13:21] LABS: INFLUENZA A NEGATIVE (NEGATIVE); INFLUENZA B NEGATIVE (NEGATIVE); RESPIRATORY SYNCTIAL VIRUS NEGATIVE (NEGATIVE)
[2023-07-30] MEDS ORDERED: MORPHINE SULFATE 2 MG INJ ONE (13:22)
[2023-07-30] MEDS ORDERED: Zofran 4 MG/2 ML VIAL ONE (13:22)
[2023-07-30 13:23] LABS: SARS-CoV-2 Xpert Express POSITIVE (NEGATIVE)
[2023-07-30 13:28] LABS: Appearance Clear (Clear); Bacteria None Seen /HPF (None Seen); Bilirubin Negative (Negative); Blood Negative (Negative); Epithelial Cells None Seen /HPF (None Seen); Glucose, Urine Negative (Negative); Hyaline Casts NONE SEEN /LPF (0-2); Ketones Negative (Negative); Leukocyte Esterase Negative (Negative); Nitrite Negative (Negative); Protein,Urine Dip Negative (Negative); RBC 0-2 /HPF (0-5); Urobilinogen 0.2 mg/dL (0.2); WBC 0-2 /HPF (0-5)
[2023-07-30 13:31] LABS: ADD URINE CULTURE? NO (NO)
[2023-07-30 13:36] VITALS: BP 112/75; PULSE 72; RESP 13; O2SAT 99
== END 2023-07-30 15:40 | disposition home or self-care (01) ==
LOC: ED 11:45
DX: U07.1 COVID-19 (principal); R07.9 Chest pain, unspecified; R51.9 Headache, unspecified; M79.10 Myalgia, unspecified site; Z79.899 Other long term (current) drug therapy
CPT/HCPCS: 0241U; 36000; 36415; 71045; 80053; 81001; 83880; 84484; 85025; 85379; 85610; 86308; 87651; 93005; 94760; 96374; 96375; 99284; J2270; J2405

== ENCOUNTER 2023-08-01 12:17 | Emergency (ER) | payer OTHER ==
[2023-08-01 12:33] VITALS: PULSE 83; TEMP 98.2
--- NOTE | 2023-08-01 12:38 | ERPHSYRPT ---
- History of Present Illness Time Seen by Provider: 08/01/23 12:36 Source: patient Exam Limitations: no limitations Patient Subjective Stated Complaint: Pt states that she has blood in her urine Triage Nursing Assessment: Pt was brought to the ER by EMS, vitals wnl, rates head pain as 10/10 from covid, states that she began having blood in her urine last night and thinks she has a UTI, pt was just checked for a UTI 2 days ago, pulses normal, skin n/w/d, doesn't appear to be in any distress Physician History: Patient is 47-year-old female recently was diagnosed with COVID and was treated accordingly 2 days ago started having some blood in her urine today so she came to the emergency room she still have some COVID symptoms but she denies any fever chills nausea or vomiting. Timing/Duration: day(s) (two days) Severity: mild Associated Symptoms: denies symptoms Allergies/Adverse Reactions: Sulfa (Sulfonamide Antibiotics) [Sulfa(Sulfonamide Antibiotics)] Allergy (Verified 08/01/23 12:33) Home Medications: Trihexyphenidyl HCl 1 mg PO TID 01/03/16 [History] Clonazepam 0.5 mg [Klonopin 0.5 MG] 1 mg PO BID 03/07/16 [History] Gabapentin [Neurontin] 800 mg PO TID 03/07/16 [History] Nabumetone [Relafen] 500 mg PO BID 06/30/22 [History] Ibuprofen 800 mg PO Q8HPRN PRN 07/30/22 [History] Hx Tetanus, Diphtheria Vaccination/Date Given: Yes Hx Influenza Vaccination/Date Given: No Hx Pneumococcal Vaccination/Date Given: No Travel Risk - International Travel Have you traveled outside of the country in past 3 weeks: No - Coronavirus Screening Are you exhibiting any of the following symptoms?: Yes Symptoms: Headaches/Body Aches/Fatigue Close contact with a COVID-19 positive Pt in past 14-21 Days: No - Vaccine Status Have you recieved a Covid-19 vaccination: Yes 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[employer] - Vaccination Dates Date of 2cond Vaccination (if applicable): 2020 - Review of Systems Constitutional: No Fever, No Chills Eyes: No Symptoms Ears, Nose, & Throat: No Symptoms Respiratory: No Cough, No Dyspnea Cardiac: No Chest Pain, No Edema, No Syncope Abdominal/Gastrointestinal: No Abdominal Pain, No Nausea, No Vomiting, No Diarrhea Genitourinary Symptoms: Hematuria, No Dysuria Musculoskeletal: No Back Pain, No Neck Pain Skin: No Rash Neurological: No Dizziness, No Focal Weakness, No Sensory Changes Psychological: No Symptoms Endocrine: No Symptoms All Other Systems: Reviewed and Negative - Past Medical History Pertinent Past Medical History: Yes Neurological History: No Pertinent History ENT History: No Pertinent History Cardiac History: No Pertinent History Respiratory History: No Pertinent History Endocrine Medical History: No Pertinent History Musculoskeletal History: Other GI Medical History: No Pertinent History History: No Pertinent History Psycho-Social History: Anxiety Female Reproductive Disorders: Abnormal Uterine Bleeding, Menstrual Problems, Other Other Medical History: DYSTONIA DISORDER, Patient is deaf - Past Surgical History Past Surgical History: Yes Neuro Surgical History: No Pertinent History Cardiac: No Pertinent History Respiratory: No Pertinent History Gastrointestinal: No Pertinent History Genitourinary: No Pertinent History Musculoskeletal: No Pertinent History Female Surgical History: Section, Tubal Ligation, Other Other Surgical History: COCHL. EAR IMPLANT - Social History Smoking Status: Never smoker How long have you smoked: 25 Exposure to second hand smoke: Yes Drug Use: none Patient Lives Alone: No - Female History Hx Now: No (tubal) - Nursing Vital Signs Nursing Vital Signs: Initial Vital Signs Temperature 98.2 F 08/01/23 12:24 Pulse Rate 83 08/01/23 12:24 Blood Pressure 107/69 08/01/23 12:24 O2 Sat by Pulse Oximetry 98 08/01/23 12:24 Pain Scale Pain Intensity 10 - Physical Exam General Appearance: no apparent distress, alert Eye Exam: PERRL/EOMI, eyes nml inspection Ears, Nose, Throat Exam: normal ENT inspection, TMs normal, pharynx normal, moist mucous membranes Neck Exam: normal inspection, non-tender, supple, full range of motion Respiratory Exam: normal breath sounds, lungs clear, No respiratory distress Cardiovascular Exam: regular rate/rhythm, normal heart sounds, normal peripheral pulses Gastrointestinal/Abdomen Exam: soft, normal bowel sounds, No tenderness, No mass Back Exam: normal inspection, normal range of motion, No CVA tenderness, No vertebral tenderness Extremity Exam: normal inspection, normal range of motion, pelvis stable Neurologic Exam: alert, oriented x 3, cooperative, normal mood/affect, nml cerebellar function, nml station & gait, sensation nml, No motor deficits Skin Exam: normal color, warm, dry, No rash Lymphatic Exam: No adenopathy SpO2: 98 - Course Nursing assessment & vital signs reviewed: Yes Ordered Tests: Active Orders 24 hr Category Date Time Status CULTURE,URINE Stat Lab 08/01/23 12:39 Received UA W/RFX UR CULTURE Stat Lab 08/01/23 12:39 Completed Medication Summary Discontinued Medications Generic Name Dose Route Start Last Admin Trade Name Freq PRN Reason Stop Dose Admin Ceftriaxone Sodium 1,000 mg 08/01/23 13:24 Ceftriaxone Sodium 1000 Mg Inj Vial IM 08/01/23 13:25 STAT ONE Lab/Rad Data: Laboratory Results 08/01/23 Range/Units 12:39 Urine Color Dark Yellow A (Yellow) Urine Appearance Cloudy A (Clear) Urine pH 5.5 (4.6-8.0) Ur Specific [place] >=1.030 A (1.005-1.030) Urine Protein Negative (Negative) Urine Glucose (UA) Negative (Negative) mg/dL Urine Ketones Trace A (Negative) Urine Blood Negative (Negative) Urine Nitrite Negative (Negative) Urine Bilirubin Negative (Negative) Urine Urobilinogen 1.0 A (0.2) mg/dL Ur Leukocyte Esterase Trace A (Negative) U Hyaline Cast (Auto) NONE SEEN (0-2) /LPF Urine Microscopic RBC 0-2 (0-5) /HPF Urine Microscopic WBC 3-5 (0-5) /HPF Ur Epithelial Cells Moderate A (None Seen) /HPF Urine Bacteria Few A (None Seen) /HPF Urine Culture Reflexed YES (NO) - Progress Progress: improved Counseled pt/family regarding: lab results, diagnosis, need for follow-up Medical Desision Making - Diagnostic Testing Diagnostic test were ordered, analyzed, and reviewed by me: Yes Radiological Interpretation: Reviewed by me - Risk of complications Minimal Risk: Minimal risk of morbidity - Departure Departure Disposition: Home Clinical Impression: Drug-seeking behavior, COVID-19 virus infection UTI (urinary tract infection) Qualifiers: Urinary tract infection type: site unspecified Hematuria presence: with hematur ia Qualified Code(s): N39.0 - Urinary tract infection, site not specified Condition: Stable Critical Care Time: No Referrals: ELZBIETA VALERA MD [Primary Care Provider] - Follow up/PCP as directed Instructions: Urinary Tract Infection, Adult (DC) Additional Instructions: Discharge/Care Plan ERICKSON SALGADO was seen on 08/01/23 in the Emergency Room. The patient was counseled regarding Diagnosis,Lab results, Imaging studies, need for follow up and when to return to the Emergency Room. Prescriptions given: Discharge Note I have spoken with the patient and/or caregivers. I have explained the patient's condition, diagnosis and treatment plan based on the information available to me at this time. I have answered the patient's and/or caregiver's questions and addressed any concerns. The patient and/or caregivers have as good understanding of the patient's diagnosis, condition and treatment plan as can be expected at this point. The vital signs have been stable. The patient's condition is stable and appropriate for discharge from the emergency department. The patient will pursue further outpatient evaluation with the primary care physician or other designated or consulting physician as outlined in the discharge instructions. The patient and/or caregivers are agreeable to this plan of care and follow-up instructions have been explained in detail. The patient and/or caregivers have received these instruction. The patient/and or caregivers are aware that any significant change in condition or worsening of symptoms should prompt an immediate return to this or the closest emergency department or call 911. ERICKSON SALGADO was seen on 08/01/23 n the Emergency Room. At that time you were treated for an emergent condition, during your visit Laboratory, Radiology and/or other procedures may have been ordered. It is very important that you follow-up with your Primary Care Physician ELZBIETA VALERA within the next 24-48 hours to review your Emergency Room visit and the final results of testing that was ordered. Some test results such as Urine Cultures, Blood Cultures, and other cultures if ordered will not be finalized for 24-48 hours. If you do not have a Primary Care Provider please call the medical records department at [phone] ext [phone] to obtain a copy of your results or you may sign into our patient portal to obtain these results by visiting us @ [email or web address] and completing the following steps: 1. Click on the Patient Portal link 2. Click the Patient Self Enrollment Link to complete the enrollment form and entering your 3. Once the enrollment form is completed you will receive an email with a temporary ID and password at the email address you provided. 4. Next choose a user name and password. Your user name must be at least 4 characters long and your password must be at least 4 characters long. 5. Choose a security question from the list and provide your answer to the question. If you already have signed into the Health Portal you may access your Health Care Information 02/03 by the following steps: 1. Login to our website @ [email or web address] 2. Enter your original user name and password. FAQS The [facility] Health Portal is an online tool that contains your Lab Results, Radiology Reports, Visit History, Discharge Instructions and Health Summary Lab and Radiology Results will not be available for 72 hours on the portal. The Portal is a secure site, passwords are encryted and URLs are re-written so they cannot be copied and pasted. You and authorized family members are the only ones who can access your Portal. Also there is a timeout feature that protects your information if you leave the Portal page open. If you have technical difficulty please use the Contact Us link on the page this will allow you to submit any questions you have regarding the Portal or you may contact the Medical Record Department at [phone] ext [phone]. Prescriptions: Ciprofloxacin [Cipro 500 MG] 500 mg PO BIDAC #14 tablet
[2023-08-01 13:21] LABS: Appearance Cloudy (Clear); Bacteria Few /HPF (None Seen); Bilirubin Negative (Negative); Blood Negative (Negative); Epithelial Cells Moderate /HPF (None Seen); Glucose, Urine Negative (Negative); Hyaline Casts NONE SEEN /LPF (0-2); Ketones Trace (Negative); Leukocyte Esterase Trace (Negative); Nitrite Negative (Negative); Ph 5.5 (4.6-8.0); Protein,Urine Dip Negative (Negative); RBC 0-2 /HPF (0-5); Specific Gravity >=1.030 (1.005-1.030)
[2023-08-01 13:22] LABS: ADD URINE CULTURE? YES (NO)
[2023-08-01] MEDS ORDERED: Rocephin 1000 MG INJ IM ONE (13:24)
[2023-08-01] MEDS ORDERED: XYLOCAINE 1% HCL 20 ML MDV ONE (13:32)
[2023-08-01] MEDS ORDERED: Rocephin 1000 MG INJ ONE (13:32)
[2023-08-01 13:44] VITALS: BP 113/72; RESP 16; O2SAT 96
== END 2023-08-01 13:45 | disposition home or self-care (01) ==
LOC: ED 12:17
DX: N39.0 Urinary tract infection, site not specified (principal); U07.1 COVID-19; Z76.5 Malingerer [conscious simulation]; R31.9 Hematuria, unspecified; Z79.899 Other long term (current) drug therapy
CPT/HCPCS: 81001; 87086; 96372; 99283; J0696

== ENCOUNTER 2023-08-11 11:19 | Emergency (ER) | payer OTHER ==
[2023-08-11] MEDS ORDERED: Sodium Chloride 0.9% 1000 ML 1,000 ML IV STA (11:33)
--- NOTE | 2023-08-11 11:38 | ERPHSYRPT ---
- History of Present Illness Time Seen by Provider: 08/11/23 11:34 Historian: patient Physician History: Patient is a 47-year-old female presents to the emergency department via EMS for evaluation of diarrhea. Patient recently diagnosed with COVID. She is currently COVID-positive. Patient also experiencing some vague abdominal pain described to her umbilicus. Patient concerned as her mother recently of colorectal cancer. Symptoms are mild to moderate in intensity. Pain in the abdomen reproduced with palpation. Pain improved with rest. Patient voices no other complaints or concerns at this time. Portions of this note were created with voice recognition technology. There may be grammatical, spelling, punctuation or sound alike errors Timing/Duration: yesterday Activities at Onset: none Quality: aching Abdominal Pain Onset Location: periumbilical Pain Radiation: no radiation Severity of Pain-Max: moderate Severity of Pain-Current: mild Modifying Factors: Improves With: palpation Associated Symptoms: denies symptoms Previous symptoms: no prior history Allergies/Adverse Reactions: Sulfa (Sulfonamide Antibiotics) [Sulfa(Sulfonamide Antibiotics)] Allergy (Verified 08/11/23 11:24) Home Medications: Trihexyphenidyl HCl 1 mg PO TID 01/03/16 [History] Clonazepam 0.5 mg [Klonopin 0.5 MG] 1 mg PO BID 03/07/16 [History] Gabapentin [Neurontin] 800 mg PO TID 03/07/16 [History] Nabumetone [Relafen] 500 mg PO BID 06/30/22 [History] Ibuprofen 800 mg PO Q8HPRN PRN 07/30/22 [History] Hx Tetanus, Diphtheria Vaccination/Date Given: Yes Hx Influenza Vaccination/Date Given: No Hx Pneumococcal Vaccination/Date Given: No Travel Risk - Vaccine Status Have you recieved a Covid-19 vaccination: Yes 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[employer] - 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 Dates Date of 2cond Vaccination (if applicable): 2020 - Review of Systems Constitutional: No Symptoms, No Fever, No Chills Eyes: No Symptoms Ears, Nose, & Throat: No Symptoms Respiratory: No Symptoms, No Cough, No Dyspnea Cardiac: No Symptoms, No Chest Pain, No Edema, No Syncope Abdominal/Gastrointestinal: No Symptoms, No Abdominal Pain, No Nausea, No Vomiting, No Diarrhea Genitourinary Symptoms: No Symptoms, No Dysuria Musculoskeletal: No Symptoms, No Back Pain, No Neck Pain Skin: No Symptoms, No Rash Neurological: No Symptoms, No Dizziness, No Focal Weakness, No Sensory Changes Psychological: No Symptoms Endocrine: No Symptoms Hematologic/Lymphatic: No Symptoms Immunological/Allergic: No Symptoms All Other Systems: Reviewed and Negative - Past Medical History Pertinent Past Medical History: Yes Neurological History: No Pertinent History ENT History: No Pertinent History Cardiac History: No Pertinent History Respiratory History: No Pertinent History Endocrine Medical History: No Pertinent History Musculoskeletal History: Other GI Medical History: No Pertinent History History: No Pertinent History Psycho-Social History: Anxiety Female Reproductive Disorders: Abnormal Uterine Bleeding, Menstrual Problems, Other Other Medical History: DYSTONIA DISORDER, Patient is deaf - Past Surgical History Past Surgical History: Yes Neuro Surgical History: No Pertinent History Cardiac: No Pertinent History Respiratory: No Pertinent History Gastrointestinal: No Pertinent History Genitourinary: No Pertinent History Musculoskeletal: No Pertinent History Female Surgical History: Section, Tubal Ligation, Other Other Surgical History: COCHL. EAR IMPLANT - Social History Smoking Status: Never smoker How long have you smoked: 25 Exposure to second hand smoke: Yes Drug Use: none Patient Lives Alone: No - Nursing Vital Signs Nursing Vital Signs: Initial Vital Signs Temperature 99.1 F 08/11/23 11:23 Pulse Rate 81 08/11/23 11:23 Respiratory Rate 16 08/11/23 11:23 Blood Pressure 129/61 08/11/23 11:23 O2 Sat by Pulse Oximetry 97 08/11/23 11:23 Pain Scale Pain Intensity 8 - Physical Exam General Appearance: no apparent distress, alert Eye Exam: PERRL/EOMI, eyes nml inspection Ears, Nose, Throat Exam: normal ENT inspection, pharynx normal, moist mucous membranes Neck Exam: normal inspection, non-tender, supple, full range of motion Respiratory Exam: normal breath sounds, lungs clear, airway intact, No respiratory distress Cardiovascular Exam: regular rate/rhythm, normal heart sounds, normal peripheral pulses Gastrointestinal/Abdomen Exam: soft, No tenderness, No mass Back Exam: normal inspection, normal range of motion, No CVA tenderness, No vertebral tenderness Extremity Exam: normal inspection, normal range of motion, pelvis stable Neurologic Exam: alert, oriented x 3, cooperative, normal mood/affect, nml cer ebellar function, sensation nml, No motor deficits Skin Exam: normal color, warm, dry Lymphatic Exam: No adenopathy SpO2 Interpretation: normal SpO2: 96 O2 Delivery: Room Air - Course Nursing assessment & vital signs reviewed: Yes - CT Exams Abdomen/Pelvis CT Interpretation: Tele-radiologist Report (Atherosclerotic disease otherwise no acute intra-abdominal processes observed on CAT scan) Ordered Tests: Active Orders 24 hr Category Date Time Status IV Insertion STAT Care 08/11/23 11:33 Active ABDOMEN AND PELVIS W/0 CONTRAS [CT] Stat Exams 08/11/23 11:33 Completed CBC W DIFF Stat Lab 08/11/23 12:20 Completed CMP Stat Lab 08/11/23 12:20 Completed UA W/RFX UR CULTURE Stat Lab 08/11/23 11:47 Completed Medication Summary Generic Name Dose Route Start Last Admin Trade Name Freq PRN Reason Stop Dose Admin Magnesium Sulfate/Dextrose 100 mls @ 100 mls/hr 08/11/23 13:15 08/11/23 13:29 Magnesium 1 Gm / 100 Ml D5w IV 08/11/23 15:14 100 mls/hr Q1H NATHALY Administration Discontinued Medications Generic Name Dose Route Start Last Admin Trade Name Freq PRN Reason Stop Dose Admin Droperidol 1.25 mg 08/11/23 13:22 08/11/23 13:26 Droperidol 5 Mg/2 Ml Vial IV 08/11/23 13:23 1.25 mg STAT ONE Administration Droperidol Confirm 08/11/23 13:25 Droperidol 5 Mg/2 Ml Vial Administered 08/11/23 13:26 Dose 5 mg .ROUTE .STK-MED ONE Sodium Chloride 1,000 mls @ 999 mls/hr 08/11/23 11:33 08/11/23 12:45 Sodium Chloride 0.9% 1000 Ml IV 08/11/23 12:33 Infused .Q1H1M STA Infusion Sodium Chloride Confirm 08/11/23 11:40 Sodium Chloride 0.9% 1000 Ml Administered 08/11/23 11:41 Dose 1,000 mls @ ud .ROUTE .STK-MED ONE Potassium Chloride 40 meq 08/11/23 13:03 08/11/23 13:28 Potassium Chloride Tab 10 Meq Tab PO 08/11/23 13:04 40 meq STAT ONE Administration Potassium Chloride Confirm 08/11/23 13:23 Potassium Chloride Tab 10 Meq Tab Administered 08/11/23 13:24 Dose 40 meq PO .STK-MED ONE Lab/Rad Data: Laboratory Result Diagrams 08/11/23 12:20 08/11/23 12:20 Laboratory Results 08/11/23 08/11/23 08/11/23 Range/Units 12:20 12:20 11:47 WBC 8.7 (4.0-10.5) x10^3/uL RBC 3.95 L (4.1-5.4) x10^6/uL Hgb 12.0 (12.0-16.0) g/dL Hct 36.8 (35-47) % MCV 93.2 (78-100) fL MCH 30.4 (26-32) pg MCHC 32.6 (32-36) g/dL RDW 13.0 (11.5-14.0) % Plt Count 264 (150-450) x10^3/uL MPV 10.5 (7.5-11.0) fL Gran % 70.3 H (36.0-66.0) % Immature Gran % (Auto) 0.2 (0.00-0.4) % Nucleat RBC Rel Count 0.0 (0.00-0.1) % Eos # (Auto) 0.20 (0-0.5) x10^3/uL Immature Gran # (Auto) 0.02 (0.00-0.03) x10^3u/L Absolute Lymphs (auto) 1.94 (1.0-4.6) x10^3/uL Absolute Monos (auto) 0.34 (0.0-1.3) x10^3/uL Absolute Nucleated RBC 0.00 (0.00-0.01) x10^3u/L Lymphocytes % 22.3 L (24.0-44.0) % Monocytes % 3.9 (0.0-12.0) % Eosinophils % 2.3 (0.00-5.0) % Basophils % 1.0 (0.0-0.4) % Absolute Granulocytes 6.10 (1.4-6.9) x10^3/uL Basophils # 0.09 (0-0.4) x10^3/uL Sodium 136 L (137-145) mmol/L Potassium 3.0 L* (3.5-5.1) mmol/L Chloride 102 (98-107) mmol/L Carbon Dioxide 26 (22-30) mmol/L Anion Gap 11 (5-15) MEQ/L BUN 11 (7-17) mg/dL Creatinine 0.65 (0.52-1.04) mg/dL Estimated GFR 109.2 ML/MIN Glucose 100 (74-106) mg/dL Calcium 8.6 (8.4-10.2) mg/dL Total Bilirubin 0.50 (0.2-1.3) mg/dL AST 24 (14-36) U/L ALT 20 (0-35) U/L Alkaline Phosphatase 70 (38-126) U/L Serum Total Protein 6.6 (6.3-8.2) g/dL Albumin 4.0 (3.5-5.0) g/dL Urine Color Yellow (Yellow) Urine Appearance Clear (Clear) Urine pH 5.5 (4.6-8.0) Ur Specific [place] >=1.030 A (1.005-1.030) Urine Protein Negative (Negative) Urine Glucose (UA) Negative (Negative) mg/dL Urine Ketones Trace A (Negative) Urine Blood Negative (Negative) Urine Nitrite Negative (Negative) Urine Bilirubin Negative (Negative) Urine Urobilinogen 0.2 (0.2) mg/dL Ur Leukocyte Esterase Negative (Negative) U Hyaline Cast (Auto) NONE SEEN (0-2) /LPF Urine Microscopic RBC 0-2 (0-5) /HPF Urine Microscopic WBC 0-2 (0-5) /HPF Ur Epithelial Cells Few (None Seen) /HPF Urine Bacteria Few A (None Seen) /HPF Urine Culture Reflexed NO (NO) - Progress Progress: improved Progress Note: 47-year-old female presents to our ED via EMS for treatment of diarrhea. Physical exam reveals some periumbilical abdominal pain. CT abdomen pelvis showed atherosclerotic disease otherwise negative. CBC nonremarkable. CMP reveals a potassium of 3.0. Patient received 40 mill equivalents potassium replacement. Urinalysis reveals elevated specific gravity. In light of diarrhea patient likely experiencing some dehydration. IV fluids infused. Droperidol administered for headache. Potassium 3.0. Patient received 40 mill equivalents oral potassium along with 2 g magnesium. Patient reassessed. She feels well. Will discharge home. No indication for further workup at this emma e. She voices no other complaints or concerns at this time. Portions of this note were created with voice recognition technology. There may be grammatical, spelling, punctuation or sound alike errors Complexity problem addressed is moderate acute complicated No critical care time Complexity of data reviewed and analyzed is moderate. Test ordered test reviewed. Results analyzed and correlated clinically with history and physical exam. Risk of complication and or risk of morbidity/mortality of patient management is moderate Vital stable. Time spent to discharge patient is approximately 20 minutes. Plan of care established for shared decision making. No social determinants of health present impede follow-up. Portions of this note were created with voice recognition technology. There may be grammatical, spelling, punctuation or sound alike errors 08/11/23 13:57 Counseled pt/family regarding: lab results, diagnosis, need for follow-up, rad results - Departure Departure Disposition: Home Clinical Impression: Diarrhea, Hypokalemia, Atherosclerotic disease Condition: Stable Critical Care Time: No Referrals: ELZBIETA VALERA MD [Primary Care Provider] - Follow up/PCP as directed Additional Instructions: Discharge/Care Plan ERICKSON SALGADO was seen on 08/11/23 in the Emergency Room. The patient was counseled regarding Diagnosis,Lab results, Imaging studies, need for follow up and when to return to the Emergency Room. Prescriptions given: Discharge Note I have spoken with the patient and/or caregivers. I have explained the patient's condition, diagnosis and treatment plan based on the information available to me at this time. I have answered the patient's and/or caregiver's questions and addressed any concerns. The patient and/or caregivers have as good understanding of the patient's diagnosis, condition and treatment plan as can be expected at this point. The vital signs have been stable. The patient's condition is stable and appropriate for discharge from the emergency department. The patient will pursue further outpatient evaluation with the primary care physician or other designated or consulting physician as outlined in the disch arge instructions. The patient and/or caregivers are agreeable to this plan of care and follow-up instructions have been explained in detail. The patient and/or caregivers have received these instruction. The patient/and or caregivers are aware that any significant change in condition or worsening of symptoms should prompt an immediate return to this or the closest emergency department or call 911.
[2023-08-11 11:40] VITALS: TEMP 99.1
[2023-08-11] MEDS ORDERED: Sodium Chloride 0.9% 1000 ML 1,000 ML ONE (11:40)
--- NOTE | 2023-08-11 12:21 | XRAY ---
Indication: Abdomen pain. Multiple contiguous axial images obtained through the abdomen and pelvis without contrast. Comparison: April 18, 2020 Lung bases clear. Heart not enlarged. Noncontrasted stomach and bowel loops appear nonobstructed. Appendix not seen. No free fluid/air. Remaining liver, gallbladder, pancreas, spleen, adrenal glands, kidneys, ureters, bladder, and uterus are unremarkable for noncontrast exam. Again minimal aortic calcifications without AAA. Osseous structures intact. Impression: Stable minimal arteriosclerotic disease. Remaining CT abdomen/pelvis without contrast exam continues to be negative.
[2023-08-11 12:30] LABS: Basophil (Absolute #) 0.09 x10^3/uL (0-0.4); Eosinophil % 2.3 % (0.00-5.0); Hematocrit 36.8 % (35-47); IMMATURE GRAN # 0.02 x10^3u/L (0.00-0.03); IMMATURE GRAN % 0.2 % (0.00-0.4); Lymphocyte (Absolute #) 1.94 x10^3/uL (1.0-4.6); Lymphocytes % 22.3 % (24.0-44.0); Mean Cell Volume 93.2 fL (78-100); Mean Corpuscular Hemoglobin 30.4 pg (26-32); Mean Corpuscular Hgb Concent. 32.6 g/dL (32-36); Mean Platelet Volume 10.5 fL (7.5-11.0); Monocyte (Absolute #) 0.34 x10^3/uL (0.0-1.3); Monocytes % 3.9 % (0.0-12.0); Neutrophil % 70.3 % (36.0-66.0); Platelet Count 264 x10^3/uL (150-450); Red Blood Count 3.95 x10^6/uL (4.1-5.4); White Blood Count 8.7 x10^3/uL (4.0-10.5)
[2023-08-11 12:46] LABS: BILIRUBIN,TOTAL 0.5 mg/dL (0.2-1.3); Calcium 8.6 mg/dL (8.4-10.2); Creatinine 1 0.65 mg/dL (0.52-1.04); EST GLOMERULAR FILTRATION RATE 109.2 ML/MIN; Total Protein 6.6 g/dL (6.3-8.2)
[2023-08-11 12:57] LABS: ADD URINE CULTURE? NO (NO); Appearance Clear (Clear); Bacteria Few /HPF (None Seen); Bilirubin Negative (Negative); Blood Negative (Negative); Epithelial Cells Few /HPF (None Seen); Glucose, Urine Negative (Negative); Hyaline Casts NONE SEEN /LPF (0-2); Ketones Trace (Negative); Leukocyte Esterase Negative (Negative); Nitrite Negative (Negative); Ph 5.5 (4.6-8.0); Protein,Urine Dip Negative (Negative); RBC 0-2 /HPF (0-5); Specific Gravity >=1.030 (1.005-1.030); Urobilinogen 0.2 mg/dL (0.2); WBC 0-2 /HPF (0-5)
[2023-08-11] MEDS ORDERED: Klor Con PO ONE ×2 (13:03→13:23)
[2023-08-11] MEDS ORDERED: Magnesium 1 Gm / 100 Ml D5W*** 100 ML IV ONE ×2 (13:23→13:33)
[2023-08-11] MEDS: Magnesium 1 Gm / 100 Ml D5W*** 100 ML IV SCH ×2 (13:29→14:04)
[2023-08-11 14:06] VITALS: RESP 16
[2023-08-11 14:53] VITALS: BP 109/64; PULSE 72; O2SAT 97
== END 2023-08-11 14:53 | disposition home or self-care (01) ==
LOC: ED 11:19
DX: R19.7 Diarrhea, unspecified (principal); E87.6 Hypokalemia; I70.90 Unspecified atherosclerosis; R10.33 Periumbilical pain; Z79.899 Other long term (current) drug therapy
CPT/HCPCS: 36000; 36415; 74176; 80053; 81001; 85025; 96360; 96374; 99284; J3475; A9270-GY

== ENCOUNTER 2023-08-24 12:23 | Emergency (ER) | payer OTHER ==
--- NOTE | 2023-08-24 12:26 | ERPHSYRPT ---
- History of Present Illness Time Seen by Provider: 08/24/23 12:26 Source: patient Exam Limitations: no limitations Physician History: This is a 47-year-old white female patient who presents with 2-week history of bilateral earaches. She has not had any fevers. There has been no drainage from her ears. 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 Patient had no other complaints with the triage nurse. However, during my interview with her, she was concerned about the possibility of her having urinary tract infection as well. Patient has a history of anxiety issues as well as dystonia disorder. Patient has no chest pain. She has no shortness of breath. She denies abdominal pain. Timing/Duration: gradual onset, weeks (2) Severity: mild ENT Location: ear (R), ear (L) Prearrival Treatment: no prearrival treatment Modifying Factors: Improves With: activity Associated Symptoms: ear pain (R), ear pain (L) Allergies/Adverse Reactions: Sulfa (Sulfonamide Antibiotics) [Sulfa(Sulfonamide Antibiotics)] Allergy (Verified 08/24/23 12:28) Home Medications: Trihexyphenidyl HCl 2 mg PO TID 01/03/16 [History] Clonazepam 0.5 mg [Klonopin 0.5 MG] 1 mg PO BID 03/07/16 [History] Gabapentin [Neurontin] 600 mg PO TID 03/07/16 [History] Nabumetone [Relafen] 500 mg PO BID 06/30/22 [History] Ibuprofen 800 mg PO Q8HPRN PRN 07/30/22 [History] Tizanidine HCl 2 mg PO Q8H 08/24/23 [History] Hx Tetanus, Diphtheria Vaccination/Date Given: Yes Hx Influenza Vaccination/Date Given: No Hx Pneumococcal Vaccination/Date Given: No Travel Risk - International Travel Have you traveled outside of the country in past 3 weeks: No - Coronavirus Screening Are you exhibiting any of the following symptoms?: No Close contact with a COVID-19 positive Pt in past 14-21 Days: No - Vaccine Status Have you recieved a Covid-19 vaccination: Yes [employer] 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[employer] - Vaccination Dates Date of 2cond Vaccination (if applicable): 2020 - Review of Systems Constitutional: No Symptoms Eyes: No Symptoms Ears, Nose, & Throat: Ear Pain, Other (Patient is nearly completely deaf and does use bilateral hearing aids), No Ear Discharge (Bilateral) Respiratory: No Symptoms Cardiac: No Symptoms Abdominal/Gastrointestinal: No Symptoms Genitourinary Symptoms: No Symptoms Musculoskeletal: No Symptoms Skin: No Symptoms Neurological: No Symptoms Psychological: No Symptoms Endocrine: No Symptoms Hematologic/Lymphatic: No Symptoms Immunological/Allergic: No Symptoms All Other Systems: Reviewed and Negative - Past Medical History Pertinent Past Medical History: Yes Neurological History: No Pertinent History ENT History: No Pertinent History Cardiac History: No Pertinent History Respiratory History: No Pertinent History Endocrine Medical History: No Pertinent History Musculoskeletal History: Other GI Medical History: No Pertinent History History: No Pertinent History Psycho-Social History: Anxiety Female Reproductive Disorders: Abnormal Uterine Bleeding, Menstrual Problems, Other Other Medical History: DYSTONIA DISORDER, Patient is deaf - Past Surgical History Past Surgical History: Yes Neuro Surgical History: No Pertinent History Cardiac: No Pertinent History Respiratory: No Pertinent History Gastrointestinal: No Pertinent History Genitourinary: No Pertinent History Musculoskeletal: No Pertinent History Female Surgical History: Section, Tubal Ligation, Other Other Surgical History: COCHL. EAR IMPLANT - Social History Smoking Status: Never smoker How long have you smoked: 25 Exposure to second hand smoke: Yes Drug Use: none Patient Lives Alone: No - Nursing Vital Signs Nursing Vital Signs: Initial Vital Signs Temperature 97.8 F 08/24/23 12:29 Pulse Rate 88 08/24/23 12:29 Respiratory Rate 18 08/24/23 12:29 Blood Pressure 124/82 08/24/23 12:29 O2 Sat by Pulse Oximetry 99 08/24/23 12:29 Pain Scale Pain Intensity 7 - Physical Exam General Appearance: no apparent distress, alert, anxiety Eye Exam: bilateral eye: normal inspection, PERRL, EOMI Ear Exam: right ear: TM normal, left ear: TM bulging (Mild), bilateral ear: auricle normal, canal normal Nasal Exam: normal inspection Throat Exam: normal, pharynx normal Neck Exam: normal inspection, non-tender, supple, full range of motion Cardiovascular/Respiratory Exam: chest non-tender, no respiratory distress Abdominal Exam: non-tender Neurologic Exam: alert, oriented x 3, 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030 A (1.005-1.030) Urine Protein Trace A (Negative) Urine Glucose (UA) 500 A (Negative) mg/dL Urine Ketones Negative (Negative) Urine Blood Negative (Negative) Urine Nitrite Negative (Negative) Urine Bilirubin Negative (Negative) Urine Urobilinogen 0.2 (0.2) mg/dL Ur Leukocyte Esterase Negative (Negative) U Hyaline Cast (Auto) NONE SEEN (0-2) /LPF Urine Microscopic RBC 0-2 (0-5) /HPF Urine Microscopic WBC 3-5 (0-5) /HPF Ur Epithelial Cells Moderate A (None Seen) /HPF Urine Bacteria Moderate A (None Seen) /HPF Urine Culture Reflexed YES (NO) - Progress Progress Note: 08/24/23 13:18 This patient's medical issue is 1 of low complexity. Level complexity in the workup performed is based on review of the patient's past medical history, review of the patient's medication list, review of the patient's drug allergy list, history present illness and physical findings on examination. The patient did not initially complain of symptoms of urinary tract infection. However, during my interview, she did mention she thought she might have a urinary tract infection. We ordered a urinalysis and I am awaiting the results of this study. 08/24/23 13:53 I have interpreted the labs on this patient. The patient does not definitely have a urinary tract infection. We will discharge patient home without antibiotics and wait for the culture to determine if antibiotics are necessary. Counseled pt/family regarding: lab results, diagnosis, need for follow-up Medical Desision Making - Independent Historian Additional History obtained from: Relative/friend - Diagnostic Testing Diagnostic test were ordered, analyzed, and reviewed by me: Yes - Risk of complications The pt has a mod risk of morbidity or mortality based on: Need for prescription drug management - Departure Departure Disposition: Home Clinical Impression: Earache symptoms in both ears Condition: Stable Critical Care Time: No Referrals: ELZBIETA VALERA MD [Primary Care Provider] - Follow up/PCP as directed Additional Instructions: Drink plenty of fluids. Take your steroids and other medication as prescribed. Call your primary care provider today, 08/24/2023, to make a follow-up appointment for further evaluation management next 5 to 7 days. Prescriptions: Prednisone 10 mg [Deltasone 10 mg] 10 mg PO TID #12 tablet
[2023-08-24 12:40] VITALS: RESP 18; TEMP 97.8
[2023-08-24 13:26] VITALS: O2SAT 98
[2023-08-24 13:46] LABS: ADD URINE CULTURE? YES (NO); Appearance Cloudy (Clear); Bacteria Moderate /HPF (None Seen); Bilirubin Negative (Negative); Blood Negative (Negative); Epithelial Cells Moderate /HPF (None Seen); Glucose, Urine 500 mg/dL (Negative); Hyaline Casts NONE SEEN /LPF (0-2); Ketones Negative (Negative); Leukocyte Esterase Negative (Negative); Nitrite Negative (Negative); Ph 5.5 (4.6-8.0); Protein,Urine Dip Trace (Negative); RBC 0-2 /HPF (0-5); Specific Gravity >=1.030 (1.005-1.030); Urobilinogen 0.2 mg/dL (0.2)
[2023-08-24 14:12] VITALS: BP 125/77; PULSE 90
== END 2023-08-24 14:13 | disposition home or self-care (01) ==
LOC: ED 12:23
DX: H92.03 Otalgia, bilateral (principal); Z79.52 Long term (current) use of systemic steroids; Z79.899 Other long term (current) drug therapy
CPT/HCPCS: 81001; 87086; 99283

== ENCOUNTER 2024-04-13 11:53 | Emergency (ER) | payer MEDICAID, OTHER ==
[2024-04-13 12:02] VITALS: RESP 18; TEMP 98.7
[2024-04-13 12:53] VITALS: BP 84/50; PULSE 78; O2SAT 98
--- NOTE | 2024-04-13 13:08 | ERPHSYRPT ---
- History of Present Illness Time Seen by Provider: 04/13/24 12:45 Source: patient Exam Limitations: no limitations Patient Subjective Stated Complaint: PT states "My belly hurts and was swollen earlier. I have not pooped in 6 days." Triage Nursing Assessment: Pt presented alert and oriented X 3, skin pwd. Pt speech is slightly slurred which is normal for her. PT resting comfortably on the cot. Timing/Duration: today Severity: mild Associated Symptoms: denies symptoms Allergies/Adverse Reactions: Sulfa (Sulfonamide Antibiotics) [Sulfa(Sulfonamide Antibiotics)] Allergy (Verified 08/24/23 12:28) Home Medications: Trihexyphenidyl HCl 2 mg PO TID 01/03/16 [History] Clonazepam 0.5 mg [Klonopin 0.5 MG] 1 mg PO BID 03/07/16 [History] Gabapentin [Neurontin] 600 mg PO TID 03/07/16 [History] Nabumetone [Relafen] 500 mg PO BID 06/30/22 [History] Ibuprofen 800 mg PO Q8HPRN PRN 07/30/22 [History] Tizanidine HCl 2 mg PO Q8H 08/24/23 [History] Hx Tetanus, Diphtheria Vaccination/Date Given: Yes Hx Influenza Vaccination/Date Given: No Hx Pneumococcal Vaccination/Date Given: No Immunizations Up to Date: No Travel Risk - International Travel Have you traveled outside of the country in past 3 weeks: No - Emerging Infectious Disease Are you exhibiting symptoms associated with any current EIDs: Yes Symptoms: Abdominal Pain - Review of Systems Eyes: No Symptoms Ears, Nose, & Throat: No Symptoms Respiratory: No Symptoms Cardiac: No Symptoms Abdominal/Gastrointestinal: No Symptoms, Other (patient has non specific cramping ) Genitourinary Symptoms: No Symptoms Musculoskeletal: No Symptoms - Past Medical History Pertinent Past Medical History: Yes Neurological History: No Pertinent History ENT History: No Pertinent History Cardiac History: No Pertinent History Respiratory History: No Pertinent History Endocrine Medical History: No Pertinent History Musculoskeletal History: Other GI Medical History: No Pertinent History History: No Pertinent History Psycho-Social History: Anxiety Female Reproductive Disorders: Abnormal Uterine Bleeding, Menstrual Problems, Other Other Medical History: DYSTONIA DISORDER, Patient is deaf - Past Surgical History Past Surgical History: Yes Neuro Surgical History: No Pertinent History Cardiac: No Pertinent History Respiratory: No Pertinent History Gastrointestinal: No Pertinent History Genitourinary: No Pertinent History Musculoskeletal: No Pertinent History Female Surgical History: Section, Tubal Ligation, Other Other Surgical History: COCHL. EAR IMPLANT - Female History Hx Last Menstrual Period: none anymore Hx Now: No - Social History Smoking Status: Never smoker How long have you smoked: 25 Exposure to second hand smoke: Yes Drug Use: none Patient Lives Alone: No - Social Determinants of Health Will the patient participate in the screening: Declined to provide - Nursing Vital Signs Nursing Vital Signs: Initial Vital Signs Temperature 98.7 F 04/13/24 11:54 Pulse Rate 74 04/13/24 11:54 Respiratory Rate 18 04/13/24 11:54 Blood Pressure 93/52 04/13/24 11:54 O2 Sat by Pulse Oximetry 99 04/13/24 11:54 Pain Scale Pain Intensity 4 - Physical Exam General Appearance: no apparent distress Eye Exam: PERRL/EOMI, eyes nml inspection Ears, Nose, Throat Exam: normal ENT inspection Respiratory Exam: normal breath sounds Cardiovascular Exam: regular rate/rhythm Gastrointestinal/Abdomen Exam: soft, normal bowel sounds SpO2: 98 - Progress Progress Note: patient was seen and evaluated for constipation she will be discharged home with Bentyl and colace , she was also instructed on the need to try a fleets enema otc and try using miralax on a daily basis 04/13/24 13:03 Medical Desision Making - Discussion of managment Agreed on:: need for follow-up - Departure Clinical Impression: Constipation Condition: Good Critical Care Time: No Referrals: ELZBIETA VALERA MD [Primary Care Provider] - Follow up/PCP as directed Prescriptions: Docusate Sodium [Colace] 100 mg PO DAILY 10 Days #10 cap
== END 2024-04-13 13:42 | disposition home or self-care (01) ==
LOC: ED 11:53
DX: K59.00 Constipation, unspecified (principal); Z79.899 Other long term (current) drug therapy
CPT/HCPCS: 99281

== ENCOUNTER 2024-12-21 18:12 | Emergency (ER) | payer MEDICAID ==
[2024-12-21 18:56] VITALS: RESP 18; TEMP 97.2; O2SAT 98
[2024-12-21 20:04] LABS: Appearance Clear (Clear); Bacteria Rare /HPF (None Seen); Bilirubin Negative (Negative); Blood Negative (Negative); Epithelial Cells Rare /HPF (None Seen); Glucose, Urine Negative (Negative); Hyaline Casts NONE SEEN /LPF (0-2); Ketones Trace (Negative); Leukocyte Esterase Negative (Negative); Nitrite Negative (Negative); Protein,Urine Dip Negative (Negative); RBC 0-2 /HPF (0-5); Specific Gravity >=1.030 (1.005-1.030); Urobilinogen 0.2 mg/dL (0.2); WBC 0-2 /HPF (0-5)
[2024-12-21 20:13] VITALS: BP 107/68; PULSE 74
[2024-12-21] MEDS ORDERED: TORAdol 30 mg Injection ONE (20:15)
[2024-12-21] MEDS ORDERED: KEFLEX 500 MG ONE (20:16)
[2024-12-21] MEDS: TORAdol 30 mg Injection IM ONE (20:17)
[2024-12-21] MEDS: KEFLEX 500 MG PO ONE (20:17)
[2024-12-21] MEDS ORDERED: DECADRON 10MG INJ. ONE (20:18)
[2024-12-21] MEDS: DECADRON 10MG INJ. IM ONE (20:19)
--- NOTE | 2024-12-21 20:36 | ERPHSYRPT ---
- History of Present Illness Time Seen by Provider: 12/21/24 19:15 Source: patient Exam Limitations: no limitations Patient Subjective Stated Complaint: PT HERE FOR SORES TO LEFT THIGH, SHE STATES SHE CUT A BUG OUT OF SORE, NO FEVER, CO HEADACHE Triage Nursing Assessment: PT ALERT, WALKED IN, IS [place] BUT READS LIPS, RESP EASY, SKIN W/D/P. HAS MULTI OPEN SORES TO LEFT THIGH Physician History: 49-year-old female presents to the emergency department for evaluation of a rash to her left proximal thigh. The rash appears to have been scratched or disturbed as they have scabbed over. The area is slightly tender palpation. The involved extremity is neurovascular tact distally. Patient added that she has a history of UTI. Patient complains of dysuria. No trauma. No systemic manifestations. No fever. No nausea no vomiting no chest pain no shortness of breath. Patient otherwise feels well. She voices no other complaints or concerns at this time. Portions of this note were created with voice recognition technology. There may be grammatical, spelling, punctuation or sound alike errors Timing/Duration: today Severity: moderate Modifying Factors: Improves With: nothing Associated Symptoms: denies symptoms Allergies/Adverse Reactions: Sulfa (Sulfonamide Antibiotics) [Sulfa(Sulfonamide Antibiotics)] Allergy (Verified 12/21/24 18:54) Home Medications: Trihexyphenidyl HCl 2 mg PO TID 01/03/16 [History] Clonazepam 0.5 mg [Klonopin 0.5 MG] 1 mg PO BID 03/07/16 [History] Gabapentin [Neurontin] 600 mg PO TID 03/07/16 [History] Nabumetone [Relafen] 500 mg PO BID 06/30/22 [History] Ibuprofen 800 mg PO Q8HPRN PRN 07/30/22 [History] Tizanidine HCl 2 mg PO Q8H 08/24/23 [History] Hx Tetanus, Diphtheria Vaccination/Date Given: Yes Hx Influenza Vaccination/Date Given: No Hx Pneumococcal Vaccination/Date Given: No Immunizations Up to Date: Yes Travel Risk - International Travel Have you traveled outside of the country in past 3 weeks: No - Emerging Infectious Disease Are you exhibiting symptoms associated with any current EIDs: No Symptoms: Abdominal Pain - Review of Systems Constitutional: No Symptoms, No Fever, No Chills Eyes: No Symptoms Ears, Nose, & Throat: No Symptoms Respiratory: No Symptoms, No Cough, No Dyspnea Cardiac: No Symptoms, No Chest Pain, No Edema, No Syncope Abdominal/Gastrointestinal: No Symptoms, No Abdominal Pain, No Nausea, No Vomiting, No Diarrhea Genitourinary Symptoms: No Symptoms, No Dysuria Musculoskeletal: No Symptoms, No Back Pain, No Neck Pain Skin: No Symptoms, No Rash Neurological: No Symptoms, No Dizziness, No Focal Weakness, No Sensory Changes Psychological: No Symptoms Endocrine: No Symptoms Hematologic/Lymphatic: No Symptoms Immunological/Allergic: No Symptoms All Other Systems: Reviewed and Negative - Past Medical History Pertinent Past Medical History: Yes Neurological History: No Pertinent History ENT History: No Pertinent History Cardiac History: No Pertinent History Respiratory History: No Pertinent History Endocrine Medical History: No Pertinent History Musculoskeletal History: Other GI Medical History: No Pertinent History History: No Pertinent History Psycho-Social History: Anxiety Female Reproductive Disorders: Abnormal Uterine Bleeding, Menstrual Problems, Other Other Medical History: DYSTONIA DISORDER, Patient is deaf - Past Surgical History Past Surgical History: Yes Neuro Surgical History: No Pertinent History Cardiac: No Pertinent History Respiratory: No Pertinent History Gastrointestinal: No Pertinent History Genitourinary: No Pertinent History Musculoskeletal: No Pertinent History Female Surgical History: Section, Tubal Ligation, Other Other Surgical History: COCHL. EAR IMPLANT - Female History Hx Last Menstrual Period: NONE Hx Now: No - Social History Smoking Status: Never smoker How long have you smoked: 25 Exposure to second hand smoke: Yes Drug Use: none - Social Determinants of Health Will the patient participate in the screening: Declined to provide - Nursing Vital Signs Nursing Vital Signs: Initial Vital Signs Temperature 97.2 F 12/21/24 18:55 Pulse Rate 78 12/21/24 18:55 Respiratory Rate 18 12/21/24 18:55 Blood Pressure 108/79 12/21/24 18:55 O2 Sat by Pulse Oximetry 98 12/21/24 18:55 Pain Scale Pain Intensity 10 - Physical Exam General Appearance: no apparent distress, alert Eye Exam: PERRL/EOMI, eyes nml inspection Ears, Nose, Throat Exam: normal ENT inspection, pharynx normal, moist mucous mem branes Neck Exam: normal inspection, full range of motion Respiratory Exam: normal breath sounds, lungs clear, airway intact, No respiratory distress Cardiovascular Exam: regular rate/rhythm, normal heart sounds, normal peripheral pulses Gastrointestinal/Abdomen Exam: soft, normal bowel sounds, No tenderness, No mass Back Exam: normal inspection, normal range of motion, No CVA tenderness, No vertebral tenderness Extremity Exam: normal inspection, normal range of motion, pelvis stable Neurologic Exam: alert, oriented x 3, cooperative, normal mood/affect, sensation nml, No motor deficits Skin Exam: normal color, warm, dry, other (Papular rash left thigh that appears to have had some sort mechanical stress causing a superimposed scab. There are some erythema surrounding the scabbed area. The involved extremities neurovascular intact distally compartments are soft cap refill less than 2 seconds.), No rash Lymphatic Exam: No adenopathy SpO2 Interpretation: normal SpO2: 98 O2 Delivery: Room Air - Course Nursing assessment & vital signs reviewed: Yes Ordered Tests: Active Orders 24 hr Category Date Time Status UA W/RFX UR CULTURE Stat Lab 12/21/24 19:29 Completed Medication Summary Discontinued Medications Generic Name Dose Route Start Last Admin Trade Name Daveq PRN Reason Stop Dose Admin Cephalexin HCl 500 mg 12/21/24 20:12 12/21/24 20:17 Cephalexin Mh500 Mg Capsule PO 12/21/24 20:13 500 mg STAT ONE Administration Cephalexin HCl Confirm 12/21/24 20:16 Cephalexin Mh500 Mg Capsule Administered 12/21/24 20:17 Dose 500 mg .ROUTE .STK-MED ONE Dexamethasone Sodium Phosphate 8 mg 12/21/24 20:13 12/21/24 20:19 Dexamethasone Sod Phosphate 10 Mg/Ml IM 12/21/24 20:14 8 mg STAT ONE Administration Dexamethasone Sodium Phosphate Confirm 12/21/24 20:18 Dexamethasone Sod Phosphate 10 Mg/Ml Administered 12/21/24 20:19 Dose 10 mg .ROUTE .STK-MED ONE Ketorolac Tromethamine 30 mg 12/21/24 20:12 12/21/24 20:17 Ketorolac Tromethamine 30 Mg/Ml Inj IM 12/21/24 20:13 30 mg STAT ONE Administration Ketorolac Tromethamine Confirm 12/21/24 20:15 Ketorolac Tromethamine 30 Mg/Ml Inj Administered 12/21/24 20:16 Dose 30 mg .ROUTE .STK-MED ONE Lab/Rad Data: Laboratory Results 12/21/24 Range/Units 19:29 Urine Color Yellow (Yellow) Urine Appearance Clear (Clear) Urine pH 5.0 (4.6-8.0) Ur Specific [place] >=1.030 A (1.005-1.030) Urine Protein Negative (Negative) Urine Glucose (UA) Negative (Negative) mg/dL Urine Ketones Trace A (Negative) Urine Blood Negative (Negative) Urine Nitrite Negative (Negative) Urine Bilirubin Negative (Negative) Urine Urobilinogen 0.2 (0.2) mg/dL Ur Leukocyte Esterase Negative (Negative) U Hyaline Cast (Auto) NONE SEEN (0-2) /LPF Urine Microscopic RBC 0-2 (0-5) /HPF Urine Microscopic WBC 0-2 (0-5) /HPF Ur Epithelial Cells Rare (None Seen) /HPF Urine Bacteria Rare A (None Seen) /HPF Urine Culture Reflexed NO (NO) - Progress Progress: improved Progress Note: 49-year-old female presents the emergency department for evaluation of a rash to the medial aspect of her left thigh. The area is somewhat tender. Physical exam reveals a papular rash with a superimposed scab likely secondary to some mechanical force. The involved extremity is neurovascular tact distally compartments are soft cap refill less than 2 seconds. Patient also complained of urinary symptomology. Urine is negative for UTI. Patient received a dose of Decadron Toradol and Keflex. A prescription for Keflex for the patient's pharmacy. Patient reassessed. She is resting comfortably. Currently asymptomatic. Will discharge patient home. Patient agrees to follow-up with primary care doctor within 48 hours for reevaluation. Portions of this note were created with voice recognition technology. There may be grammatical, spelling, punctuation or sound alike errors Complexity of problem addressed is moderate acute complicated. No critical care time. Complexity of data reviewed and analyzed as moderate. Test ordered test reviewed results analyzed and correlated clinically with history and physical exam. Risk of complication or risk of morbidity/mortality of patient management is moderate. A prescription for Keflex forwarded to patient's pharmacy. Vital stable. Time spent to discharge patient is approximately 10 minutes. Plan of care established for shared decision making. No social determinants of health present to impede follow-up. Portions of this note were created with voice recognition technology. There may be grammatical, spelling, punctuation or sound alike errors 12/21/24 20:43 Counseled pt/family regarding: diagnosis, need for follow-up, rad results - Departure Departure Disposition: Home Clinical Impression: Dysuria, Rash Condition: Stable Critical Care Time: No Referrals: GOKUL COLBY MD [Primary Care Provider, [facility]] - Follow up/PCP as directed Instructions: Animal Bites (DC), Insect Bites and Stings (DC) Additional Instructions: Discharge/Care Plan ERICKSON SALGADO was seen on 12/21/24 in the Emergency Room. The patient was counseled regarding Diagnosis,Lab results, Imaging studies, need for follow up and when to return to the Emergency Room. Prescriptions given: Discharge Note I have spoken with the patient and/or caregivers. I have explained the patient's condition, diagnosis and treatment plan based on the information available to me at this time. I have answered the patient's and/or caregiver's questions and addressed any concerns. The patient and/or caregivers have as good understanding of the patient's diagnosis, condition and treatment plan as can be expected at this point. The vital signs have been stable. The patient's condition is stable and appropriate for discharge from the emergency department. The patient will pursue further outpatient evaluation with the primary care physician or other designated or consulting physician as outlined in the discharge instructions. The patient and/or caregivers are agreeable to this plan of care and follow-up instructions have been explained in detail. The patient and/or caregivers have received these instruction. The patient/and or caregivers are aware that any significant change in condition or worsening of symptoms should prompt an immediate return to this or the closest emergency department or call 911. Prescriptions: Cephalexin Mh 500 mg [Keflex 500 mg] 500 mg PO TID #21 cap
== END 2024-12-21 20:49 | disposition home or self-care (01) ==
LOC: ED 18:12
DX: R21 Rash and other nonspecific skin eruption (principal); R30.0 Dysuria; Z79.899 Other long term (current) drug therapy
CPT/HCPCS: 81001; 96372; 99283; 99284; J1100; J1885; A9270-GY

== ENCOUNTER 2025-05-07 21:12 | Emergency (ER) | payer OTHER ==
[2025-05-07 21:28] VITALS: PULSE 81; RESP 24; TEMP 97.1
[2025-05-07 21:29] VITALS: O2SAT 97
[2025-05-07 21:41] LABS: Hematocrit 39.3 % (34.1-44.9); Hemoglobin 12.7 g/dL (11.2-15.7); Mean Corpuscular Hemoglobin 30.4 pg (25.6-32.2); Mean Corpuscular Hgb Concent. 32.3 g/dL (32.2-35.5); Platelet Count 297 x10^3/uL (182-369); Red Blood Count 4.18 x10^6/uL (3.93-5.22); White Blood Count 7.7 x10^3/uL (3.98-10.04)
[2025-05-07 22:12] LABS: Calcium 9.0 mg/dL (8.4-10.2); Carbon Dioxide 29 mmol/L (22-30); Creatinine 1 0.87 mg/dL (0.52-1.04); EST GLOMERULAR FILTRATION RATE 81.6 ML/MIN; Glucose 106 mg/dL (74-106); Potassium 4.2 mmol/L (3.5-5.1); TROPONIN < 0.012 ng/mL (0.000-0.033)
[2025-05-07 22:17] LABS: INFLUENZA A NEGATIVE (NEGATIVE); INFLUENZA B NEGATIVE (NEGATIVE); RESPIRATORY SYNCTIAL VIRUS NEGATIVE (NEGATIVE); SARS-CoV-2 Xpert Express NEGATIVE (NEGATIVE)
--- NOTE | 2025-05-07 22:34 | ERPHSYRPT ---
- History of Present Illness Time Seen by Provider: 05/07/25 21:13 Source: patient, family, EMS Patient Subjective Stated Complaint: patient brought in by EMS has had this cough for couple days and jsut keeps dry coughing, EMS gave duoneb and solumedrol Triage Nursing Assessment: patient was roma in by EMS for shortness of breath, lung sounds clear, persistant dry cough, bilateral radial pulses. patient is alert and oprientedx4, able to ambulate by self, skin warm dry and intact. Physician History: HISTORY OF PRESENT ILLNESS 49-year-old female with a history of sulfa allergy, cochlear implant, and anxiety was brought in by EMS for evaluation of a dry cough ongoing for the past couple of days. EMS administered DuoNeb (albuterol/ipratropium) and Solu-Medrol (methylprednisolone) prior to arrival. She is a former smoker who currently vapes. PAST MEDICAL HISTORY - Allergy to sulfonamides - Cochlear implant - Anxiety PAST SURGICAL HISTORY - Tubal ligation - section SOCIAL HISTORY - Former smoker - Currently uses electronic cigarettes (vapes) Allergies/Adverse Reactions: Sulfa (Sulfonamide Antibiotics) [Sulfa(Sulfonamide Antibiotics)] Allergy (Verified 05/07/25 21:32) Home Medications: Trihexyphenidyl HCl 2 mg PO TID 01/03/16 [History] Clonazepam 0.5 mg [Klonopin 0.5 MG] 1 mg PO BID 03/07/16 [History] Gabapentin [Neurontin] 600 mg PO TID 03/07/16 [History] Nabumetone [Relafen] 500 mg PO BID 06/30/22 [History] Ibuprofen 800 mg PO Q8HPRN PRN 07/30/22 [History] Tizanidine HCl 2 mg PO Q8H 08/24/23 [History] Hx Tetanus, Diphtheria Vaccination/Date Given: Yes Hx Influenza Vaccination/Date Given: No Hx Pneumococcal Vaccination/Date Given: No Immunizations Up to Date: Yes Travel Risk - International Travel Have you traveled outside of the country in past 3 weeks: No - Emerging Infectious Disease Are you exhibiting symptoms associated with any current EIDs: No Symptoms: Abdominal Pain - Past Medical History Pertinent Past Medical History: Yes Neurological History: No Pertinent History ENT History: No Pertinent History Cardiac History: No Pertinent History Respiratory History: No Pertinent History Endocrine Medical History: No Pertinent History Musculoskeletal History: Other GI Medical History: No Pertinent History History: No Pertinent History Psycho-Social History: Anxiety Female Reproductive Disorders: Abnormal Uterine Bleeding, Menstrual Problems, Other Other Medical History: DYSTONIA DISORDER, Patient is deaf - Past Surgical History Past Surgical History: Yes Neuro Surgical History: No Pertinent History Cardiac: No Pertinent History Respiratory: No Pertinent History Gastrointestinal: No Pertinent History Genitourinary: No Pertinent History Musculoskeletal: No Pertinent History Female Surgical History: Section, Tubal Ligation, Other Other Surgical History: COCHL. EAR IMPLANT - Female History Hx Last Menstrual Period: NONE Hx Now: No - Social History Smoking Status: Former smoker How long have you smoked: 25 Exposure to second hand smoke: Yes Drug Use: none - Social Determinants of Health Will the patient participate in the screening: Declined to provide - Nursing Vital Signs Nursing Vital Signs: Initial Vital Signs Temperature 97.1 F 05/07/25 21:19 Pulse Rate 81 05/07/25 21:19 Respiratory Rate 20 05/07/25 21:19 Blood Pressure 105/55 05/07/25 21:19 O2 Sat by Pulse Oximetry 98 05/07/25 21:19 Pain Scale Pain Intensity 8 - Physical Exam SpO2: 97 Comments: 05/07/25 22:48 PHYSICAL EXAM VS: Reviewed in chart. General: Alert and oriented. No acute distress. HEENT: Normocephalic. Posterior oropharyngeal erythema No uvular deviation. No tonsillar exudates. No mastoid tenderness. No submandibular tenderness or fullness. No pain with neck flexion or extension. Respiratory: No wheezing, no rales or crackles. Cardiovascular: Normal peripheral perfusion. No edema. 2+ radial pulse. Normal rate. GI: Non-tender. Integumentary: Warm. Musculoskeletal: Moving all extremities. Neurologic: Alert, normal speech. Psychiatric: Appropriate. Ordered Tests: Active Orders 24 hr Category Date Time Status EKG-ER Only STAT Care 05/07/25 21:20 Active CHEST 1 VIEW (PORTABLE) Stat Exams 05/07/25 21:20 Taken BMP Stat Lab 05/07/25 21:35 Completed CBC W DIFF Stat Lab 05/07/25 21:35 Completed Manual Differential NC Stat Lab 05/07/25 21:35 Completed TROPONIN Stat Lab 05/07/25 21:35 Completed Lab/Rad Data: Laboratory Result Diagrams 05/07/25 21:35 05/07/25 21:35 Laboratory Results 05/07/25 05/07/25 05/07/25 Range/Units 21:45 21:35 21:35 WBC 7.7 (3.98-10.04) x10^3/uL RBC 4.18 (3.93-5.22) x10^6/uL Hgb 12.7 (11.2-15.7) g/dL Hct 39.3 (34.1-44.9) % MCV 94.0 (79.4-94.8) fL MCH 30.4 (25.6-32.2) pg MCHC 32.3 (32.2-35.5) g/dL RDW 12.3 (11.7-14.4) % Plt Count 297 (182-369) x10^3/uL MPV 10.0 (9.4-12.3) fL Sodium 137 (135-145) mmol/L Potassium 4.2 (3.5-5.1) mmol/L Chloride 104 (98-107) mmol/L Carbon Dioxide 29 (22-30) mmol/L Anion Gap 8.8 (5-15) MEQ/L BUN 20 H (7-17) mg/dL Creatinine 0.87 (0.52-1.04) mg/dL Estimated GFR 81.6 ML/MIN Glucose 106 (74-106) mg/dL Calcium 9.0 (8.4-10.2) mg/dL Troponin I < 0.012 (0.000-0.033) ng/mL Influenza Type A Ag NEGATIVE (NEGATIVE) Influenza Type B Ag NEGATIVE (NEGATIVE) RSV (PCR) NEGATIVE (NEGATIVE) SARS-CoV-2 (PCR) NEGATIVE (NEGATIVE) - Progress Progress Note: 05/07/25 22:49 SUMMARY 49-year-old female presented with several days of dry cough. EMS administered DuoNeb and Solu-Medrol prior to arrival. Chest x-ray showed no acute infiltrate. ECG demonstrated sinus rhythm without ischemic changes. Laboratory studies were unremarkable, including negative troponin and viral panels. On re-examination, symptoms improved. Acute cough diagnosed. Patient and family were updated regarding clinical improvement and discharge plan. Patient is safe for discharge home with return precautions. EKG A 12-lead EKG was performed at 22:42, and I independently interpret it as demonstrating sinus rhythm, no significant ST segment elevation or depression. No prolongation of the intervals. IMAGING This imaging was independently interpreted by me. We do not have Radiology over- reads available today for x-ray imaging, and the final report of this image will be read by radiology at a later date. If there is discrepancy, radiology to inform the staff or patient of any abnormality or incidental finding. Patient/family informed of this and agreeable with evaluation and management. On my limited, preliminary interpretation of the image: No acute infiltrate on chest x-ray LABS The following laboratory tests were performed and independently reviewed with results being unremarkable: troponin (negative), complete blood count (no leukocytosis, no anemia), basic metabolic panel (no significant electrolyte derangements), COVID, influenza, and RSV swabs (negative). PATIENT DISCUSSION I discussed available results with the patient, including improvement in symptoms and the discharge plan. MEDICAL DECISION MAKING This 49-year-old female presented with a dry cough for several days. She received DuoNeb and Solu-Medrol from EMS prior to arrival. On examination, her respiratory status was stable without wheezing, rales, or crackles. Chest x-ray showed no acute infiltrate, and her ECG demonstrated sinus rhythm with no evidence of STEMI or interval abnormalities. Laboratory evaluation revealed a negative troponin, no leukocytosis, no anemia, and no significant electrolyte derangements. COVID, influenza, and RSV swabs were negative. After treatment, the patients symptoms improved on re- examination. Given the benign exam, reassuring labs and imaging, and clinical improvement, the diagnosis of acute cough was made. The patient and family were updated on her status and discharge plan, and she is safe for discharge home with return precautions. DISPOSITION Discharge: Home Current findings satisfy outpatient-level criteria: cough improved, normal respiratory exam, negative chest x-ray, and negative troponin. Patient/family discussion confirmed understanding of return precautions and discharge plan. Condition: Improved Patient is resting well. Discussed case in detail and all results reviewed. Patient agrees with out-patient follow up for further evaluation of their condition. I explained medical problems represent dynamic processes and my evaluation today represents a single point in time and that the problem may evolve. The patient asked questions and I answered until my diagnosis, concerns and plan for treatment were fully understood. The patient is awake, alert, oriented, coherent, and lucid. The patient is comfortable with following up for further evaluation of their condition. Patient verbalized understanding and agrees with plan. - Departure Departure Disposition: Home Clinical Impression: Cough, Bronchitis Condition: Stable Critical Care Time: No Referrals: ELZBIETA VALERA MD [Primary Care Provider, INTERNAL [facility]] - Follow up/PCP as directed Instructions: Shortness of Breath (Dyspnea) (DC) Additional Instructions: Take the antibiotics as prescribed. Please call the patient's PCP office tomorrow, follow-up with your primary care doctor in the next few days. Please return to the ED if the patient has any new, worsening, or ongoing symptoms, or if their symptoms are not improving as expected. Prescriptions: Azithromycin 250 mg [Zithromax 250 MG TABLET] 250 mg PO ZPACK #6 tablet
[2025-05-07 22:42] VITALS: BP 95/65
[2025-05-07] MEDS ORDERED: Zithromax 250 MG TABLET ONE (22:49)
[2025-05-07] MEDS: Zithromax 250 MG TABLET PO ONE (22:50)
[2025-05-07] MEDS: TYLENOL 325 MG PO STA (22:50)
[2025-05-07] MEDS ORDERED: TYLENOL 325 MG ONE (22:50)
[2025-05-07 22:53] LABS: Total Cells Counted 100
[2025-05-07 22:54] LABS: Macrocytosis 1+
--- NOTE | 2025-05-08 08:37 | XRAY ---
Indication: Short of breath. Cough. Comparison: July 30, 2023 Portable chest demonstrates new minimal left midlung peripheral subsegmental atelectasis/scarring. Stable tiny left midlung calcified granuloma. Remaining heart, lungs, and bony thorax unremarkable.
== END 2025-05-07 22:55 | disposition home or self-care (01) ==
LOC: ED 21:12
DX: J40 Bronchitis, not specified as acute or chronic (principal); R05.1 Acute cough; Z79.899 Other long term (current) drug therapy

== ENCOUNTER 2025-05-10 22:34 | Emergency (ER) | payer OTHER ==
[2025-05-11 00:31] VITALS: TEMP 97.6
--- NOTE | 2025-05-11 01:31 | ERPHSYRPT ---
- History of Present Illness Time Seen by Provider: 05/11/25 01:28 Source: patient Exam Limitations: no limitations Patient Subjective Stated Complaint: pt reports recent dx with bronchitis, states she is not improving, reports that she has chest congestion, states she has been taking her abx as prescribed. pt is requesting a steroid shot. pt reports her head hurts from coughing. Triage Nursing Assessment: pt is aox3, pupils perrl, afebrile, resps easy and non labored, lung sounds are clear throughout all [place], intermittent dry cough noted, cap refill < 3 seconds, radial pulses strong and equal, pt skin pink warm dry. Physician History: Patient is a 49-year-old female history of anxiety, former smoker presents to our ED for evaluation of cough.. Patient describes chest congestion and cough that is ongoing and spite of azithromycin. Symptoms have been ongoing for approximately a week and a half. Patient has had similar symptoms in the past that improved with steroids. Patient requesting steroid shot. Patient reports she is constantly coughing. Cough is dry nonproductive. Patient states the frequency of coughing is causing a headache. No chest pain no shortness of breath no nausea vomiting or diaphoresis. Patient denies fevers. She otherwise feels well. Patient voices no other complaints or concerns at this time. Portions of this note were created with voice recognition technology. There may be grammatical, spelling, punctuation or sound alike errors Timing/Duration: week(s) Severity: moderate Modifying Factors: Improves With: medication Associated Symptoms: denies symptoms Allergies/Adverse Reactions: Sulfa (Sulfonamide Antibiotics) [Sulfa(Sulfonamide Antibiotics)] Allergy (Verified 05/11/25 00:30) Home Medications: Trihexyphenidyl HCl 2 mg PO TID 01/03/16 [History] Clonazepam 0.5 mg [Klonopin 0.5 MG] 1 mg PO BID 03/07/16 [History] Gabapentin [Neurontin] 600 mg PO TID 03/07/16 [History] Nabumetone [Relafen] 500 mg PO BID 06/30/22 [History] Ibuprofen 800 mg PO Q8HPRN PRN 07/30/22 [History] Tizanidine HCl 2 mg PO Q8H 08/24/23 [History] Hx Tetanus, Diphtheria Vaccination/Date Given: Yes Hx Influenza Vaccination/Date Given: No Hx Pneumococcal Vaccination/Date Given: No Travel Risk - International Travel Have you traveled outside of the country in past 3 weeks: No - Emerging Infectious Disease Are you exhibiting symptoms associated with any current EIDs: No Symptoms: Abdominal Pain - Review of Systems All Other Systems: Reviewed and Negative - Past Medical History Pertinent Past Medical History: Yes Neurological History: No Pertinent History ENT History: No Pertinent History Cardiac History: No Pertinent History Respiratory History: No Pertinent History Endocrine Medical History: No Pertinent History Musculoskeletal History: Other GI Medical History: No Pertinent History History: No Pertinent History Psycho-Social History: Anxiety Female Reproductive Disorders: Abnormal Uterine Bleeding, Menstrual Problems, Other Other Medical History: DYSTONIA DISORDER, Patient is deaf - Past Surgical History Past Surgical History: Yes Neuro Surgical History: No Pertinent History Cardiac: No Pertinent History Respiratory: No Pertinent History Gastrointestinal: No Pertinent History Genitourinary: No Pertinent History Musculoskeletal: No Pertinent History Female Surgical History: Section, Tubal Ligation, Other Other Surgical History: COCHL. EAR IMPLANT - Female History Hx Last Menstrual Period: NONE Hx Now: No - Social History Smoking Status: Former smoker How long have you smoked: 25 Exposure to second hand smoke: Yes Drug Use: none - Social Determinants of Health Will the patient participate in the screening: Declined to provide - Nursing Vital Signs Nursing Vital Signs: Initial Vital Signs Temperature 97.6 F 05/11/25 00:23 Pulse Rate 87 05/11/25 00:23 Respiratory Rate 20 05/11/25 00:23 Blood Pressure 129/80 05/11/25 00:23 O2 Sat by Pulse Oximetry 96 05/11/25 00:23 Pain Scale Pain Intensity 5 - Physical Exam General Appearance: no apparent distress, alert Eye Exam: PERRL/EOMI, eyes nml inspection Ears, Nose, Throat Exam: normal ENT inspection, moist mucous membranes Neck Exam: normal inspection, full range of motion Respiratory Exam: normal breath sounds, airway intact, diminished breath sounds, rhonchi, No respiratory distress Cardiovascular Exam: regular rate/rhythm, normal heart sounds, normal peripheral pulses Gastrointestinal/Abdomen Exam: soft, normal bowel sounds, No tenderness, No mass Back Exam: normal inspection, normal range of motion, No CVA tenderness, No vertebral tenderness Extremity Exam: normal inspection, normal range of motion, pelvis stable Neurologic Exam: alert, oriented x 3, cooperative, normal mood/affect, sensation nml, No motor deficits, No facial droop, No abnormal gandy dancer II-XII Skin Exam: normal color, warm, dry, No rash Lymphatic Exam: No adenopathy SpO2 Interpretation: normal SpO2: 96 O2 Delivery: Room Air - Course Nursing assessment & vital signs reviewed: Yes - Radiology Exams Chest X-ray Interpretation: Teleradiologist Report (No acute findings. This is a preliminary read. Formal read pending) Ordered Tests: Active Orders 24 hr Category Date Time Status Principal Trainer STAT Care 05/11/25 01:38 Active IV Insertion STAT Care 05/11/25 01:37 Active Pulse Oximetry (ED) STAT Care 05/11/25 01:37 Active CHEST 1 VIEW (PORTABLE) Stat Exams 05/11/25 02:38 Taken BLOOD CULTURE Stat Lab 05/11/25 01:55 Received CBC W DIFF Stat Lab 05/11/25 01:45 Completed CMP Stat Lab 05/11/25 01:45 Completed D-DIMER QUANTITATIVE Stat Lab 05/11/25 01:45 Completed TROPONIN Q4H Lab 05/11/25 01:45 Completed TROPONIN Q4H Lab 05/11/25 05:45 Ordered TROPONIN Q4H Lab 05/11/25 09:45 Ordered Respiratory Therapy Assessment DAILY RT 05/11/25 03:08 Active Medication Summary Discontinued Medications Generic Name Dose Route Start Last Admin Trade Name Freq PRN Reason Stop Dose Admin Albuterol/Ipratropium 3 ml 05/11/25 02:38 05/11/25 03:08 Ipratropium/Albuterol Sulfate 3 Ml Ampul.Neb IH 05/11/25 02:39 3 ml STAT ONE Administration Albuterol/Ipratropium Confirm 05/11/25 02:55 Ipratropium/Albuterol Sulfate 3 Ml Ampul.Neb Administered 05/11/25 02:56 Dose 3 ml IH .STK-MED ONE Methylprednisolone Sodium 0 mg 05/11/25 02:38 05/11/25 03:10 Succinate 80 mg/ Sterile Water IV 05/11/25 02:39 80 mg 2 ml STAT ONE Administration Methylprednisolone Sodium Succinate Confirm 05/11/25 03:09 Methylprednis Sod Succ 125 Mg/2 Ml Vial Administered 05/11/25 03:10 Dose 125 mg .ROUTE .STK-MED ONE Sterile Water Confirm 05/11/25 03:09 Water For Injection,Sterile 10 Ml Vial Administered 05/11/25 03:10 Dose 10 ml IJ .[facility]-MED ONE Lab/Rad Data: Laboratory Result Diagrams 05/11/25 01:45 05/11/25 01:45 Laboratory Results 05/11/25 05/11/25 05/11/25 Range/Units 01:55 01:45 01:45 WBC (3.98-10.04) x10^3/uL RBC (3.93-5.22) x10^6/uL Hgb (11.2-15.7) g/dL Hct (34.1-44.9) % MCV (79.4-94.8) fL MCH (25.6-32.2) pg MCHC (32.2-35.5) g/dL RDW (11.7-14.4) % Plt Count (182-369) x10^3/uL MPV (9.4-12.3) fL Gran % (34.0-71.1) % Immature Gran % (Auto) (0.001-0.429) % Nucleat RBC Rel Count (0.00-0.2) % Eos # (Auto) (0.04-0.36) x10^3/uL Immature Gran # (Auto) (0.001-0.031) x10^3u/L Absolute Lymphs (auto) (1.18-3.74) x10^3/uL Absolute Monos (auto) (0.24-0.86) x10^3/uL Absolute Nucleated RBC (0.00-0.012) x10^3u/L Lymphocytes % (19.3-51.7) % Monocytes % (4.7-12.5) % Eosinophils % (0.7-5.8) % Basophils % (0.1-1.2) % Absolute Granulocytes (1.56-6.13) x10^3/uL Basophils # (0.01-0.08) x10^3/uL D-Dimer 0.44 (0.0-0.50) mg/L Sodium (135-145) mmol/L Potassium (3.5-5.1) mmol/L Chloride (98-107) mmol/L Carbon Dioxide (22-30) mmol/L Anion Gap (5-15) MEQ/L BUN (7-17) mg/dL Creatinine (0.52-1.04) mg/dL Estimated GFR ML/MIN Glucose (74-106) mg/dL Calcium (8.4-10.2) mg/dL Total Bilirubin (0.2-1.3) mg/dL AST (14-36) U/L ALT (0-35) U/L Alkaline Phosphatase (38-126) U/L Troponin I < 0.012 (0.000-0.033) ng/mL Serum Total Protein (6.3-8.2) g/dL Albumin (3.5-5.0) g/dL Influenza Type A Ag NEGATIVE (NEGATIVE) Influenza Type B Ag NEGATIVE (NEGATIVE) RSV (PCR) NEGATIVE (NEGATIVE) SARS-CoV-2 (PCR) NEGATIVE (NEGATIVE) 05/11/25 05/11/25 Range/Units 01:45 01:45 WBC 9.7 (3.98-10.04) x10^3/uL RBC 4.47 (3.93-5.22) x10^6/uL Hgb 13.5 (11.2-15.7) g/dL Hct 41.7 (34.1-44.9) % MCV 93.3 (79.4-94.8) fL MCH 30.2 (25.6-32.2) pg MCHC 32.4 (32.2-35.5) g/dL RDW 12.2 (11.7-14.4) % Plt Count 318 (182-369) x10^3/uL MPV 10.0 (9.4-12.3) fL Gran % 57.1 (34.0-71.1) % Immature Gran % (Auto) 0.1 (0.001-0.429) % Nucleat RBC Rel Count 0.0 (0.00-0.2) % Eos # (Auto) 0.93 H (0.04-0.36) x10^3/uL Immature Gran # (Auto) 0.01 (0.001-0.031) x10^3u/L Absolute Lymphs (auto) 2.40 (1.18-3.74) x10^3/uL Absolute Monos (auto) 0.64 (0.24-0.86) x10^3/uL Absolute Nucleated RBC 0.00 (0.00-0.012) x10^3u/L Lymphocytes % 24.8 (19.3-51.7) % Monocytes % 6.6 (4.7-12.5) % Eosinophils % 9.6 H (0.7-5.8) % Basophils % 1.8 H (0.1-1.2) % Absolute Granulocytes 5.51 (1.56-6.13) x10^3/uL Basophils # 0.17 H (0.01-0.08) x10^3/uL D-Dimer (0.0-0.50) mg/L Sodium 139 (135-145) mmol/L Potassium 4.1 (3.5-5.1) mmol/L Chloride 103 (98-107) mmol/L Carbon Dioxide 29 (22-30) mmol/L Anion Gap 10.9 (5-15) MEQ/L BUN 11 (7-17) mg/dL Creatinine 0.77 (0.52-1.04) mg/dL Estimated GFR 94.5 ML/MIN Glucose 101 (74-106) mg/dL Calcium 9.4 (8.4-10.2) mg/dL Total Bilirubin 0.10 L (0.2-1.3) mg/dL AST 36 (14-36) U/L ALT 99 H (0-35) U/L Alkaline Phosphatase 96 (38-126) U/L Troponin I (0.000-0.033) ng/mL Serum Total Protein 7.1 (6.3-8.2) g/dL Albumin 4.4 (3.5-5.0) g/dL Influenza Type A Ag (NEGATIVE) Influenza Type B Ag (NEGATIVE) RSV (PCR) (NEGATIVE) SARS-CoV-2 (PCR) (NEGATIVE) - Progress Progress: improved Progress Note: Patient is a 49-year-old female history of anxiety, former smoker presents to our ED for evaluation of cough.. Patient describes chest congestion and cough that is ongoing and spite of azithromycin. Patient has 1 day left of her azithromycin. Physical exam reveals coarse breath sounds. Breath sounds slightly diminished bilaterally equal. Patient ambulated in our ED. No supplemental oxygen. Ambulatory pulse oximetry remained at 95% with normal spontaneous breathing no labored breathing or respiratory distress. Chest x-ray completed. No obvious infiltrates or consolidation. However this is a preliminary read. Formal read pending. Laboratory workup completed. No leukocytosis. D-dimer negative. Troponin negative. Patient requested medication for her headache. However patient neurologically normal. No focal or lateralizing symptomology. Patient received gram of acetaminophen. Additionally, patient received dose of Solu-Medrol and a DuoNeb breathing treatment. Patient states her breathing significantly improved. Patient reassessed. Lungs appear clear at this time. Vitals are within normal limits. O2 sat normal at rest. I considered administering a dose of antibiotics. However patient is currently on azithromycin. There are no obvious signs of infection at this time. Patient to complete the azithromycin dose. Chest x-ray appears normal to me however formal read pending. Patient afebrile. WBC is 9.7/normal. We will hold off on additional antibiotics. I will discharge patient home with a prescription for prednisone and an albuterol inhaler. Patient agrees to follow-up with her primary care doctor within 48 hours for reevaluation. Patient states she feels well at this time. Patient states she is ready for discharge. She voices no other complaints or concerns at this time. We intended to discharge patient home with an albuterol inhaler however we do not have any inhalers immediately available to provide patient. A prescription forwarded to patient's pharmacy instead History obtained from patient. Differential diagnosis includes bronchitis, pneumonia, PE Dr. Matthews independently reviewed and interpreted the chest x-ray. This is a preliminary read. Formal read pending. Portions of this note were created with voice recognition technology. There may be grammatical, spelling, punctuation or sound alike errors Complexity of problem addressed is moderate acute complicated. No critical care time. Complexity of data reviewed and analyzed is moderate. Test ordered chest reviewed results analyzed and correlated clinically with history and physical exam. Risk of complication and or risk of morbidity/mortality of patient management is moderate. A prescription for prednisone and albuterol inhaler forwarded to patient's pharmacy. Vital stable. Time spent to discharge patient is approximately 15 minutes. Plan of care established for shared decision making. No social determinants of health present to impede follow-up. Portions of this note were created with voice recognition technology. There may be grammatical, spelling, punctuation or sound alike errors 05/11/25 03:40 Counseled pt/family regarding: lab results, diagnosis, need for follow-up, rad results - Departure Departure Disposition: Home Clinical Impression: Bronchitis, Cough Condition: Stable Critical Care Time: No Referrals: ELZBIETA VALERA MD [Primary Care Provider, [facility]] - Follow up/PCP as directed Additional Instructions: Discharge/Care Plan ERICKSON SALGADO was seen on 05/11/25 in the Emergency Room. The patient was counseled regarding Diagnosis,Lab results, Imaging studies, need for follow up and when to return to the Emergency Room. Prescriptions given: Discharge Note I have spoken with the patient and/or caregivers. I have explained the patient's condition, diagnosis and treatment plan based on the information available to me at this time. I have answered the patient's and/or caregiver's questions and addressed any concerns. The patient and/or caregivers have as good understanding of the patient's diagnosis, condition and treatment plan as can be expected at this point. The vital signs have been stable. The patient's condition is stable and appropriate for discharge from the emergency department. The patient will pursue further outpatient evaluation with the primary care physician or other designated or consulting physician as outlined in the discharge instructions. The patient and/or caregivers are agreeable to this plan of care and follow-up instructions have been explained in detail. The patient and/or caregivers have received these instruction. The patient/and or caregivers are aware that any significant change in condition or worsening of symptoms should prompt an immediate return to this or the closest emergency department or call 911. Prescriptions: Prednisone 10 mg [Deltasone 10 mg] 40 mg PO DAILY 3 Days #12 tablet Albuterol 8 gm Mdi Hfa [Ventolin Hfa MDI] 8 gm IH Q4H PRN #1 PRN Reason: Shortness Of Breath
[2025-05-11 01:59] LABS: BASOPHIL % 1.8 % (0.1-1.2); Basophil (Absolute #) 0.17 x10^3/uL (0.01-0.08); Eosinophil (Absolute #) 0.93 x10^3/uL (0.04-0.36); Hematocrit 41.7 % (34.1-44.9); Hemoglobin 13.5 g/dL (11.2-15.7); IMMATURE GRAN # 0.01 x10^3u/L (0.001-0.031); IMMATURE GRAN % 0.1 % (0.001-0.429); Lymphocyte (Absolute #) 2.40 x10^3/uL (1.18-3.74); Mean Corpuscular Hemoglobin 30.2 pg (25.6-32.2); Mean Corpuscular Hgb Concent. 32.4 g/dL (32.2-35.5); Monocyte (Absolute #) 0.64 x10^3/uL (0.24-0.86); NUCLEATED RBC # 0.00 x10^3u/L (0.00-0.012); NUCLEATED RBC % 0.0 % (0.00-0.2); Platelet Count 318 x10^3/uL (182-369); Red Blood Count 4.47 x10^6/uL (3.93-5.22); White Blood Count 9.7 x10^3/uL (3.98-10.04)
[2025-05-11 02:12] LABS: Calcium 9.4 mg/dL (8.4-10.2); Carbon Dioxide 29.0 mmol/L (22-30); Creatinine 1 0.77 mg/dL (0.52-1.04); EST GLOMERULAR FILTRATION RATE 94.5 ML/MIN; Glucose 101.0 mg/dL (74-106); Potassium 4.1 mmol/L (3.5-5.1); SGOT/AST 36.0 U/L (14-36); SGPT/ALT 99.0 U/L (0-35); Total Protein 7.1 g/dL (6.3-8.2)
[2025-05-11 02:37] LABS: INFLUENZA A NEGATIVE (NEGATIVE); INFLUENZA B NEGATIVE (NEGATIVE); RESPIRATORY SYNCTIAL VIRUS NEGATIVE (NEGATIVE); SARS-CoV-2 Xpert Express NEGATIVE (NEGATIVE)
[2025-05-11] MEDS ORDERED: DUONEB 0.5-3 MG/3 ml Neb IH ONE (02:55)
[2025-05-11] MEDS: DUONEB 0.5-3 MG/3 ml Neb IH ONE (03:08)
[2025-05-11] MEDS ORDERED: Sterile H2O 10 ml IJ ONE (03:09)
[2025-05-11] MEDS: solu-MEDROL 80 MG, Sterile H2O 10 ml 2 ML IV ONE (03:10)
[2025-05-11 03:11] VITALS: PULSE 80; RESP 18
[2025-05-11 03:15] VITALS: BP 132/87
[2025-05-11 03:46] VITALS: O2SAT 96
[2025-05-11] MEDS ORDERED: TYLENOL 325 MG ONE (03:49)
[2025-05-11] MEDS: TYLENOL 325 MG PO ONE (03:51)
--- NOTE | 2025-05-11 09:00 | XRAY ---
Indication: Cough. Comparison: May 07, 2025 Portable chest demonstrates normal heart, lungs, and bony thorax again with incidental left lung calcified granuloma.
== END 2025-05-11 04:03 | disposition home or self-care (01) ==
LOC: ED 22:34
DX: J40 Bronchitis, not specified as acute or chronic (principal); R05.1 Acute cough; Z79.52 Long term (current) use of systemic steroids; Z79.899 Other long term (current) drug therapy

== ENCOUNTER 2025-06-19 13:43 | Emergency (ER) | payer OTHER ==
[2025-06-19 14:13] VITALS: TEMP 98.3
[2025-06-19 14:22] LABS: BASOPHIL % 1.2 % (0.1-1.2); Basophil (Absolute #) 0.08 x10^3/uL (0.01-0.08); Eosinophil (Absolute #) 0.54 x10^3/uL (0.04-0.36); Hematocrit 42.3 % (34.1-44.9); Hemoglobin 13.8 g/dL (11.2-15.7); IMMATURE GRAN # 0.01 x10^3u/L (0.001-0.031); IMMATURE GRAN % 0.2 % (0.001-0.429); Lymphocyte (Absolute #) 0.99 x10^3/uL (1.18-3.74); Mean Corpuscular Hemoglobin 29.3 pg (25.6-32.2); Mean Corpuscular Hgb Concent. 32.6 g/dL (32.2-35.5); Monocyte (Absolute #) 0.39 x10^3/uL (0.24-0.86); NUCLEATED RBC # 0.00 x10^3u/L (0.00-0.012); NUCLEATED RBC % 0.0 % (0.00-0.2); Platelet Count 351 x10^3/uL (182-369); Red Blood Count 4.71 x10^6/uL (3.93-5.22); White Blood Count 6.6 x10^3/uL (3.98-10.04)
--- NOTE | 2025-06-19 14:32 | ERPHSYRPT ---
- History of Present Illness Patient Subjective Stated Complaint: "here for chest pain and cough" Triage Nursing Assessment: Patient and poor historians. states patient c/o chest pain and cough for one week. No cardiac history. Patient walked in. No acute distress noted. Monitor shows NSR. No n/v. color good. C/o headache also. No resp distress noted. Patient states she took prescribed albuteral inhaler prior to coming to ER today. Physician History: Chest pain and cough, history obtained per the , patient longstanding history of chronic bronchitis, she has been seen numerous times for the same complaints in the past, she continues to vape, no recent change in any medications, she does not use oxygen at home, no nausea or vomiting Timing/Duration: week(s) (1) Activities at Onset: none Quality: tightness Severity of Pain-Max: moderate Severity of Pain-Current: moderate Modifying Factors: Improves With: nothing Associated Symptoms: cough Aspirin Treatment Today: no aspirin today Allergies/Adverse Reactions: Sulfa (Sulfonamide Antibiotics) [Sulfa(Sulfonamide Antibiotics)] Allergy (Verified 05/11/25 00:30) Hx Tetanus, Diphtheria Vaccination/Date Given: Yes Hx Influenza Vaccination/Date Given: No Hx Pneumococcal Vaccination/Date Given: No Immunizations Up to Date: No Travel Risk - International Travel Have you traveled outside of the country in past 3 weeks: No - Emerging Infectious Disease Are you exhibiting symptoms associated with any current EIDs: No Symptoms: Abdominal Pain - Past Medical History Pertinent Past Medical History: Yes Neurological History: No Pertinent History ENT History: No Pertinent History Cardiac History: No Pertinent History Respiratory History: No Pertinent History Endocrine Medical History: No Pertinent History Musculoskeletal History: Other GI Medical History: No Pertinent History History: No Pertinent History Psycho-Social History: Anxiety Female Reproductive Disorders: Abnormal Uterine Bleeding, Menstrual Problems, Other Other Medical History: DYSTONIA DISORDER, Patient is deaf - Past Surgical History Past Surgical History: Yes Neuro Surgical History: No Pertinent History Cardiac: No Pertinent History Respiratory: No Pertinent History Gastrointestinal: No Pertinent History Genitourinary: No Pertinent History Musculoskeletal: No Pertinent History Female Surgical History: Section, Tubal Ligation, Other Other Surgical History: COCHL. EAR IMPLANT - Female History Hx Last Menstrual Period: NONE Hx Now: No - Social History Smoking Status: Current every day smoker How long have you smoked: ? Drug Use: none - Social Determinants of Health Will the patient participate in the screening: Yes Do you worry about a steady place to live?: Yes Do you have any problems with any of the following?: No known problems In the past 12 months,have you had to go without utilities?: No Transportation Issues: No Has anyone in your support network made you feel unsafe?: No Have you or anyone in your house had to go w/o enough food: No - Nursing Vital Signs Nursing Vital Signs: Initial Vital Signs Temperature 98.3 F 06/19/25 13:58 Pulse Rate 91 H 06/19/25 13:58 Blood Pressure 118/73 06/19/25 13:58 O2 Sat by Pulse Oximetry 99 06/19/25 13:58 Pain Scale Pain Intensity 10 - Physical Exam General Appearance: no apparent distress, alert Eye Exam: PERRL/EOMI, eyes nml inspection Ears, Nose, Throat Exam: normal ENT inspection, moist mucous membranes Neck Exam: normal inspection, non-tender, supple, full range of motion Respiratory Exam: normal breath sounds, lungs clear, No respiratory distress Cardiovascular Exam: regular rate/rhythm, normal heart sounds Gastrointestinal/Abdomen Exam: soft, No tenderness, No mass Back Exam: normal inspection, No CVA tenderness, No vertebral tenderness Extremity Exam: normal inspection, normal range of motion Neurologic Exam: alert, oriented x 3, cooperative, normal mood/affect, sensation nml, No motor deficits Skin Exam: normal color, warm, dry SpO2 Interpretation: normal SpO2: 99 - Course EKG Interpreted by Me: Sinus Rhythm, NORMAL AXIS, NORMAL INTERVALS, NORMAL QRS, NORMAL ST-T Ordered Tests: Active Orders 24 hr Category Date Time Status EKG-ER Only STAT Care 06/19/25 14:14 Active CHEST 1 VIEW (PORTABLE) Stat Exams 06/19/25 14:16 Completed CBC W DIFF Stat Lab 06/19/25 14:15 Completed CMP Stat Lab 06/19/25 14:15 Results TROPONIN Stat Lab 06/19/25 14:15 Results Respiratory Therapy Assessment DAILY RT 06/19/25 14:39 Active Medication Summary Discontinued Medications Generic Name Dose Route Start Last Admin Trade Name Freq PRN Reason Stop Dose Admin Acetaminophen 1,000 mg 06/19/25 15:18 Acetaminophen 500 Mg Tablet PO 06/19/25 15:19 STAT STA Al Hydrox/Mg Hydrox/Simethicone 30 ml 06/19/25 15:19 Mag Hydrox/Al Hydrox/Simeth 30 Ml Udcup PO 06/19/25 15:20 STAT ONE Albuterol/Ipratropium 3 ml 06/19/25 14:21 06/19/25 14:36 Ipratropium/Albuterol Sulfate 3 Ml Ampul.Neb IH 06/19/25 14:22 3 ml STAT ONE Administration Albuterol/Ipratropium Confirm 06/19/25 14:34 Ipratropium/Albuterol Sulfate 3 Ml Ampul.Neb Administered 06/19/25 14:35 Dose 3 ml IH .STK-MED ONE Lab/Rad Data: Laboratory Result Diagrams 06/19/25 14:15 06/19/25 14:15 Laboratory Results 06/19/25 06/19/25 Range/Units 14:15 14:15 WBC 6.6 (3.98-10.04) x10^3/uL RBC 4.71 (3.93-5.22) x10^6/uL Hgb 13.8 (11.2-15.7) g/dL Hct 42.3 (34.1-44.9) % MCV 89.8 (79.4-94.8) fL MCH 29.3 (25.6-32.2) pg MCHC 32.6 (32.2-35.5) g/dL RDW 12.8 (11.7-14.4) % Plt Count 351 (182-369) x10^3/uL MPV 10.0 (9.4-12.3) fL Gran % 69.5 (34.0-71.1) % Immature Gran % (Auto) 0.2 (0.001-0.429) % Nucleat RBC Rel Count 0.0 (0.00-0.2) % Eos # (Auto) 0.54 H (0.04-0.36) x10^3/uL Immature Gran # (Auto) 0.01 (0.001-0.031) x10^3u/L Absolute Lymphs (auto) 0.99 L (1.18-3.74) x10^3/uL Absolute Monos (auto) 0.39 (0.24-0.86) x10^3/uL Absolute Nucleated RBC 0.00 (0.00-0.012) x10^3u/L Lymphocytes % 15.0 L (19.3-51.7) % Monocytes % 5.9 (4.7-12.5) % Eosinophils % 8.2 H (0.7-5.8) % Basophils % 1.2 (0.1-1.2) % Absolute Granulocytes 4.61 (1.56-6.13) x10^3/uL Basophils # 0.08 (0.01-0.08) x10^3/uL Sodium Pending Sodium Direct 141 (138-146) mmol/L Potassium 3.6 (3.5-4.9) mmol/L Chloride 105 (98-109) mmol/L Carbon Dioxide 26 (24-29) mmol/L Anion Gap Pending BUN Pending Venous BUN 14 (8-26) mg/dL Creatinine 0.9 (0.6-1.3) mg/dL Estimated GFR Pending Glucose 110 H (70-105) mg/dL Calcium Pending Ionized Calcium 1.19 (1.12-1.32) mmol/L Total Bilirubin Pending AST Pending ALT Pending Alkaline Phosphatase Pending Troponin I Pending Troponin I High Sens < 2.90 (<2.9-14) ng/mL Serum Total Protein Pending Albumin Pending - Progress Progress Note: 06/19/25 15:21 discussed results, outpatient follow up - Departure Departure Disposition: Home Clinical Impression: Bronchitis, Esophagitis Condition: Stable Critical Care Time: No Referrals: ELZBIETA VALERA MD [Primary Care Provider, [facility]] - Follow up with PCP 4 days Instructions: Esophagitis, Bronchitis in adults - ED discharge instructions Additional Instructions: continue home medications
[2025-06-19 14:34] VITALS: RESP 16
[2025-06-19] MEDS ORDERED: DUONEB 0.5-3 MG/3 ml Neb IH ONE (14:34)
[2025-06-19] MEDS: DUONEB 0.5-3 MG/3 ml Neb IH ONE (14:36)
--- NOTE | 2025-06-19 14:37 | XRAY ---
Indication: Chest pain. Comparison: May 11, 2025 Portable chest remains inflated and clear. Heart not enlarged. Bony thorax intact. No new/acute findings.
[2025-06-19 14:43] VITALS: PULSE 88
[2025-06-19 14:43] LABS: ISTAT BUN 14 mg/dL (8-26); ISTAT CL 105 mmol/L (98-109); ISTAT CO2 26 mmol/L (24-29); ISTAT CREA 0.9 mg/dL (0.6-1.3); ISTAT GLUC 110 mg/dL (70-105); ISTAT K 3.6 mmol/L (3.5-4.9); ISTAT NA 141 mmol/L (138-146); ISTAT iCA 1.19 mmol/L (1.12-1.32)
[2025-06-19] MEDS ORDERED: MAALOX ES 30 ML UNIT DOSE ONE (15:21)
[2025-06-19] MEDS ORDERED: TYLENOL EXTRA STRENGTH 500 MG ONE (15:21)
[2025-06-19] MEDS: MAALOX ES 30 ML UNIT DOSE PO ONE (15:22)
[2025-06-19] MEDS: TYLENOL EXTRA STRENGTH 500 MG PO STA (15:22)
[2025-06-19 15:24] VITALS: O2SAT 99
[2025-06-19 15:30] LABS: Calcium 9.1 mg/dL (8.4-10.2); Carbon Dioxide 25 mmol/L (22-30); Creatinine 1 0.75 mg/dL (0.52-1.04); EST GLOMERULAR FILTRATION RATE 97.5 ML/MIN; Glucose 108 mg/dL (74-106); Potassium 3.7 mmol/L (3.5-5.1); SGOT/AST 71 U/L (14-36); SGPT/ALT 64 U/L (0-35); TROPONIN < 0.012 ng/mL (0.000-0.033); Total Protein 7.3 g/dL (6.3-8.2)
[2025-06-19 15:33] VITALS: BP 106/69
== END 2025-06-19 15:38 | disposition home or self-care (01) ==
LOC: ED 13:43
DX: J40 Bronchitis, not specified as acute or chronic (principal); K20.90 Esophagitis, unspecified without bleeding; R07.9 Chest pain, unspecified; R05.9 Cough, unspecified; Z72.0 Tobacco use; Z59.819 Housing instability, housed unspecified

== ENCOUNTER 2025-06-21 18:45 | Emergency (ER) | payer OTHER ==
[2025-06-21] MEDS ORDERED: DUONEB 0.5-3 MG/3 ml Neb IH ONE (19:07)
[2025-06-21] MEDS: DUONEB 0.5-3 MG/3 ml Neb IH SCH (19:14)
[2025-06-21 19:15] VITALS: TEMP 97.4
[2025-06-21 19:30] LABS: BASOPHIL % 0.8 % (0.1-1.2); Basophil (Absolute #) 0.08 x10^3/uL (0.01-0.08); Eosinophil (Absolute #) 1.33 x10^3/uL (0.04-0.36); Hematocrit 41.0 % (34.1-44.9); Hemoglobin 13.3 g/dL (11.2-15.7); IMMATURE GRAN # 0.03 x10^3u/L (0.001-0.031); IMMATURE GRAN % 0.3 % (0.001-0.429); Lymphocyte (Absolute #) 2.12 x10^3/uL (1.18-3.74); Mean Corpuscular Hemoglobin 30.0 pg (25.6-32.2); Mean Corpuscular Hgb Concent. 32.4 g/dL (32.2-35.5); Monocyte (Absolute #) 0.89 x10^3/uL (0.24-0.86); NUCLEATED RBC # 0.00 x10^3u/L (0.00-0.012); NUCLEATED RBC % 0.0 % (0.00-0.2); Platelet Count 330 x10^3/uL (182-369); Red Blood Count 4.44 x10^6/uL (3.93-5.22); White Blood Count 10.2 x10^3/uL (3.98-10.04)
--- NOTE | 2025-06-21 19:31 | ERPHSYRPT ---
- History of Present Illness Time Seen by Provider: 06/21/25 19:25 Source: patient Exam Limitations: no limitations Patient Subjective Stated Complaint: patient course wheezing, wet cough x 5 days Triage Nursing Assessment: patient arrives to ed via ems, patient able to transfer over to ed cot without complication, patient alert and oriented x 4, skin pwd, patient afebrile, patient tachypenic with respirations around 24-30, patient has course wheezing throughout all lobes, patient has intermittent cough with yellow phlegm, oxygen saturation wnl at 97% on room air upon arrival Physician History: Patient 49-year-old female history of anxiety presents to our ED via EMS for evaluation of shortness of breath and cough. Shortness of breath began today. Patient was tachypneic upon arrival. Respiratory rate was approximately 24 to 30/min. Patient has a speech impediment. Communication is difficult. patient deaf However patient was wheezing on physical exam. Patient admits to intermittent cough productive of yellow sputum. However oxygenation 97% upon arrival. No chest pain. No nausea vomiting or diaphoresis. Patient voices no other complaints or concerns at this time. Portions of this note were created with voice recognition technology. There may be grammatical, spelling, punctuation or sound alike errors Timing/Duration: today Activities at Onset: activity Severity of Dyspnea-Max: moderate Severity of Dyspnea-Current: mild Possible Cause: occasional episodes Modifying Factors: Improves With: activity Associated Symptoms: cough Allergies/Adverse Reactions: Sulfa (Sulfonamide Antibiotics) [Sulfa(Sulfonamide Antibiotics)] Allergy (Verified 06/21/25 19:10) Hx Tetanus, Diphtheria Vaccination/Date Given: Yes Hx Influenza Vaccination/Date Given: No Hx Pneumococcal Vaccination/Date Given: No Travel Risk - International Travel Have you traveled outside of the country in past 3 weeks: No - Emerging Infectious Disease Are you exhibiting symptoms associated with any current EIDs: No Symptoms: Abdominal Pain - Review of Systems All Other Systems: Reviewed and Negative - Past Medical History Pertinent Past Medical History: Yes Neurological History: No Pertinent History ENT History: No Pertinent History Cardiac History: No Pertinent History Respiratory History: No Pertinent History Endocrine Medical History: No Pertinent History Musculoskeletal History: Other GI Medical History: No Pertinent History History: No Pertinent History Psycho-Social History: Anxiety Female Reproductive Disorders: Abnormal Uterine Bleeding, Menstrual Problems, Other Other Medical History: DYSTONIA DISORDER, Patient is deaf - Past Surgical History Past Surgical History: Yes Neuro Surgical History: No Pertinent History Cardiac: No Pertinent History Respiratory: No Pertinent History Gastrointestinal: No Pertinent History Genitourinary: No Pertinent History Musculoskeletal: No Pertinent History Female Surgical History: Section, Tubal Ligation, Other Other Surgical History: COCHL. EAR IMPLANT - Female History Hx Last Menstrual Period: NONE Hx Now: No - Social History Smoking Status: Former smoker How long have you smoked: ? Exposure to second hand smoke: Yes Drug Use: none - Social Determinants of Health Will the patient participate in the screening: Declined to provide - Nursing Vital Signs Nursing Vital Signs: Initial Vital Signs Temperature 97.4 F 06/21/25 18:46 Pulse Rate 114 H 06/21/25 18:46 Respiratory Rate 29 H 06/21/25 18:46 Blood Pressure 147/88 06/21/25 18:46 O2 Sat by Pulse Oximetry 97 06/21/25 18:46 Pain Scale Pain Intensity 4 - Physical Exam General Appearance: no apparent distress, alert Eye Exam: PERRL/EOMI Neck Exam: normal inspection, supple Respiratory Exam: wheezing Cardiovascular/Chest Exam: normal heart sounds, regular rate/rhythm Abdominal/Gastrointestinal Exam: soft, No tenderness, No distention, No mass Extremity Exam: non-tender, normal range of motion, normal inspection Neurologic Exam: alert, oriented x 3, cooperative, vendor representatives II-XII nml as tested, sensation nml, No motor deficits Skin Exam: normal color, warm, No dry Lymphatic Exam: No adenopathy SpO2 Interpretation: normal SpO2: 97 O2 Delivery: Room Air - Course Nursing assessment & vital signs reviewed: Yes EKG Interpreted by Me: RATE (100), Sinus Tach, NORMAL AXIS, NORMAL INTERVALS, NORMAL QRS - Radiology Exams Chest X-ray Interpretation: Interpreted by me (Right middle lobe subtle infiltrate. Preliminary read. Formal read pending) Ordered Tests: Active Orders 24 hr Category Date Time Status Facilities Officer STAT Care 06/21/25 19:24 Completed EKG-ER Only STAT Care 06/21/25 19:23 Completed IV Insertion STAT Care 06/21/25 19:23 Completed Pulse Oximetry (ED) STAT Care 06/21/25 19:23 Completed CHEST 1 VIEW (PORTABLE) Stat Exams 06/21/25 20:44 Taken BLOOD CULTURE Stat Lab 06/21/25 19:40 Received CBC W DIFF Stat Lab 06/21/25 18:50 Completed CMP Stat Lab 06/21/25 18:50 Completed D-DIMER QUANTITATIVE Stat Lab 06/21/25 18:50 Completed TROPONIN Q4H Lab 06/21/25 18:50 Completed Respiratory Therapy Assessment DAILY RT 06/21/25 19:14 Completed Medication Summary Discontinued Medications Generic Name Dose Route Start Last Admin Trade Name Daveq PRN Reason Stop Dose Admin Albuterol/Ipratropium Confirm 06/21/25 19:07 Ipratropium/Albuterol Sulfate 3 Ml Ampul.Neb Administered 06/21/25 19:08 Dose 3 ml IH .STK-MED ONE Albuterol/Ipratropium 3 ml 06/21/25 07:00 06/21/25 19:14 Ipratropium/Albuterol Sulfate 3 Ml Ampul.Neb IH 06/27/25 07:00 3 ml BID NATHALY Administration Methylprednisolone Sodium 0 mg 06/21/25 19:30 06/21/25 19:41 Succinate 125 mg/ Sterile IV 06/21/25 19:31 125 mg Water 2 ml STAT ONE Administration Lab/Rad Data: Laboratory Result Diagrams 06/21/25 18:50 06/21/25 18:50 Laboratory Results 06/21/25 06/21/25 06/21/25 Range/Units 19:42 18:50 18:50 WBC (3.98-10.04) x10^3/uL RBC (3.93-5.22) x10^6/uL Hgb (11.2-15.7) g/dL Hct (34.1-44.9) % MCV (79.4-94.8) fL MCH (25.6-32.2) pg MCHC (32.2-35.5) g/dL RDW (11.7-14.4) % Plt Count (182-369) x10^3/uL MPV (9.4-12.3) fL Gran % (34.0-71.1) % Immature Gran % (Auto) (0.001-0.429) % Nucleat RBC Rel Count (0.00-0.2) % Eos # (Auto) (0.04-0.36) x10^3/uL Immature Gran # (Auto) (0.001-0.031) x10^3u/L Absolute Lymphs (auto) (1.18-3.74) x10^3/uL Absolute Monos (auto) (0.24-0.86) x10^3/uL Absolute Nucleated RBC (0.00-0.012) x10^3u/L Lymphocytes % (19.3-51.7) % Monocytes % (4.7-12.5) % Eosinophils % (0.7-5.8) % Basophils % (0.1-1.2) % Absolute Granulocytes (1.56-6.13) x10^3/uL Basophils # (0.01-0.08) x10^3/uL D-Dimer 0.41 (0.0-0.50) mg/L Sodium (135-145) mmol/L Potassium (3.5-5.1) mmol/L Chloride (98-107) mmol/L Carbon Dioxide (22-30) mmol/L Anion Gap (5-15) MEQ/L BUN (7-17) mg/dL Creatinine (0.52-1.04) mg/dL Estimated GFR ML/MIN Glucose (74-106) mg/dL Calcium (8.4-10.2) mg/dL Total Bilirubin (0.2-1.3) mg/dL AST (14-36) U/L ALT (0-35) U/L Alkaline Phosphatase (38-126) U/L Troponin I < 0.012 (0.000-0.033) ng/mL Serum Total Protein (6.3-8.2) g/dL Albumin (3.5-5.0) g/dL Influenza Type A Ag NEGATIVE (NEGATIVE) Influenza Type B Ag NEGATIVE (NEGATIVE) RSV (PCR) NEGATIVE (NEGATIVE) SARS-CoV-2 (PCR) NEGATIVE (NEGATIVE) 06/21/25 06/21/25 Range/Units 18:50 18:50 WBC 10.2 H (3.98-10.04) x10^3/uL RBC 4.44 (3.93-5.22) x10^6/uL Hgb 13.3 (11.2-15.7) g/dL Hct 41.0 (34.1-44.9) % MCV 92.3 (79.4-94.8) fL MCH 30.0 (25.6-32.2) pg MCHC 32.4 (32.2-35.5) g/dL RDW 13.2 (11.7-14.4) % Plt Count 330 (182-369) x10^3/uL MPV 10.4 (9.4-12.3) fL Gran % 56.3 (34.0-71.1) % Immature Gran % (Auto) 0.3 (0.001-0.429) % Nucleat RBC Rel Count 0.0 (0.00-0.2) % Eos # (Auto) 1.33 H (0.04-0.36) x10^3/uL Immature Gran # (Auto) 0.03 (0.001-0.031) x10^3u/L Absolute Lymphs (auto) 2.12 (1.18-3.74) x10^3/uL Absolute Monos (auto) 0.89 H (0.24-0.86) x10^3/uL Absolute Nucleated RBC 0.00 (0.00-0.012) x10^3u/L Lymphocytes % 20.8 (19.3-51.7) % Monocytes % 8.7 (4.7-12.5) % Eosinophils % 13.1 H (0.7-5.8) % Basophils % 0.8 (0.1-1.2) % Absolute Granulocytes 5.73 (1.56-6.13) x10^3/uL Basophils # 0.08 (0.01-0.08) x10^3/uL D-Dimer (0.0-0.50) mg/L Sodium 137 (135-145) mmol/L Potassium 4.3 (3.5-5.1) mmol/L Chloride 106 (98-107) mmol/L Carbon Dioxide 23 (22-30) mmol/L Anion Gap 12.3 (5-15) MEQ/L BUN 14 (7-17) mg/dL Creatinine 0.61 (0.52-1.04) mg/dL Estimated GFR 109.5 ML/MIN Glucose 87 (74-106) mg/dL Calcium 8.9 (8.4-10.2) mg/dL Total Bilirubin 0.30 (0.2-1.3) mg/dL AST 194 H (14-36) U/L ALT 194 H (0-35) U/L Alkaline Phosphatase 108 (38-126) U/L Troponin I (0.000-0.033) ng/mL Serum Total Protein 7.0 (6.3-8.2) g/dL Albumin 4.3 (3.5-5.0) g/dL Influenza Type A Ag (NEGATIVE) Influenza Type B Ag (NEGATIVE) RSV (PCR) (NEGATIVE) SARS-CoV-2 (PCR) (NEGATIVE) - Progress Progress: improved Air Movement: good Progress Note: Patient 49-year-old female history of anxiety presents to our ED via EMS for evaluation of shortness of breath. Shortness of breath began today. Patient was tachypneic upon arrival Physical exam reveals audible wheezing. Wheezing has since cleared. Patient received Solu-Medrol and a breathing treatment. Chest x-ray shows possible right lower lobe infiltrate. Patient will be discharged home with albuterol inhaler, prednisone prescription for Augmentin and azithromycin. Patient ambulated throughout our ED. O2 sat maintained at 97%. Patient felt well. No shortness of breath. Vital stable. Patient voices no other complaints or concerns at this time. She agrees to follow-up with primary care doctor within 48 hours for reevaluation. Portions of this note were created with voice recognition technology. There may be grammatical, spelling, punctuation or sound alike errors History obtained from EMS and patient. Differential diagnosis includes bronchitis, pneumonia, asthma exacerbation/reactive airway Dr. Matthews independently reviewed and interpreted the chest x-ray this is a preliminary read. Formal read pending. Complexity of problems addressed is moderate acute complicated. No critical care time. Complexity of data reviewed and analyzed is extensive. Test ordered chest reviewed results analyzed and correlated clinically with history and physical exam. Risk of complication and or risk of morbidity/mortality of patient management is moderate. A prescription for Augmentin, is on, azithromycin and a albuterol inhaler forwarded to patient's pharmacy. Vital stable. Time spent to discharge patient approximately 20 minutes. Plan of care established for shared decision making. No social determinants of health present to impede follow-up. Portions of this note were created with voice recognition technology. There may be grammatical, spelling, punctuation or sound alike errors 06/21/25 21:18 Blood Culture(s) Obtained: Yes Antibiotics given: Yes Counseled pt/family regarding: lab results, diagnosis - Departure Departure Disposition: Home Clinical Impression: Bronchitis, Cough Condition: Stable Critical Care Time: No Referrals: ELZBIETA VALERA MD [Primary Care Provider, [facility]] - Follow up/PCP as directed Instructions: Bronchitis in adults - ED discharge instructions, Asthma in adults - ED discharge instructions Additional Instructions: Discharge/Care Plan ERICKSON SALGADO was seen on 06/21/25 in the Emergency Room. The patient was counseled regarding Diagnosis,Lab results, Imaging studies, need for follow up and when to return to the Emergency Room. Prescriptions given: Discharge Note I have spoken with the patient and/or caregivers. I have explained the patient's condition, diagnosis and treatment plan based on the information available to me at this time. I have answered the patient's and/or caregiver's questions and addressed any concerns. The patient and/or caregivers have as good understanding of the patient's diagnosis, condition and treatment plan as can be expected at this point. The vital signs have been stable. The patient's condition is stable and appropriate for discharge from the emergency department. The patient will pursue further outpatient evaluation with the primary care physician or other designated or consulting physician as outlined in the discharge instructions. The patient and/or caregivers are agreeable to this plan of care and follow-up instructions have been explained in detail. The patient and/or caregivers have received these instruction. The patient/and or caregivers are aware that any significant change in condition or worsening of symptoms should prompt an immediate return to this or the closest emergency department or call 911. Prescriptions: Amox Tr/Potass Clav. 875 mg [Augmentin 875-125 Tablet] 875 mg PO BID 7 Days #14 tablet Prednisone 10 mg [Deltasone 10 mg] 40 mg PO DAILY 3 Days #12 tablet Albuterol 8 gm Mdi Hfa [Ventolin Hfa MDI] 8 gm IH Q4-6HPRN PRN #1 inhaler PRN Reason: Shortness Of Breath/Wheezing Azithromycin 250 mg [Zithromax 250 MG TABLET] 250 mg PO ZPACK #6 tablet
[2025-06-21] MEDS: solu-MEDROL 125 MG, Sterile H2O 10 ml 2 ML IV ONE (19:41)
[2025-06-21 19:59] LABS: Calcium 8.9 mg/dL (8.4-10.2); Carbon Dioxide 23.0 mmol/L (22-30); Creatinine 1 0.61 mg/dL (0.52-1.04); EST GLOMERULAR FILTRATION RATE 109.5 ML/MIN; Glucose 87.0 mg/dL (74-106); Potassium 4.3 mmol/L (3.5-5.1); SGOT/AST 194.0 U/L (14-36); SGPT/ALT 194.0 U/L (0-35); Total Protein 7.0 g/dL (6.3-8.2)
[2025-06-21 20:31] LABS: INFLUENZA A NEGATIVE (NEGATIVE); INFLUENZA B NEGATIVE (NEGATIVE); RESPIRATORY SYNCTIAL VIRUS NEGATIVE (NEGATIVE); SARS-CoV-2 Xpert Express NEGATIVE (NEGATIVE)
[2025-06-21 21:05] VITALS: BP 137/77; PULSE 103; RESP 17
[2025-06-21 21:17] VITALS: O2SAT 97
--- NOTE | 2025-06-22 08:56 | XRAY ---
Indication: Short of breath. Comparison: June 19, 2025 Portable chest now demonstrates subtle right infrahilar infiltrate versus atelectasis. Remaining heart, lungs, and bony thorax normal.
== END 2025-06-21 21:33 | disposition home or self-care (01) ==
LOC: ED 18:45
DX: J40 Bronchitis, not specified as acute or chronic (principal); R05.1 Acute cough; R06.02 Shortness of breath; Z79.52 Long term (current) use of systemic steroids; Z79.899 Other long term (current) drug therapy

== ENCOUNTER 2025-06-21 19:03 | Emergency (ER) | payer OTHER ==
[~2025-06-21 19:03] MED LIST: DUONEB 0.5-3 MG/3 ml Neb IH SCH
[2025-06-21] MEDS ORDERED: Sterile H2O 10 ml IJ ONE (19:37)
== END 2025-06-21 19:46 | disposition left against medical advice (07) ==
LOC: ED 19:03
DX: Z53.21 Procedure and treatment not carried out due to patient leaving prior to being seen by health care provider (principal)